=== PATIENT | female | born 1985 | race American Indian/Alaskan Native ===

== ENCOUNTER 2020-12-02 13:50 | Emergency (ER) | payer OTHER ==
[2020-12-02] MEDS ORDERED: ASPIRIN 325 MG TAB PO ONE (15:06)
[2020-12-02 15:23] LABS: Basophils # (Auto) 0.2 K/mm3 (0.0-0.1); Basophils % (Auto) 0.9 % (0.0-1.8); Hematocrit 38.5 % (30.3-42.9); Hemoglobin 13.5 gm/dl (10.1-14.3); Lymphocytes # (Auto) 2.6 K/mm3 (1.2-5.4); Lymphocytes % (Auto) 16.1 % (13.4-35.0); Mean Corpuscular HGB Conc 35 % (30-34); Mean Corpuscular Volume 84 fl (79-97); Monocytes # (Auto) 0.4 K/mm3 (0.0-0.8); Monocytes % (Auto) 2.7 % (0.0-7.3); Platelet Count 300 K/mm3 (140-440); Red Blood Count 4.61 M/mm3 (3.65-5.03); Red Cell Distribution Width 13.2 % (13.2-15.2)
[2020-12-02 15:44] LABS: Alanine Aminotransferase 12 units/L (7-56); BUN/Creatinine Ratio 13; Blood Urea Nitrogen 10 mg/dL (7-17); Calcium 8.7 mg/dL (8.4-10.2); Hemolysis Index 2
--- NOTE | 2020-12-02 15:49 | XRay Report ---
CHEST 1 VIEW INDICATION / CLINICAL INFORMATION: dizzy. COMPARISON: 05/03/2019 FINDINGS: SUPPORT DEVICES: None. HEART / MEDIASTINUM: No significant abnormality. LUNGS / PLEURA: No significant pulmonary or pleural abnormality. No pneumothorax. ADDITIONAL FINDINGS: No significant additional findings. IMPRESSION: 1. No acute findings. Signer Name: Sky Walden MD Signed: 12/02/2020 3:45 PM Workstation Name: [id number]
[2020-12-02] MEDS ORDERED: ONDANSETRON 4 MG/2 ML INJ IV ONE (22:45)
[2020-12-02] MEDS ORDERED: SODIUM CHLORIDE 0.9% 1000 ML 1,000 ML IV ONE (22:45)
[2020-12-02] MEDS ORDERED: FAMOTIDINE 20 MG/2 ML INJ IV ONE (22:46)
--- NOTE | 2020-12-02 23:41 | Cat Scan Report ---
CT head without contrast INDICATION : Dizziness. TECHNIQUE: Axial imaging performed from the skull apex through the skull base without the use of con trast. All CT examinations performed at this facility utilize dose modulation, iterative reconstruct ion or weight-based dosing, when appropriate, to reduce radiation dose to as low as reasonably achiev able. COMPARISON: None FINDINGS: No acute intracranial hemorrhage or parenchymal abnormality. Ventricles are normal in si ze and appear symmetric. Soft tissues including the orbits appear normal. No acute osseous abnorm ality. Sinuses and mastoid air cells are clear. IMPRESSION: No acute abnormality. Signer Name: Lon Novoa MD Signed: 12/02/2020 11:37 PM Workstation Name: [id number]
--- NOTE | 2020-12-03 02:03 | Emergency Department Report ---
ED General Adult HPI - General Chief complaint: Dizziness Stated complaint: DIZZY/VOMITING Source: patient Mode of arrival: Wheelchair Limitations: No Limitations - History of Present Illness Initial comments: Patient is a 34-year-old -[place] female with a history of morbid obesity, hypertension, frw-goovuvv-hgvawwcef diabetes who presents to the ED with complaint of acute onset persistent intractable nausea and vomiting, lightheadedness and dizziness for the last 3 days. Patient states that she has not been able to keep anything down in the last 3 days since the onset of the symptoms. Patient states that she has felt dizzy with any movement and headache. Patient denies fever, chills, diarrhea, abdominal pain, chest pain or shortness of breath, change in vision or headache. Patient states that no one else at home has had similar symptoms. MD Complaint: Nausea and vomiting, lightheadedness and dizziness -: Sudden, days(s) (3) Location: head, abdomen Radiation: non-radiation Severity scale (0 -10): 6 Quality: aching Consistency: constant Improves with: none Worsens with: movement Associated Symptoms: denies other symptoms, loss of appetite, malaise, nausea/vomiting. denies: confusion, chest pain, cough, diaphoresis, fever/chills, headaches, rash, seizure, shortness of breath, weakness Treatments Prior to Arrival: none - Related Data Home Medications Medication Instructions Recorded Confirmed Last Taken Aspirin [Baby Aspirin] 81 mg PO DAILY 02/11/13 04/12/14 04/11/14 81 mg Ferrous Sulfate [Ferrous Sulfate 300 mg PO DAILY 03/11/14 04/12/14 03/11/14 11:00 Oral Liq 300 Mg/5 Ml] Insulin NPH, Human [NovoLIN N] 10 units SC QPM 03/11/14 04/12/14 04/11/14 Insulin NPH, Human [NovoLIN N] 24 units SC QAM 03/11/14 04/12/14 04/11/14 Insulin Regular, Human [HumuLIN R] 12 units SC QAM 03/11/14 04/12/14 04/11/14 08:30 labetaloL [Normodyne] 400 mg PO BID 03/11/14 04/12/14 04/11/14 21:30 Previous Rx's Medication Instructions Recorded Last Taken Type Docusate Sodium [Colace CAP] 100 mg PO Q12H PRN #60 capsule 03/14/14 04/03/14 Rx Ferrous Sulfate [Feosol 325 MG tab] 325 mg PO TID #90 tablet 03/14/14 04/11/14 Rx labetaloL [Labetalol 200mg TAB] 200 mg PO BID #60 tablet 03/14/14 04/11/14 21:30 Rx Cholecalciferol (Vitamin D3) 5,000 unit PO DAILY #30 tablet 03/17/14 Unknown Rx [Vitamin D3] NIFEdipine*For Tocolysis only* 20 mg PO TID #180 capsule 03/17/14 04/11/14 21:30 Rx [PROCARDIA*For Tocolysis only*] Ferrous Sulfate [Feosol 325 MG tab] 325 mg PO TID #90 tablet 04/12/14 Unknown Rx Ibuprofen [Motrin 800 MG tab] 800 mg PO Q8H PRN #90 tablet 04/12/14 Unknown Rx NIFEdipine XL [Procardia Xl] 60 mg PO QDAY #30 tablet 04/12/14 Unknown Rx glipiZIDE [glipiZIDE XL] 5 mg PO DAILY #30 tab.er.24 04/12/14 Unknown Rx metFORMIN [Glucophage] 500 mg PO BID #60 tablet 04/12/14 Unknown Rx oxyCODONE /ACETAMINOPHEN [Percocet 1 tab PO Q6HR PRN #30 tablet 04/12/14 Unknown Rx 5/325 mg] Metoprolol [Lopressor] 12.5 mg PO BID #30 tablet 06/23/14 Unknown Rx Acetaminophen/Codeine [Tylenol #3] 1 tab PO Q6H PRN #20 tab 04/21/15 Unknown Rx Ibuprofen [Motrin 800 MG tab] 800 mg PO Q8HR PRN #30 tablet 04/21/15 Unknown Rx Penicillin Vk [Veetids TAB] 500 mg PO Q6HR #40 tablet 04/21/15 Unknown Rx Lispro Insulin [HumaLOG] See Protocol SQ QAC #10 ml 05/03/19 Unknown Rx lisinopriL [Zestril TAB] 20 mg PO QDAY #30 tablet 05/03/19 Unknown Rx Famotidine [Pepcid] 20 mg PO BID #60 tablet 12/03/20 Unknown Rx Meclizine [Antivert] 25 mg PO TID PRN #30 tab 12/03/20 Unknown Rx Ondansetron [Zofran Odt] 4 mg PO Q8HR PRN #20 tab.rapdis 12/03/20 Unknown Rx Allergies Allergy/AdvReac Type Severity Reaction Status Date / Time No Known Allergies Allergy Verified 12/02/20 15:02 ED Review of Systems ROS: Stated complaint: DIZZY/VOMITING Other details as noted in HPI Constitutional: malaise, weakness, other (Lightheadedness) Eyes: denies: eye pain, eye discharge, vision change ENT: denies: ear pain, throat pain Respiratory: denies: cough, shortness of breath, wheezing Cardiovascular: denies: chest pain, palpitations Endocrine: no symptoms reported Gastrointestinal: nausea, vomiting. denies: abdominal pain, diarrhea, constipation, hematemesis Genitourinary: denies: urgency, dysuria, discharge Musculoskeletal: myalgia. denies: back pain, joint swelling Skin: denies: rash, lesions Neurological: headache. denies: weakness, paresthesias Psychiatric: anxiety. denies: depression, auditory hallucinations, visual hallucinations, suicidal thoughts Hematological/Lymphatic: denies: easy bleeding, easy bruising ED Past Medical Hx - Past Medical History Hx Hypertension: Yes Hx Congestive Heart Failure: No Hx Diabetes: Yes Hx Deep Vein Thrombosis: No Hx Renal Disease: No Hx Sickle Cell Disease: No Hx Seizures: No Hx Asthma: No Hx COPD: No Hx HIV: No - Surgical History Additional Surgical History: - Social History Smoking Status: Never Smoker Substance Use Type: None - Medications Home Medications: Home Medications Medication Instructions Recorded Confirmed Last Taken Type Aspirin [Baby Aspirin] 81 mg PO DAILY 02/11/13 04/12/14 04/11/14 History 81 mg Ferrous Sulfate [Ferrous Sulfate 300 mg PO DAILY 03/11/14 04/12/14 03/11/14 11:00 History Oral Liq 300 Mg/5 Ml] Insulin NPH, Human [NovoLIN N] 10 units SC QPM 03/11/14 04/12/14 04/11/14 History Insulin NPH, Human [NovoLIN N] 24 units SC QAM 03/11/14 04/12/14 04/11/14 History Insulin Regular, Human [HumuLIN R] 12 units SC QAM 03/11/14 04/12/14 04/11/14 08:30 History labetaloL [Normodyne] 400 mg PO BID 03/11/14 04/12/14 04/11/14 21:30 History Docusate Sodium [Colace CAP] 100 mg PO Q12H PRN #60 capsule 03/14/14 04/12/14 04/03/14 Rx Ferrous Sulfate [Feosol 325 MG tab] 325 mg PO TID #90 tablet 03/14/14 04/12/14 04/11/14 Rx labetaloL [Labetalol 200mg TAB] 200 mg PO BID #60 tablet 03/14/14 04/12/14 04/11/14 21:30 Rx Cholecalciferol (Vitamin D3) 5,000 unit PO DAILY #30 tablet 03/17/14 04/12/14 Unknown Rx [Vitamin D3] NIFEdipine*For Tocolysis only* 20 mg PO TID #180 capsule 03/17/14 04/12/1403/15 21:30 Rx [PROCARDIA*For Tocolysis only*] Ferrous Sulfate [Feosol 325 MG tab] 325 mg PO TID #90 tablet 04/12/14 Unknown Rx Ibuprofen [Motrin 800 MG tab] 800 mg PO Q8H PRN #90 tablet 04/12/14 Unknown Rx NIFEdipine XL [Procardia Xl] 60 mg PO QDAY #30 tablet 04/12/14 Unknown Rx glipiZIDE [glipiZIDE XL] 5 mg PO DAILY #30 tab.er.24 04/12/14 Unknown Rx metFORMIN [Glucophage] 500 mg PO BID #60 tablet 04/12/14 Unknown Rx oxyCODONE /ACETAMINOPHEN [Percocet 1 tab PO Q6HR PRN #30 tablet 04/12/14 Unknown Rx 5/325 mg] Metoprolol [Lopressor] 12.5 mg PO BID #30 tablet 06/23/14 Unknown Rx Acetaminophen/Codeine [Tylenol #3] 1 tab PO Q6H PRN #20 tab 04/21/15 Unknown Rx Ibuprofen [Motrin 800 MG tab] 800 mg PO Q8HR PRN #30 tablet 04/21/15 Unknown Rx Penicillin Vk [Veetids TAB] 500 mg PO Q6HR #40 tablet 04/21/15 Unknown Rx Lispro Insulin [HumaLOG] See Protocol SQ QAC #10 ml 05/03/19 Unknown Rx lisinopriL [Zestril TAB] 20 mg PO QDAY #30 tablet 05/03/19 Unknown Rx Famotidine [Pepcid] 20 mg PO BID #60 tablet 12/03/20 Unknown Rx Meclizine [Antivert] 25 mg PO TID PRN #30 tab 12/03/20 Unknown Rx Ondansetron [Zofran Odt] 4 mg PO Q8HR PRN #20 tab.rapdis 12/03/20 Unknown Rx ED Physical Exam - General Limitations: No Limitations General appearance: alert, in no apparent distress, anxious - Head Head exam: Present: atraumatic, normocephalic, normal inspection - Eye Eye exam: Present: normal appearance, PERRL, EOMI Pupils: Present: normal accommodation - ENT ENT exam: Present: normal exam, normal orophraynx, mucous membranes moist, TM's normal bilaterally, normal external ear exam - Neck Neck exam: Present: normal inspection, full ROM - Respiratory Respiratory exam: Present: normal lung sounds bilaterally. Absent: respiratory distress, wheezes, rales, rhonchi, chest wall tenderness, accessory muscle use, decreased breath sounds, prolonged expiratory - Cardiovascular Cardiovascular Exam: Present: normal rhythm, tachycardia, normal heart sounds. Absent: systolic murmur, diastolic murmur, rubs, gallop - GI/Abdominal GI/Abdominal exam: Present: soft, normal bowel sounds. Absent: tenderness, guarding, rebound, hyperactive bowel sounds, hypoactive bowel sounds, organomegaly - Extremities Exam Extremities exam: Present: normal inspection, full ROM, normal capillary refill - Back Exam Back exam: Present: normal inspection, full ROM. Absent: tenderness, CVA tenderness (R), CVA tenderness (L), muscle spasm, paraspinal tenderness, vertebral tenderness - Neurological Exam Neurological exam: Present: alert, oriented X3, CN II-XII intact, normal gait, reflexes normal - Psychiatric Psychiatric exam: Present: normal affect, normal mood, anxious - Skin Skin exam: Present: warm, dry, intact, normal color. Absent: rash ED Course Vital Signs 12/02/20 12/03/20 12/03/20 15:05 02:25 04:41 Temperature 98.2 F Pulse Rate 105 H 111 H 111 H Pulse Rate [ Lying] Pulse Rate [ Sitting] Pulse Rate [ Standing] Respiratory 20 16 14 Rate Blood Pressure 237/137 Blood Pressure 170/102 171/100 [Left] Blood Pressure [Lying] Blood Pressure [Sitting] Blood Pressure [Standing] O2 Sat by Pulse 100 Oximetry 12/03/20 04:44 Temperature Pulse Rate Pulse Rate [ 111 H Lying] Pulse Rate [ 116 H Sitting] Pulse Rate [ 123 H Standing] Respiratory Rate Blood Pressure Blood Pressure [Left] Blood Pressure 171/100 [Lying] Blood Pressure 178/94 [Sitting] Blood Pressure 176/96 [Standing] O2 Sat by Pulse Oximetry ED Medical Decision Making - Lab Data Result diagrams: 12/02/20 15:11 12/02/20 15:11 - Radiology Data Radiology results: report reviewed, image reviewed [facility] [address] [place] [address] XRay Report Signed Patient: RONNY SCHMIDT MR#: [id number] : 1985 Acct:[id number] Age/Sex: 34 / F ADM Date: 12/02/20 Loc: ED Attending Dr: Ordering Physician: ED MD CAPO Date of Service: 12/02/20 Procedure(s): XR chest routine 2V Accession Number(s): [id number] cc: ED MD CAPO Fluoro Time In Minutes: CHEST 1 VIEW INDICATION / CLINICAL INFORMATION: dizzy. COMPARISON: 05/03/2019 FINDINGS: SUPPORT DEVICES: None. HEART / MEDIASTINUM: No significant abnormality. LUNGS / PLEURA: No significant pulmonary or pleural abnormality. No pneumothorax. ADDITIONAL FINDINGS: No significant additional findings. IMPRESSION: 1. No acute findings. Signer Name: Sky Walden MD Signed: 12/02/2020 3:45 PM Workstation Name: [id number] Transcribed By: SB Dictated By: SKY WALDEN MD Electronically Authenticated By: SKY WALDEN MD Signed Date/Time: 12/02/201544 DD/ 44 TD/TT: [facility] [address] [place] [address] Cat Scan Report Signed Patient: RONNY SCHMIDT MR#: [id number] : 1985 Acct:[id number] Age/Sex: 34 / F ADM Date: 12/02/20 Loc: ED Attending Dr: Ordering Physician: CHRIS DIOP Date of Service: 12/02/20 Procedure(s): CT head/brain wo con Accession Number(s): [id number] cc: CHRIS DIOP CT head without contrast INDICATION : Dizziness. TECHNIQUE: Axial imaging performed from the skull apex through the skull base without the use of contrast. All CT examinations performed at this facility utilize dose modulation, iterative reconstruction or weight-based dosing, when appropriate, to reduce radiation dose to as low as reasonably achievable. COMPARISON: None FINDINGS: No acute intracranial hemorrhage or parenchymal abnormality. Ventricles are normal in size and appear symmetric. Soft tissues including the orbits appear normal. No acute osseous abnormality. Sinuses and mastoid air cells are clear. IMPRESSION: No acute abnormality. Signer Name: Lon Novoa MD Signed: 12/02/2020 11:37 PM Workstation Name: [id number] Transcribed By: BC Dictated By: Lon Novoa MD Electronically Authenticated By: Lon Novoa MD Signed Date/Time: 12/02/202336 DD/ 35 TD/TT: - Medical Decision Making This is a 34-year-old -Swazi female with a history of morbid obesity, hypertension, wuy-clmbict-xcxkhlimc diabetes who presents to the ED with complaint of acute onset persistent intractable nausea and vomiting, lightheadedness and dizziness for the last 3 days. Patient states that she has not been able to keep anything down in the last 3 days since the onset of the symptoms. Patient states that she has felt dizzy with any movement and headache. In the ED, patient is alert and oriented x3 and is not in any distress but tachycardic in triage. Patient was treated in the ED with 3 L of normal saline IV, antiemetics and anxiolytics. Lab test results were reviewed and initially the patient had hyperglycemia of 310 mg/dL but after 2 L of IV fluids, the iszda-yh-lrie glucose was 180 mg/dL. The head CT scan without contrast showed no acute intracranial abnormalities or hemorrhage. The chest x- ray showed no acute cardiopulmonary abnormalities or pneumonitis. On reevaluation, patient's tachycardia improved significantly and resolved, and patient felt better, was ambulatory in the ED with no difficulty and the orthostatic blood pressure was unremarkable.. Patient was therefore discharged home on antiemetics and advised to continue taking her regular medications as well as blood pressure medications. Patient is advised to maintain a clear liquid diet for 12 to 24 hours and follow-up with her primary care physician in 5 to 7 days for reevaluation. Patient was also advised to return to the ED immediately if symptoms get worse. - Differential Diagnosis dizziness; lightheadedness; dehydration; Critical care attestation.: If time is entered above; I have spent that time in minutes in the direct care of this critically ill patient, excluding procedure time. ED Disposition Clinical Impression: Nausea and vomiting in adult patient, Dizziness and giddiness, Viral gastroenteritis Disposition: 01 HOME / SELF CARE / HOMELESS Is pt being admited?: No Does the pt Need Aspirin: No Condition: Stable Instructions: Viral Gastroenteritis, Adult, Ovvj-cq-Daoi, Nausea and Vomiting, Adult, Atcr-no-Yenq, Dizziness, Ybqt-qd-Cjyk Additional Instructions: All lab test results were reviewed and are all nonactionable. Chest x-ray showed no acute cardiopulmonary abnormalities or pneumonitis. The head CT scan without contrast showed no acute intracranial abnormalities or hemorrhage. Your symptoms are likely due to a viral syndrome, leading to persistent nausea and vomiting and lightheadedness or dizziness. Therefore take medications with food, drink plenty of fluids and follow-up with your primary care physician in 3 to 5 days for reevaluation. Return to the ED immediately if symptoms get worse. Prescriptions: Meclizine [Antivert] 25 mg PO TID PRN #30 tab PRN Reason: Vertigo Famotidine [Pepcid] 20 mg PO BID #60 tablet Ondansetron [Zofran Odt] 4 mg PO Q8HR PRN #20 tab.rapdis PRN Reason: Nausea Referrals: [facility] [Provider Group] - 3-5 Days Time of Disposition: 06:37 Print Language: AZERBAIJANI
[2020-12-03] MEDS ORDERED: SODIUM CHLORIDE 0.9% 1000 ML 1,000 ML IV ONE ×2 (02:09→05:05)
[2020-12-03 04:42] VITALS: BP 171/100
[2020-12-03] MEDS ORDERED: LORazepam 2 MG/ML VIAL IV ONE (05:05)
--- NOTE | 2020-12-05 13:23 | Electrocardiograph Report ---
[facility] Test Date: 2020-12-02 Test Time: 15:19:48 Pat Name: RONNY CSHMIDT Department: Room: Gender: F Operations Dispatcher: TV : 1985 Requested By: LARS BERMEO Order Number: [id number] Reading MD: Lenka Mo Measurements Intervals [place] Rate: 100 P: 61 GA: 155 QRS: 30 QRSD: 71 T: 54 QT: 389 QTc: 504 Interpretive Statements Sinus tachycardia Probable left atrial enlargement Prolonged QT interval No previous ECG available for comparison Electronically Signed On 12-05-2020 13:23:22 EDT by Lenka Mo
== END 2020-12-03 06:45 | disposition home or self-care (01) ==
LOC: ED 13:50
DX: A08.4 Viral intestinal infection, unspecified (principal); R11.2 Nausea with vomiting, unspecified; R42 Dizziness and giddiness; E11.9 Type 2 diabetes mellitus without complications; I10 Essential (primary) hypertension; E66.01 Morbid (severe) obesity due to excess calories; Z68.41 Body mass index [BMI] 40.0-44.9, adult; Z79.899 Other long term (current) drug therapy; Z98.890 Other specified postprocedural states
CPT/HCPCS: 36415; 70450; 71046; 80053; 82962; 84484; 85025; 93005; 96361; 96374; 96375; 99284; J2060; J2405; J7030

== ENCOUNTER 2020-12-24 11:29 | Emergency (ER) | payer SELFPAY ==
[2020-12-24] MEDS ORDERED: SODIUM CHLORIDE 0.9% 1000 ML 1,000 ML IV ONE ×2 (12:22→15:53)
[2020-12-24] MEDS ORDERED: METOCLOPRAMIDE 10 MG/2 ML INJ IV ONE (12:22)
--- NOTE | 2020-12-24 12:26 | Emergency Department Report ---
HPI - General Chief Complaint: Dizziness Time Seen by Provider: 12/24/20 12:21 - HPI HPI: This is a 34-year-old -Turkish female presents to the emergency department with a complaint of a 3-week history of intermittent, but progressively worsening, nausea with vomiting, and lightheadedness/dizziness. The patient went into see her PCP, whom she has been following up with over the past few weeks regarding the symptoms, and she was told to come to the emergency department after she was found to have some borderline hypotension and hypoglycemia. The patient has a history of insulin-dependent diabetes. Her Accu-Chek in the office today was about 400. Blood work that she brought with her also shows some mild hypokalemia. Her blood pressure in the office today was slightly low at a systolic of about 90. She denies any headache, vision ch daniel, slurred speech, numbness or paresthesias, fever, chest pain. She did not take anything, nor receive anything, for her symptoms prior to presentation today. ED Past Medical Hx - Past Medical History Previous Medical History?: Yes Hx Hypertension: Yes Hx Congestive Heart Failure: No Hx Diabetes: Yes Hx Deep Vein Thrombosis: No Hx Renal Disease: No Hx Sickle Cell Disease: No Hx Seizures: No Hx Asthma: No Hx COPD: No Hx HIV: No - Surgical History Past Surgical History?: Yes Additional Surgical History: - Social History Smoking Status: Never Smoker Substance Use Type: None - Medications Home Medications: Home Medications Medication Instructions Recorded Confirmed Last Taken Type Aspirin [Baby Aspirin] 81 mg PO DAILY 02/11/13 04/12/14 04/11/14 History 81 mg Ferrous Sulfate [Ferrous Sulfate 300 mg PO DAILY 03/11/14 04/12/14 03/11/14 11:00 History Oral Liq 300 Mg/5 Ml] Insulin NPH, Human [NovoLIN N] 10 units SC QPM 03/11/14 04/12/14 04/11/14 History Insulin NPH, Human [NovoLIN N] 24 units SC QAM 03/11/14 04/12/14 04/11/14 History Insulin Regular, Human [HumuLIN R] 12 units SC QAM 03/11/14 04/12/14 04/11/14 08:30 History labetaloL [Normodyne] 400 mg PO BID 03/11/14 04/12/14 04/11/14 21:30 History Docusate Sodium [Colace CAP] 100 mg PO Q12H PRN #60 capsule 03/14/14 04/12/14 04/03/14 Rx Ferrous Sulfate [Feosol 325 MG tab] 325 mg PO TID #90 tablet 03/14/14 04/12/14 04/11/14 Rx labetaloL [Labetalol 200mg TAB] 200 mg PO BID #60 tablet 03/14/14 04/12/14 04/11/14 21:30 Rx Cholecalciferol (Vitamin D3) 5,000 unit PO DAILY #30 tablet 03/17/14 04/12/14 Unknown Rx [Vitamin D3] NIFEdipine*For Tocolysis only* 20 mg PO TID #180 capsule 03/17/14 04/12/14 04/11/14 21:30 Rx [PROCARDIA*For Tocolysis only*] Ferrous Sulfate [Feosol 325 MG tab] 325 mg PO TID #90 tablet 04/12/14 Unknown Rx Ibuprofen [Motrin 800 MG tab] 800 mg PO Q8H PRN #90 tablet 04/12/14 Unknown Rx NIFEdipine XL [Procardia Xl] 60 mg PO QDAY #30 tablet 04/12/14 Unknown Rx glipiZIDE [glipiZIDE XL] 5 mg PO DAILY #30 tab.er.24 04/12/14 Unknown Rx metFORMIN [Glucophage] 500 mg PO BID #60 tablet 04/12/14 Unknown Rx oxyCODONE /ACETAMINOPHEN [Percocet 1 tab PO Q6HR PRN #30 tablet 04/12/14 Unknown Rx 5/325 mg] Metoprolol [Lopressor] 12.5 mg PO BID #30 tablet 06/23/14 Unknown Rx Acetaminophen/Codeine [Tylenol #3] 1 tab PO Q6H PRN #20 tab 04/21/15 Unknown Rx Ibuprofen [Motrin 800 MG tab] 800 mg PO Q8HR PRN #30 tablet 04/21/15 Unknown Rx Penicillin Vk [Veetids TAB] 500 mg PO Q6HR #40 tablet 04/21/15 Unknown Rx Lispro Insulin [HumaLOG] See Protocol SQ QAC #10 ml 05/03/19 Unknown Rx lisinopriL [Zestril TAB] 20 mg PO QDAY #30 tablet 05/03/19 Unknown Rx Famotidine [Pepcid] 20 mg PO BID #60 tablet 12/03/20 Unknown Rx Meclizine [Antivert] 25 mg PO TID PRN #30 tab 12/03/20 Unknown Rx Ondansetron [Zofran Odt] 4 mg PO Q8HR PRN #20 tab.rapdis 12/03/20 Unknown Rx Metoclopramide [Reglan] 10 mg PO TID PRN #20 tab 12/24/20 Unknown Rx ED Review of Systems ROS: Stated complaint: dr albert, dizzy vomiting nausea Other details as noted in HPI Comment: All other systems reviewed and negative Constitutional: denies: chills, fever Eyes: denies: eye pain, vision change ENT: denies: ear pain, throat pain Respiratory: denies: cough, shortness of breath Cardiovascular: denies: chest pain, palpitations Gastrointestinal: nausea, vomiting Genitourinary: denies: dysuria, discharge Musculoskeletal: denies: back pain, arthralgia Skin: denies: rash, lesions Neurological: other (Dizziness/lightheadedness). denies: headache Physical Exam - Physical Exam Vital Signs: Vital Signs 12/24/20 11:59 Temperature 98.1 F Pulse Rate 112 H Respiratory 18 Rate Blood Pressure 128/88 O2 Sat by Pulse 98 Oximetry Physical Exam: GENERAL: The patient is well-developed well-nourished. HENT: Normocephalic. Atraumatic. Patient has moist mucous membranes. EYES: Extraocular motions are intact. No nystagmus. NECK: Supple. Trachea is midline. CHEST/LUNGS: Clear to auscultation. There is no respiratory distress noted. HEART/CARDIOVASCULAR: Regular. There is no tachycardia. There is no murmur. ABDOMEN: Abdomen is soft, nontender. Patient has normal bowel sounds. SKIN: Skin is warm and dry. NEURO: The patient is awake, alert, and oriented. The patient is cooperative. The patient has no focal neurologic deficits. Normal speech. No facial asymmetry. Cranial nerves II through XII grossly intact. No pronator drift or dysmetria. MUSCULOSKELETAL: There is no tenderness or deformity. There is no limitation range of motion. ED Course Vital Signs 12/24/20 11:59 Temperature 98.1 F Pulse Rate 112 H Respiratory 18 Rate Blood Pressure 128/88 O2 Sat by Pulse 98 Oximetry ED Medical Decision Making - Lab Data Result diagrams: 12/24/20 12:58 12/24/20 12:58 Lab Results 12/24/20 12/24/20 12/24/20 Range/Units 12:58 12:58 12:58 WBC 13.1 H (4.5-11.0) K/mm3 RBC 4.59 (3.65-5.03) M/mm3 Hgb 12.9 (10.1-14.3) gm/dl Hct 38.0 (30.3-42.9) % MCV 83 (79-97) fl MCH 28 (28-32) pg MCHC 34 (30-34) % RDW 13.6 (13.2-15.2) % Plt Count 349 (140-440) K/mm3 Lymph % (Auto) 28.2 (13.4-35.0) % Edmunds % (Auto) 3.8 (0.0-7.3) % Eos % (Auto) 0.7 (0.0-4.3) % Baso % (Auto) 0.6 (0.0-1.8) % Lymph # (Auto) 3.7 (1.2-5.4) K/mm3 Edmunds # (Auto) 0.5 (0.0-0.8) K/mm3 Eos # (Auto) 0.1 (0.0-0.4) K/mm3 Baso # (Auto) 0.1 (0.0-0.1) K/mm3 Seg Neutrophils % 66.7 (40.0-70.0) % Seg Neutrophils # 8.8 H (1.8-7.7) K/mm3 VBG pH (7.320-7.420) Sodium 135 L (137-145) mmol/L Potassium 3.4 L (3.6-5.0) mmol/L Chloride 93.0 L (98-107) mmol/L Carbon Dioxide 33 H (22-30) mmol/L Anion Gap 12 mmol/L BUN 11 (7-17) mg/dL Creatinine 1.0 (0.6-1.2) mg/dL Estimated GFR > 60 ml/min BUN/Creatinine Ratio 11 % Glucose 434 H (65-100) mg/dL POC Glucose (70-105) mg/dL Calcium 9.2 (8.4-10.2) mg/dL Total Bilirubin 0.30 (0.1-1.2) mg/dL AST 7 (5-40) units/L ALT 6 L (7-56) units/L Alkaline Phosphatase 169 H (35-129) units/L Troponin T < 0.010 (0.00-0.029) ng/mL Total Protein 7.7 (6.3-8.2) g/dL Albumin 3.0 L (3.9-5) g/dL Albumin/Globulin Ratio 0.6 % TSH 1.310 (0.270-4.200) mlU/mL HCG, Qual (Negative) 12/24/20 12/24/20 12/24/20 Range/Units 12:58 12:58 14:24 WBC (4.5-11.0) K/mm3 RBC (3.65-5.03) M/mm3 Hgb (10.1-14.3) gm/dl Hct (30.3-42.9) % MCV (79-97) fl MCH (28-32) pg MCHC (30-34) % RDW (13.2-15.2) % Plt Count (140-440) K/mm3 Lymph % (Auto) (13.4-35.0) % Edmunds % (Auto) (0.0-7.3) % Eos % (Auto) (0.0-4.3) % Baso % (Auto) (0.0-1.8) % Lymph # (Auto) (1.2-5.4) K/mm3 Edmunds # (Auto) (0.0-0.8) K/mm3 Eos # (Auto) (0.0-0.4) K/mm3 Baso # (Auto) (0.0-0.1) K/mm3 Seg Neutrophils % (40.0-70.0) % Seg Neutrophils # (1.8-7.7) K/mm3 VBG pH 7.392 (7.320-7.420) Sodium (137-145) mmol/L Potassium (3.6-5.0) mmol/L Chloride (98-107) mmol/L Carbon Dioxide (22-30) mmol/L Anion Gap mmol/L BUN (7-17) mg/dL Creatinine (0.6-1.2) mg/dL Estimated GFR ml/min BUN/Creatinine Ratio % Glucose (65-100) mg/dL POC Glucose 341 H (70-105) mg/dL Calcium (8.4-10.2) mg/dL Total Bilirubin (0.1-1.2) mg/dL AST (5-40) units/L ALT (7-56) units/L Alkaline Phosphatase (35-129) units/L Troponin T (0.00-0.029) ng/mL Total Protein (6.3-8.2) g/dL Albumin (3.9-5) g/dL Albumin/Globulin Ratio % TSH (0.270-4.200) mlU/mL HCG, Qual Negative (Negative) 12/24/20 Range/Units 15:51 WBC (4.5-11.0) K/mm3 RBC (3.65-5.03) M/mm3 Hgb (10.1-14.3) gm/dl Hct (30.3-42.9) % MCV (79-97) fl MCH (28-32) pg MCHC (30-34) % RDW (13.2-15.2) % Plt Count (140-440) K/mm3 Lymph % (Auto) (13.4-35.0) % Edmunds % (Auto) (0.0-7.3) % Eos % (Auto) (0.0-4.3) % Baso % (Auto) (0.0-1.8) % Lymph # (Auto) (1.2-5.4) K/mm3 Edmunds # (Auto) (0.0-0.8) K/mm3 Eos # (Auto) (0.0-0.4) K/mm3 Baso # (Auto) (0.0-0.1) K/mm3 Seg Neutrophils % (40.0-70.0) % Seg Neutrophils # (1.8-7.7) K/mm3 VBG pH (7.320-7.420) Sodium (137-145) mmol/L Potassium (3.6-5.0) mmol/L Chloride (98-107) mmol/L Carbon Dioxide (22-30) mmol/L Anion Gap mmol/L BUN (7-17) mg/dL Creatinine (0.6-1.2) mg/dL Estimated GFR ml/min BUN/Creatinine Ratio % Glucose (65-100) mg/dL POC Glucose 306 H (70-105) mg/dL Calcium (8.4-10.2) mg/dL Total Bilirubin (0.1-1.2) mg/dL AST (5-40) units/L ALT (7-56) units/L Alkaline Phosphatase (35-129) units/L Troponin T (0.00-0.029) ng/mL Total Protein (6.3-8.2) g/dL Albumin (3.9-5) g/dL Albumin/Globulin Ratio % TSH (0.270-4.200) mlU/mL HCG, Qual (Negative) - EKG Data -: EKG Interpreted by Me EKG shows normal: sinus rhythm, axis, intervals (Prolonged QTC), QRS complexes, ST-T waves Rate: tachycardia (108 bpm) - EKG Data When compared to previous EKG there are: no significant change Interpretation: unchanged when compared t (12/02/20) - Medical Decision Making This patient presents to the emergency department, sent in by her PCP, with a complaint of lightheadedness/dizziness, some borderline hypotension, and hyperglycemia. On examination the patient does not have any focal, motor or sensory deficits and her cranial nerves are intact. Heart and lung sounds are normal au scultation and the patient does not appear in any respiratory or acute distress. EKG does not have any morphology consistent with ST elevation myocardial infarction or any arrhythmia. Patient's labs show some mild hypokalemia, mild hypochloremia, and hyperglycemia with a blood sugar of about 430. There is no elevation in the anion gap, no venous acidosis, and therefore the patient does not appear in diabetic ketoacidosis. She was given IV fluid resuscitation and a dose of IV insulin. Upon reevaluation the patient's blood sugar has come down to about 300. She was also given a dose of IV Reglan and says that her nausea has completely resolved. The patient was able to pass an oral challenge. Vital signs have been reassuring throughout her ED course including being afebrile. The patient has been reevaluated multiple times over multiple hours and says she is feeling greatly improved. She will be discharged home to follow-up with her primary care physician. She still has to take her Metformin and her Basaglar. We discussed dietary changes such as decreased sugar, carbohydrates, starches, and keeping a blood sugar log. She will return to the emergency department with any worsening of her symptoms or with any acute distress. Critical Care Time: No Critical care attestation.: If time is entered above; I have spent that time in minutes in the direct care of this critically ill patient, excluding procedure time. ED Disposition Clinical Impression: Hyperglycemia, Hypokalemia Nausea & vomiting Qualifiers: Vomiting type: unspecified Vomiting Intractability: non-intractable Qualified Code(s): R11.2 - Nausea with vomiting, unspecified Disposition: HOME / SELF CARE / HOMELESS Is pt being admited?: No Condition: Stable Instructions: Hypokalemia, Hyperglycemia, Nausea and Vomiting, Adult, Potassium Content of Foods, Blood Glucose Monitoring, Adult Additional Instructions: Please follow-up with your primary care physician in the next few days. Try to stay away from foods that are high in sugar, carbohydrates and starches. Keep a blood sugar log. Return to the emergency department with any worsening of your symptoms, new or concerning symptoms not addressed during this current emergency department visit, or with any acute distress. Prescriptions: Metoclopramide [Reglan] 10 mg PO TID PRN #20 tab PRN Reason: Nausea Referrals: PRIMARY CARE, [Primary Care Provider] - 2-3 Days Time of Disposition: 15:42
[2020-12-24 13:42] LABS: Alanine Aminotransferase 6 units/L (7-56); BUN/Creatinine Ratio 11; Blood Urea Nitrogen 11 mg/dL (7-17); Calcium 9.2 mg/dL (8.4-10.2); Hemolysis Index 5
[2020-12-24 13:44] LABS: Basophils # (Auto) 0.1 K/mm3 (0.0-0.1); Basophils % (Auto) 0.6 % (0.0-1.8); Eosinophils # (Auto) 0.1 K/mm3 (0.0-0.4); Eosinophils % (Auto) 0.7 % (0.0-4.3); Hemoglobin 12.9 gm/dl (10.1-14.3); Lymphocytes # (Auto) 3.7 K/mm3 (1.2-5.4); Lymphocytes % (Auto) 28.2 % (13.4-35.0); Mean Corpuscular HGB Conc 34 % (30-34); Mean Corpuscular Volume 83 fl (79-97); Monocytes # (Auto) 0.5 K/mm3 (0.0-0.8); Monocytes % (Auto) 3.8 % (0.0-7.3); Platelet Count 349 K/mm3 (140-440); Red Blood Count 4.59 M/mm3 (3.65-5.03); Red Cell Distribution Width 13.6 % (13.2-15.2)
[2020-12-24] MEDS ORDERED: POTASSIUM CHLORIDE ER 10 MEQ TAB PO NR (13:47)
[2020-12-24] MEDS ORDERED: INSULIN REGULAR, HUMAN 100 UNITS/1 ML IV ONE (13:47)
[2020-12-24 16:24] VITALS: BP 127/86
--- NOTE | 2020-12-25 09:10 | Electrocardiograph Report ---
[facility] Test Date: 2020-12-24 Test Time: 12:03:16 Pat Name: RONNY SCHMIDT Department: Room: Gender: F Supervisor Contact And Service Clerks: [place]INGS : 1985 Requested By: ROBERTO GRANGER Order Number: [id number] Reading MD: Lenka Mo Measurements Intervals [place] Rate: 108 P: 66 MO: 150 QRS: 48 QRSD: 75 T: 56 QT: 380 QTc: 510 Interpretive Statements Sinus tachycardia Anteroseptal infarct, age indeterminate Prolonged QT interval Compared to ECG 12/02/2020 15:19:48 No significant change Electronically Signed On 12-25-2020 9:09:45 EDT by Lenka Mo
== END 2020-12-24 16:26 | disposition home or self-care (01) ==
LOC: ED 11:29
DX: E11.65 Type 2 diabetes mellitus with hyperglycemia (principal); E87.6 Hypokalemia; I10 Essential (primary) hypertension; Z98.890 Other specified postprocedural states; R11.2 Nausea with vomiting, unspecified; Z79.899 Other long term (current) drug therapy
CPT/HCPCS: 36415; 80053; 82805; 82962; 84443; 84484; 84703; 85025; 93005; 96361; 96374; 96375; 99283; J2765; J7030; J1815

== ENCOUNTER 2021-10-06 01:55 | Emergency (ER) | payer OTHER ==
[2021-10-06] MEDS ORDERED: cephALEXin 500 MG CAP PO ONE (09:08)
[2021-10-06] MEDS ORDERED: TETANUS,DIPH,PERTUSS(ACELL) VACCINE 0.5 ML SYRINGE IM ONE (09:08)
[2021-10-06] MEDS ORDERED: KETOROLAC 10 MG TAB PO ONE (09:08)
[2021-10-06] MEDS ORDERED: NEOMY 3.5 MG/BACIT 400 UNITS/POLY B 5000 UNITS/GM OINT PACKET TP ONE (09:10)
--- NOTE | 2021-10-06 09:54 | Emergency Department Report ---
- General Chief complaint: Extremity Problem,Nontraumatic Stated complaint: SKIN ON FOOT COMING OFF Time Seen by Provider: 10/06/21 08:43 Source: patient Mode of arrival: Ambulatory Limitations: No Limitations - History of Present Illness Initial comments: 35-year-old black female with a past medical history of diabetes presents to the emergency department for evaluation of bilateral foot blisters and wound. She states that [place] in [place] and just sat there with her feet in the pool for a while, and when she got out and went home, she started to have pain and burning to her bilateral feet. She states that later she noticed that she had some blisters to the area with some draining clear white fluid. She states that she had minimal pain but blisters kept getting worse and some burst open and skin sloughed off remaining open sore so she decided to come to the emergency department for further evaluation. She denies fever. complaint: other (Blisters and open sore) -: Sudden, days(s) (1) Tetanus Up to Date: no Location: L foot, R foot Severity: mild, moderate Severity scale (0 -10): 3 Quality: burning, aching Consistency: constant Associated symptoms: denies other symptoms Treatments Prior to Arrival: none - Related Data Home Medications Medication Instructions Recorded Confirmed Last Taken Aspirin [Baby Aspirin] 81 mg PO DAILY 02/11/13 04/12/14 04/11/14 81 mg Ferrous Sulfate [Ferrous Sulfate 300 mg PO DAILY 03/11/14 04/12/14 03/11/14 11:00 Oral Liq 300 Mg/5 Ml] Insulin NPH, Human [NovoLIN N] 10 units SC QPM 03/11/14 04/12/14 04/11/14 Insulin NPH, Human [NovoLIN N] 24 units SC QAM 03/11/14 04/12/14 04/11/14 Insulin Regular, Human [HumuLIN R] 12 units SC QAM 03/11/14 04/12/14 04/11/14 08:30 labetaloL [Normodyne] 400 mg PO BID 03/11/14 04/12/14 04/11/14 21:30 Previous Rx's Medication Instructions Recorded Last Taken Type Docusate Sodium [Colace CAP] 100 mg PO Q12H PRN #60 capsule 03/14/14 04/03/14 Rx Ferrous Sulfate [Feosol 325 MG tab] 325 mg PO TID #90 tablet 03/14/14 04/11/14 Rx labetaloL [Labetalol 200mg TAB] 200 mg PO BID #60 tablet 03/14/14 04/11/14 21:30 Rx Cholecalciferol (Vitamin D3) 5,000 unit PO DAILY #30 tablet 03/17/14 Unknown Rx [Vitamin D3] NIFEdipine*For Tocolysis only* 20 mg PO TID #180 capsule 03/17/14 04/11/14 21:30 Rx [PROCARDIA*For Tocolysis only*] Ferrous Sulfate [Feosol 325 MG tab] 325 mg PO TID #90 tablet 04/12/14 Unknown Rx Ibuprofen [Motrin 800 MG tab] 800 mg PO Q8H PRN #90 tablet 04/12/14 Unknown Rx NIFEdipine XL [Procardia Xl] 60 mg PO QDAY #30 tablet 04/12/14 Unknown Rx glipiZIDE [glipiZIDE XL] 5 mg PO DAILY #30 tab.er.24 04/12/14 Unknown Rx metFORMIN [Glucophage] 500 mg PO BID #60 tablet 04/12/14 Unknown Rx oxyCODONE /ACETAMINOPHEN [Percocet 1 tab PO Q6HR PRN #30 tablet 04/12/14 Unknown Rx 5/325 mg] Metoprolol [Lopressor] 12.5 mg PO BID #30 tablet 06/23/14 Unknown Rx Acetaminophen/Codeine [Tylenol #3] 1 tab PO Q6H PRN #20 tab 04/21/15 Unknown Rx Ibuprofen [Motrin 800 MG tab] 800 mg PO Q8HR PRN #30 tablet 04/21/15 Unknown Rx Penicillin Vk [Veetids TAB] 500 mg PO Q6HR #40 tablet 04/21/15 Unknown Rx Lispro Insulin [HumaLOG] See Protocol SQ QAC #10 ml 05/03/19 Unknown Rx lisinopriL [Zestril TAB] 20 mg PO QDAY #30 tablet 05/03/19 Unknown Rx Famotidine [Pepcid] 20 mg PO BID #60 tablet 12/03/20 Unknown Rx Meclizine [Antivert] 25 mg PO TID PRN #30 tab 12/03/20 Unknown Rx Ondansetron [Zofran Odt] 4 mg PO Q8HR PRN #20 tab.rapdis 12/03/20 Unknown Rx Metoclopramide [Reglan] 10 mg PO TID PRN #20 tab 12/24/20 Unknown Rx Mupirocin [Bactroban 2%] 1 applic TP BID #1 tube 10/06/21 Unknown Rx cephALEXin [Keflex] 500 mg PO BID 7 Days #14 cap 10/06/21 Unknown Rx Allergies Allergy/AdvReac Type Severity Reaction Status Date / Time No Known Allergies Allergy Verified 10/06/21 02:40 Abscess Boil HPI - HPI Chief Complaint: Extremity Problem,Nontraumatic Stated Complaint: SKIN ON FOOT COMING OFF Time Seen by Provider: 10/06/21 08:43 Home Medications: Home Medications Medication Instructions Recorded Confirmed Last Taken Aspirin [Baby Aspirin] 81 mg PO DAILY 02/11/13 04/12/14 04/11/14 81 mg Ferrous Sulfate [Ferrous Sulfate 300 mg PO DAILY 03/11/14 04/12/14 03/11/14 11 :00 Oral Liq 300 Mg/5 Ml] Insulin NPH, Human [NovoLIN N] 10 units SC QPM 03/11/14 04/12/14 04/11/14 Insulin NPH, Human [NovoLIN N] 24 units SC QAM 03/11/14 04/12/14 04/11/14 Insulin Regular, Human [HumuLIN R] 12 units SC QAM 03/11/14 04/12/14 04/11/14 08:30 labetaloL [Normodyne] 400 mg PO BID 03/11/14 04/12/14 04/11/14 21:30 Previous Rx's Medication Instructions Recorded Last Taken Type Docusate Sodium [Colace CAP] 100 mg PO Q12H PRN #60 capsule 03/14/14 04/03/14 Rx Ferrous Sulfate [Feosol 325 MG tab] 325 mg PO TID #90 tablet 03/14/14 04/11/14 Rx labetaloL [Labetalol 200mg TAB] 200 mg PO BID #60 tablet 03/14/14 04/11/14 21:30 Rx Cholecalciferol (Vitamin D3) 5,000 unit PO DAILY #30 tablet 03/17/14 Unknown Rx [Vitamin D3] NIFEdipine*For Tocolysis only* 20 mg PO TID #180 capsule 03/17/14 04/11/14 21:30 Rx [PROCARDIA*For Tocolysis only*] Ferrous Sulfate [Feosol 325 MG tab] 325 mg PO TID #90 tablet 04/12/14 Unknown Rx Ibuprofen [Motrin 800 MG tab] 800 mg PO Q8H PRN #90 tablet 04/12/14 Unknown Rx NIFEdipine XL [Procardia Xl] 60 mg PO QDAY #30 tablet 04/12/14 Unknown Rx glipiZIDE [glipiZIDE XL] 5 mg PO DAILY #30 tab.er.24 04/12/14 Unknown Rx metFORMIN [Glucophage] 500 mg PO BID #60 tablet 04/12/14 Unknown Rx oxyCODONE /ACETAMINOPHEN [Percocet 1 tab PO Q6HR PRN #30 tablet 04/12/14 Unknown Rx 5/325 mg] Metoprolol [Lopressor] 12.5 mg PO BID #30 tablet 06/23/14 Unknown Rx Acetaminophen/Codeine [Tylenol #3] 1 tab PO Q6H PRN #20 tab 04/21/15 Unknown Rx Ibuprofen [Motrin 800 MG tab] 800 mg PO Q8HR PRN #30 tablet 04/21/15 Unknown Rx Penicillin Vk [Veetids TAB] 500 mg PO Q6HR #40 tablet 04/21/15 Unknown Rx Lispro Insulin [HumaLOG] See Protocol SQ QAC #10 ml 05/03/19 Unknown Rx lisinopriL [Zestril TAB] 20 mg PO QDAY #30 tablet 05/03/19 Unknown Rx Famotidine [Pepcid] 20 mg PO BID #60 tablet 12/03/20 Unknown Rx Meclizine [Antivert] 25 mg PO TID PRN #30 tab 12/03/20 Unknown Rx Ondansetron [Zofran Odt] 4 mg PO Q8HR PRN #20 tab.rapdis 12/03/20 Unknown Rx Metoclopramide [Reglan] 10 mg PO TID PRN #20 tab 12/24/20 Unknown Rx Mupirocin [Bactroban 2%] 1 applic TP BID #1 tube 10/06/21 Unknown Rx cephALEXin [Keflex] 500 mg PO BID 7 Days #14 cap 10/06/21 Unknown Rx Allergies/Adverse Reactions: Allergies Allergy/AdvReac Type Severity Reaction Status Date / Time No Known Allergies Allergy Verified 10/06/21 02:40 ED Review of Systems ROS: Stated complaint: SKIN ON FOOT COMING OFF Other details as noted in HPI Comment: All other systems reviewed and negative Constitutional: denies: chills, fever ENT: denies: congestion Respiratory: denies: shortness of breath, SOB with exertion, SOB at rest Cardiovascular: denies: chest pain, palpitations Gastrointestinal: denies: abdominal pain, nausea, vomiting Genitourinary: denies: urgency, dysuria Musculoskeletal: denies: back pain Skin: lesions Neurological: denies: headache, weakness ED Past Medical Hx - Past Medical History Previous Medical History?: Yes Hx Hypertension: Yes Hx Congestive Heart Failure: No Hx Diabetes: Yes Hx Deep Vein Thrombosis: No Hx Renal Disease: No Hx Sickle Cell Disease: No Hx Seizures: No Hx Asthma: No Hx COPD: No Hx HIV: No - Surgical History Past Surgical History?: Yes Additional Surgical History: - Social History Smoking Status: Never Smoker Substance Use Type: None - Medications Home Medications: Home Medications Medication Instructions Recorded Confirmed Last Taken Type Aspirin [Baby Aspirin] 81 mg PO DAILY 02/11/13 04/12/14 04/11/14 History 81 mg Ferrous Sulfate [Ferrous Sulfate 300 mg PO DAILY 03/11/14 04/12/14 03/11/14 11:00 History Oral Liq 300 Mg/5 Ml] Insulin NPH, Human [NovoLIN N] 10 units SC QPM 03/11/14 04/12/14 04/11/14 Hist ory Insulin NPH, Human [NovoLIN N] 24 units SC QAM 03/11/14 04/12/14 04/11/14 History Insulin Regular, Human [HumuLIN R] 12 units SC QAM 03/11/14 04/12/14 04/11/14 08:30 History labetaloL [Normodyne] 400 mg PO BID 03/11/14 04/12/14 04/11/14 21:30 History Docusate Sodium [Colace CAP] 100 mg PO Q12H PRN #60 capsule 03/14/14 04/12/14 04/03/14 Rx Ferrous Sulfate [Feosol 325 MG tab] 325 mg PO TID #90 tablet 03/14/14 04/12/14 04/11/14 Rx labetaloL [Labetalol 200mg TAB] 200 mg PO BID #60 tablet 03/14/14 04/12/14 04/11/14 21:30 Rx Cholecalciferol (Vitamin D3) 5,000 unit PO DAILY #30 tablet 03/17/14 04/12/14 Unknown Rx [Vitamin D3] NIFEdipine*For Tocolysis only* 20 mg PO TID #180 capsule 03/17/14 04/12/14 04/11/14 21:30 Rx [PROCARDIA*For Tocolysis only*] Ferrous Sulfate [Feosol 325 MG tab] 325 mg PO TID #90 tablet 04/12/14 Unknown Rx Ibuprofen [Motrin 800 MG tab] 800 mg PO Q8H PRN #90 tablet 04/12/14 Unknown Rx NIFEdipine XL [Procardia Xl] 60 mg PO QDAY #30 tablet 04/12/14 Unknown Rx glipiZIDE [glipiZIDE XL] 5 mg PO DAILY #30 tab.er.24 04/12/14 Unknown Rx metFORMIN [Glucophage] 500 mg PO BID #60 tablet 04/12/14 Unknown Rx oxyCODONE /ACETAMINOPHEN [Percocet 1 tab PO Q6HR PRN #30 tablet 04/12/14 Unknown Rx 5/325 mg] Metoprolol [Lopressor] 12.5 mg PO BID #30 tablet 06/23/14 Unknown Rx Acetaminophen/Codeine [Tylenol #3] 1 tab PO Q6H PRN #20 tab 04/21/15 Unknown Rx Ibuprofen [Motrin 800 MG tab] 800 mg PO Q8HR PRN #30 tablet 04/21/15 Unknown Rx Penicillin Vk [Veetids TAB] 500 mg PO Q6HR #40 tablet 04/21/15 Unknown Rx Lispro Insulin [HumaLOG] See Protocol SQ QAC #10 ml 05/03/19 Unknown Rx lisinopriL [Zestril TAB] 20 mg PO QDAY #30 tablet 05/03/19 Unknown Rx Famotidine [Pepcid] 20 mg PO BID #60 tablet 12/03/20 Unknown Rx Meclizine [Antivert] 25 mg PO TID PRN #30 tab 12/03/20 Unknown Rx Ondansetron [Zofran Odt] 4 mg PO Q8HR PRN #20 tab.rapdis 12/03/20 Unknown Rx Metoclopramide [Reglan] 10 mg PO TID PRN #20 tab 12/24/20 Unknown Rx Mupirocin [Bactroban 2%] 1 applic TP BID #1 tube 10/06/21 Unknown Rx cephALEXin [Keflex] 500 mg PO BID 7 Days #14 cap 10/06/21 Unknown Rx ED Physical Exam - General Limitations: No Limitations General appearance: alert, in no apparent distress - Head Head exam: Present: atraumatic, normocephalic - Eye Eye exam: Present: normal appearance. Absent: conjunctival injection - Neck Neck exam: Present: normal inspection - Respiratory Respiratory exam: Present: normal lung sounds bilaterally. Absent: respiratory distress, wheezes, rales, rhonchi, stridor, chest wall tenderness - Cardiovascular Cardiovascular Exam: Present: tachycardia, normal heart sounds - GI/Abdominal GI/Abdominal exam: Present: soft, normal bowel sounds. Absent: distended, tenderness, guarding, rebound, rigid - Extremities Exam Extremities exam: Absent: normal inspection - Expanded Lower Extremity Exam Left Lower Leg exam: Present: normal inspection Ankle exam: Present: normal inspection Foot/Toe exam: Present: tenderness, erythema. Absent: normal inspection (2-3 blisters to the top of the foot noted to be draining clear white fluid. 2 open wound areas where blisters have burst and skin have sloughed off. No purulent drainage noted), abrasion, laceration, ecchymosis Neuro vascular tendon exam: Present: no vascular compromise. Absent: pulse deficit, abnormal cap refill, extremity cold to touch, pallor Gait: Positive: observed and normal Right Lower Leg exam: Present: normal inspection Ankle exam: Present: normal inspection Foot/Toe exam: Present: tenderness, swelling, erythema. Absent: normal inspection (Noted to have several blisters to the top of the feet and on the sides all noted to be draining clear fluid with erythema and edema of entire foot. No open wound noted, no purulent drainage noted.), ecchymosis, deformity, crepidus Neuro vascular tendon exam: Present: no vascular compromise. Absent: pulse deficit, abnormal cap refill, extremity cold to touch, pallor - Back Exam Back exam: Present: normal inspection - Neurological Exam Neurological exam: Present: alert, oriented X3 - Psychiatric Psychiatric exam: Present: normal affect, normal mood - Skin Skin exam: Present: warm, dry, intact, normal color ED Course Vital Signs 10/06/21 02:37 Temperature 98.4 F Pulse Rate 121 H Respiratory 18 Rate Blood Pressure 154/108 [Left] O2 Sat by Pulse 100 Oximetry ED Medical Decision Making - Medical Decision Making 35-year-old black female with a past medical history of diabetes presents to the emergency department for evaluation of bilateral foot blisters and wound. She states that she [place] the [place] and just sat there with her feet in the pool for a while, and when she got out and went home, she started to have pain and burning to her bilateral feet. She states that later she noticed that she had some blisters to the area with some draining clear white fluid. She states that she had minimal pain but blisters kept getting worse and some burst open and skin sloughed off remaining open sore so she decided to come to the emergency department for further evaluation. She denies fever. Wounds on foot consistent with second-degree price. Patient has history of diabetes, so she will be treated with 7-day course of Keflex along with Bactroban to apply to open wounds twice a day. Tdap was updated. She is advised to follow-up with her primary care provider or with wound care for further evaluation and management. She is advised to return to the emergency department immediately if she develops fever, purulent drainage, or any worsening or concerning symptoms. She verbalizes understanding of and agreement with plan of care. Critical care attestation.: If time is entered above; I have spent that time in minutes in the direct care of this critically ill patient, excluding procedure time. ED Disposition Clinical Impression: Second degree burn of foot Qualifiers: Encounter type: initial encounter Laterality: right Qualified Code(s): T25.221A - Burn of second degree of right foot, initial encounter Second degree burn of left foot Qualifiers: Encounter type: initial encounter Qualified Code(s): T25.222A - Burn of second degree of left foot, initial encounter Disposition: HOME / SELF CARE / HOMELESS Is pt being admited?: No Does the pt Need Aspirin: No Condition: Stable Instructions: Burn Care, Adult, [id number], VIS, Tetanus, Diphtheria, and Pertussis (Tdap) - CDC (07/13/2019), Wound Care, Adult Additional Instructions: Take medications as prescribed. Clean and dress wounds twice a day. Follow-up with wound care or primary care provider. Return to the emergency department immediately if you develop fever, purulent drainage, or any worsening symptoms. Prescriptions: Mupirocin [Bactroban 2%] 1 applic TP BID #1 tube cephALEXin [Keflex] 500 mg PO BID 7 Days #14 cap Referrals: PETER WELSH MD [Staff Physician] - 3-5 Days [facility] [Outside] - 3-5 Days Forms: Work/School Release Form(ED) Time of Disposition: 10:03
[2021-10-06 10:34] VITALS: BP 132/74
== END 2021-10-06 10:34 | disposition home or self-care (01) ==
LOC: ED 01:55
DX: T25.222A Burn of second degree of left foot, initial encounter (principal); T25.221A Burn of second degree of right foot, initial encounter; I10 Essential (primary) hypertension; E11.9 Type 2 diabetes mellitus without complications; Z98.890 Other specified postprocedural states; X08.8XXA Exposure to other specified smoke, fire and flames, initial encounter; Y93.89 Activity, other specified; Y92.89 Other specified places as the place of occurrence of the external cause; Y99.9 Unspecified external cause status
CPT/HCPCS: 90471; 90715; 99282

== ENCOUNTER 2021-10-24 12:26 | Emergency (ER) | payer OTHER ==
[2021-10-24 14:16] LABS: Basophils # (Auto) 0.1 K/mm3 (0.0-0.1); Basophils % (Auto) 0.4 % (0.0-1.8); Eosinophils # (Auto) 0.2 K/mm3 (0.0-0.4); Eosinophils % (Auto) 1.2 % (0.0-4.3); Hematocrit 32.8 % (30.3-42.9); Hemoglobin 11.5 gm/dl (10.1-14.3); Lymphocytes # (Auto) 2.5 K/mm3 (1.2-5.4); Lymphocytes % (Auto) 18.8 % (13.4-35.0); Mean Corpuscular HGB Conc 35 % (30-34); Mean Corpuscular Volume 83 fl (79-97); Monocytes # (Auto) 0.6 K/mm3 (0.0-0.8); Monocytes % (Auto) 4.9 % (0.0-7.3); Platelet Count 378 K/mm3 (140-440); Red Blood Count 3.96 M/mm3 (3.65-5.03)
[2021-10-24 14:36] LABS: Albumin 3.4 g/dL (3.9-5); BUN/Creatinine Ratio 9; Blood Urea Nitrogen 13 mg/dL (7-17); Calcium 9.3 mg/dL (8.4-10.2); Hemolysis Index 0
[2021-10-24 15:16] LABS: Alanine Aminotransferase < 5 units/L (7-56)
[2021-10-24 16:05] LABS: Bilirubin,Urine NEG (Negative); Blood,Urine MOD (Negative); Color,Urine Yellow (Yellow); Urobilinogen,Urine < 2.0 mg/dL (<2.0)
[2021-10-24 16:25] LABS: Bacteria,Urine 1+ /HPF (Negative)
--- NOTE | 2021-10-24 18:30 | XRay Report ---
CHEST 2 VIEWS INDICATION / CLINICAL INFORMATION: cp. COMPARISON: 12/02/2020 FINDINGS: SUPPORT DEVICES: None. HEART / MEDIASTINUM: No significant abnormality. LUNGS / PLEURA: No significant pulmonary or pleural abnormality. No pneumothorax. ADDITIONAL FINDINGS: No significant additional findings. IMPRESSION: 1. No acute findings. Signer Name: Michele Umanzor MD Signed: 10/24/2021 6:25 PM Workstation Name: [id number]
[2021-10-25] MEDS ORDERED: POTASSIUM CHLORIDE ER 20 MEQ TAB PO ONE (08:37)
[2021-10-25] MEDS ORDERED: ONDANSETRON 4 MG/2 ML INJ IV ONE (08:38)
[2021-10-25] MEDS ORDERED: MORPHINE 4 MG/1 ML INJ IV ONE (08:38)
[2021-10-25] MEDS ORDERED: INSULIN REGULAR, HUMAN 100 UNITS/1 ML IV ONE ×3 (08:38→14:47)
[2021-10-25] MEDS ORDERED: SODIUM CHLORIDE 0.9% 1000 ML 1,000 ML IV ONE ×3 (08:38→14:44)
[2021-10-25] MEDS ORDERED: SULFAMETHOXAZOLE/TRIMETHOPRIM 800/160MG DS TAB PO ONE (08:39)
[2021-10-25] MEDS ORDERED: FLUCONAZOLE 200 MG TAB PO ONE (08:40)
--- NOTE | 2021-10-25 09:39 | Emergency Department Report ---
<BONNY [place] - Last Filed: 10/25/21 14:05> ED Extremity Problem HPI - General Chief complaint: Hyperglycemia Stated complaint: INFECTION IN FOOT/DIABETES Time Seen by Provider: 10/25/21 07:49 Source: patient Mode of arrival: Ambulatory Limitations: No Limitations - History of Present Illness Initial comments: 35-year-old female with a past medical history of obesity, diabetes (insulin and pills), and hypertension presents to the hospital after being sent by her doctor for reevaluation of burn injury to bilateral feet. Patient has a burning stinging pain to bilateral feet rated 8/10 intensity worse with palpation. Keturah lowery was seen here October 06 for foot blisters and sores that resulted after soaking her feet. She was treated with Bactroban and Keflex. She follow-up with her doctor yesterday and was advised to come to the ER due to possible infection. Patient most of the blisters have resolved and she is only seeing clear drainage from residual blisters without mild odorous purulent discharge. She denies fever. Patient has her first wound care visit scheduled for today October 25 at 10 AM and will likely missed his visit due to her presentation to the ED. Patient has been in the ED for almost 24 hours and had labs drawn yesterday afternoon revealing hyperglycemia without signs of DKA and mild hypokalemia. Patient states she did not have her evening dose of long-acting insulin 30 units in her last diabetes medication was taken yesterday morning. Patient states that her primary care doctor also prescribed an additional insulin medication for her to begin taking. Patient received tetanus during her initial ED visit Severity scale (0 -10): 8 - Related Data Home Medications Medication Instructions Recorded Confirmed Last Taken Aspirin [Baby Aspirin] 81 mg PO DAILY 02/11/13 04/12/14 04/11/14 81 mg Ferrous Sulfate [Ferrous Sulfate 300 mg PO DAILY 03/11/14 04/12/14 03/11/14 11:00 Oral Liq 300 Mg/5 Ml] Insulin NPH, Human [NovoLIN N] 10 units SC QPM 03/11/14 04/12/14 04/11/14 Insulin NPH, Human [NovoLIN N] 24 units SC QAM 03/11/14 04/12/14 04/11/14 Insulin Regular, Human [HumuLIN R] 12 units SC QAM 03/11/14 04/12/14 04/11/14 08:30 labetaloL [Normodyne] 400 mg PO BID 03/11/14 04/12/14 04/11/14 21:30 Previous Rx's Medication Instructions Recorded Last Taken Type Docusate Sodium [Colace CAP] 100 mg PO Q12H PRN #60 capsule 03/14/14 04/03/14 Rx Ferrous Sulfate [Feosol 325 MG tab] 325 mg PO TID #90 tablet 03/14/14 04/11/14 Rx labetaloL [Labetalol 200mg TAB] 200 mg PO BID #60 tablet 03/14/14 04/11/14 21:30 Rx Cholecalciferol (Vitamin D3) 5,000 unit PO DAILY #30 tablet 03/17/14 Unknown Rx [Vitamin D3] NIFEdipine*For Tocolysis only* 20 mg PO TID #180 capsule 03/17/14 04/11/14 21:30 Rx [PROCARDIA*For Tocolysis only*] Ferrous Sulfate [Feosol 325 MG tab] 325 mg PO TID #90 tablet 04/12/14 Unknown Rx Ibuprofen [Motrin 800 MG tab] 800 mg PO Q8H PRN #90 tablet 04/12/14 Unknown Rx NIFEdipine XL [Procardia Xl] 60 mg PO QDAY #30 tablet 04/12/14 Unknown Rx glipiZIDE [glipiZIDE XL] 5 mg PO DAILY #30 tab.er.24 04/12/14 Unknown Rx metFORMIN [Glucophage] 500 mg PO BID #60 tablet 04/12/14 Unknown Rx oxyCODONE /ACETAMINOPHEN [Percocet 1 tab PO Q6HR PRN #30 tablet 04/12/14 Unknown Rx 5/325 mg] Metoprolol [Lopressor] 12.5 mg PO BID #30 tablet 06/23/14 Unknown Rx Acetaminophen/Codeine [Tylenol #3] 1 tab PO Q6H PRN #20 tab 04/21/15 Unknown Rx Ibuprofen [Motrin 800 MG tab] 800 mg PO Q8HR PRN #30 tablet 04/21/15 Unknown Rx Penicillin Vk [Veetids TAB] 500 mg PO Q6HR #40 tablet 04/21/15 Unknown Rx Lispro Insulin [HumaLOG] See Protocol SQ QAC #10 ml 05/03/19 Unknown Rx lisinopriL [Zestril TAB] 20 mg PO QDAY #30 tablet 05/03/19 Unknown Rx Famotidine [Pepcid] 20 mg PO BID #60 tablet 12/03/20 Unknown Rx Meclizine [Antivert] 25 mg PO TID PRN #30 tab 12/03/20 Unknown Rx Ondansetron [Zofran Odt] 4 mg PO Q8HR PRN #20 tab.rapdis 12/03/20 Unknown Rx Metoclopramide [Reglan] 10 mg PO TID PRN #20 tab 12/24/20 Unknown Rx Mupirocin [Bactroban 2%] 1 applic TP BID #1 tube 10/06/21 Unknown Rx cephALEXin [Keflex] 500 mg PO BID 7 Days #14 cap 10/06/21 Unknown Rx Silver Sulfadiazine [Silvadene] 1 applic TP DAILY 14 Days #1000 10/25/21 Unknown Rx gram Sulfamethoxazole/Trimethoprim 1 each PO BID #14 tab 10/25/21 Unknown Rx [Bactrim DS TAB] Allergies Allergy/AdvReac Type Severity Reaction Status Date / Time No Known Allergies Allergy Verified 10/06/21 02:40 ED Review of Systems Comment: All other systems reviewed and negative ED Past Medical Hx - Past Medical History Hx Hypertension: Yes Hx Congestive Heart Failure: No Hx Diabetes: Yes Hx Deep Vein Thrombosis: No Hx Renal Disease: No Hx Sickle Cell Disease: No Hx Seizures: No Hx Asthma: No Hx COPD: No Hx HIV: No - Surgical History Additional Surgical History: - Social History Smoking Status: Never Smoker Substance Use Type: None - Medications Home Medications: Home Medications Medication Instructions Recorded Confirmed Last Taken Type Aspirin [Baby Aspirin] 81 mg PO DAILY 02/11/13 04/12/14 04/11/14 History 81 mg Ferrous Sulfate [Ferrous Sulfate 300 mg PO DAILY 03/11/14 04/12/14 03/11/14 11:00 History Oral Liq 300 Mg/5 Ml] Insulin NPH, Human [NovoLIN N] 10 units SC QPM 03/11/14 04/12/14 04/11/14 Hi story Insulin NPH, Human [NovoLIN N] 24 units SC QAM 03/11/14 04/12/14 04/11/14 History Insulin Regular, Human [HumuLIN R] 12 units SC QAM 03/11/14 04/12/14 04/11/14 08:30 History labetaloL [Normodyne] 400 mg PO BID 03/11/14 04/12/14 04/11/14 21:30 History Docusate Sodium [Colace CAP] 100 mg PO Q12H PRN #60 capsule 03/14/14 04/12/14 04/03/14 Rx Ferrous Sulfate [Feosol 325 MG tab] 325 mg PO TID #90 tablet 03/14/14 04/12/14 04/11/14 Rx labetaloL [Labetalol 200mg TAB] 200 mg PO BID #60 tablet 03/14/14 04/12/14 04/11/14 21:30 Rx Cholecalciferol (Vitamin D3) 5,000 unit PO DAILY #30 tablet 03/17/14 04/12/14 Unknown Rx [Vitamin D3] NIFEdipine*For Tocolysis only* 20 mg PO TID #180 capsule 03/17/14 04/12/14 04/11/14 21:30 Rx [PROCARDIA*For Tocolysis only*] Ferrous Sulfate [Feosol 325 MG tab] 325 mg PO TID #90 tablet 04/12/14 Unknown Rx Ibuprofen [Motrin 800 MG tab] 800 mg PO Q8H PRN #90 tablet 04/12/14 Unknown Rx NIFEdipine XL [Procardia Xl] 60 mg PO QDAY #30 tablet 04/12/14 Unknown Rx glipiZIDE [glipiZIDE XL] 5 mg PO DAILY #30 tab.er.24 04/12/14 Unknown Rx metFORMIN [Glucophage] 500 mg PO BID #60 tablet 04/12/14 Unknown Rx oxyCODONE /ACETAMINOPHEN [Percocet 1 tab PO Q6HR PRN #30 tablet 04/12/14 Unknown Rx 5/325 mg] Metoprolol [Lopressor] 12.5 mg PO BID #30 tablet 06/23/14 Unknown Rx Acetaminophen/Codeine [Tylenol #3] 1 tab PO Q6H PRN #20 tab 04/21/15 Unknown Rx Ibuprofen [Motrin 800 MG tab] 800 mg PO Q8HR PRN #30 tablet 04/21/15 Unknown Rx Penicillin Vk [Veetids TAB] 500 mg PO Q6HR #40 tablet 04/21/15 Unknown Rx Lispro Insulin [HumaLOG] See Protocol SQ QAC #10 ml 05/03/19 Unknown Rx lisinopriL [Zestril TAB] 20 mg PO QDAY #30 tablet 05/03/19 Unknown Rx Famotidine [Pepcid] 20 mg PO BID #60 tablet 12/03/20 Unknown Rx Meclizine [Antivert] 25 mg PO TID PRN #30 tab 12/03/20 Unknown Rx Ondansetron [Zofran Odt] 4 mg PO Q8HR PRN #20 tab.rapdis 12/03/20 Unknown Rx Metoclopramide [Reglan] 10 mg PO TID PRN #20 tab 12/24/20 Unknown Rx Mupirocin [Bactroban 2%] 1 applic TP BID #1 tube 10/06/21 Unknown Rx cephALEXin [Keflex] 500 mg PO BID 7 Days #14 cap 10/06/21 Unknown Rx Silver Sulfadiazine [Silvadene] 1 applic TP DAILY 14 Days #1000 10/25/21 Unknown Rx gram Sulfamethoxazole/Trimethoprim 1 each PO BID #14 tab 10/25/21 Unknown Rx [Bactrim DS TAB] ED Physical Exam - General Limitations: No Limitations - Other Other exam information: General: No acute distress Head: Atraumatic Eyes: normal appearance ENT: Moist mucous membranes Neck: Normal appearance, no midline tenderness Chest: Clear to auscultation bilaterally CV: Regular rhythm mild tachycardia Abdomen: Soft, normal bowel sounds, nontender, nondistended, no rebound or guarding Back: Normal inspection Extremity: Normal inspection, full range of motion Neuro: Alert O x 3, no facial asymmetry, speech clear, no gross motor sensory deficit Psych: Appropriate behavior Skin: Patient has significant second-degree price to bilateral feet on the dorsal surface. Residual blisters to the right foot noted with clear drainage. Mild redness to medial left foot without significant warmth. Full range of motion of toes and feet. ED Course - Reevaluation(s) Reevaluation #1: 10/25/21 14:45 glucose 305, pt resting. no complaints. - Consultations Consultation #1: 10/25/21 11:15 Dr. Renato Cao was in the ER. He is a general surgeon who was in wound care clinic today and scheduled to see the patient. He was gracious to come to the bedside to evaluate patient's wounds. Recommends daily Silvadene and to wash wounds daily with water. He also states patient may continue hydrogen peroxide use. He was informed patient be placed on Bactrim for UTI as well. Recommends that patient reschedule follow-up in wound care clinic for next week. ED Medical Decision Making - Lab Data Result diagrams: 10/24/21 13:21 10/24/21 13:21 Lab Results 10/24/21 10/24/21 10/24/21 Range/Units 13:21 13:21 13:21 WBC 13.2 H (4.5-11.0) K/mm3 RBC 3.96 (3.65-5.03) M/mm3 Hgb 11.5 (10.1-14.3) gm/dl Hct 32.8 (30.3-42.9) % MCV 83 (79-97) fl MCH 29 (28-32) pg MCHC 35 H (30-34) % RDW 13.0 L (13.2-15.2) % Plt Count 378 (140-440) K/mm3 Lymph % (Auto) 18.8 (13.4-35.0) % [place] % (Auto) 4.9 (0.0-7.3) % Eos % (Auto) 1.2 (0.0-4.3) % Baso % (Auto) 0.4 (0.0-1.8) % Lymph # (Auto) 2.5 (1.2-5.4) K/mm3 [place] # (Auto) 0.6 (0.0-0.8) K/mm3 Eos # (Auto) 0.2 (0.0-0.4) K/mm3 Baso # (Auto) 0.1 (0.0-0.1) K/mm3 Seg Neutrophils % 74.7 H (40.0-70.0) % Seg Neutrophils # 9.8 H (1.8-7.7) K/mm3 VBG pH 7.357 (7.320-7.420) Sodium 135 L (137-145) mmol/L Potassium 3.5 L (3.6-5.0) mmol/L Chloride 96.2 L (98-107) mmol/L Carbon Dioxide 24 (22-30) mmol/L Anion Gap 18 mmol/L BUN 13 (7-17) mg/dL Creatinine 1.4 H (0.6-1.2) mg/dL Estimated GFR 51 ml/min BUN/Creatinine Ratio 9 % Glucose 521 H* (65-100) mg/dL POC Glucose (70-105) mg/dL Calcium 9.3 (8.4-10.2) mg/dL Total Bilirubin 0.30 (0.1-1.2) mg/dL AST 7 (5-40) units/L ALT < 5 L (7-56) units/L Alkaline Phosphatase 177 H (35-129) units/L Total Protein 8.3 H (6.3-8.2) g/dL Albumin 3.4 L (3.9-5) g/dL Albumin/Globulin Ratio 0.7 % Urine Color (Yellow) Urine Turbidity (Clear) Urine pH (5.0-7.0) Ur Specific [place] (1.003-1.030) Urine Protein (Negative) mg/dL Urine Glucose (UA) (Negative) mg/dL Urine Ketones (Negative) mg/dL Urine Blood (Negative) Urine Nitrite (Negative) Urine Bilirubin (Negative) Urine Urobilinogen (<2.0) mg/dL Ur Leukocyte Esterase (Negative) Urine WBC (Auto) (0.0-6.0) /HPF Urine RBC (Auto) (0.0-6.0) /HPF U Epithel Cells (Auto) (0-13.0) /HPF Urine Bacteria (Auto) (Negative) /HPF Urine Yeast (Budding) /HPF 10/24/21 10/25/21 10/25/21 Range/Units Unknown 11:12 13:29 WBC (4.5-11.0) K/mm3 RBC (3.65-5.03) M/mm3 Hgb (10.1-14.3) gm/dl Hct (30.3-42.9) % MCV (79-97) fl MCH (28-32) pg MCHC (30-34) % RDW (13.2-15.2) % Plt Count (140-440) K/mm3 Lymph % (Auto) (13.4-35.0) % [place] % (Auto) (0.0-7.3) % Eos % (Auto) (0.0-4.3) % Baso % (Auto) (0.0-1.8) % Lymph # (Auto) (1.2-5.4) K/mm3 [place] # (Auto) (0.0-0.8) K/mm3 Eos # (Auto) (0.0-0.4) K/mm3 Baso # (Auto) (0.0-0.1) K/mm3 Seg Neutrophils % (40.0-70.0) % Seg Neutrophils # (1.8-7.7) K/mm3 VBG pH (7.320-7.420) Sodium (137-145) mmol/L Potassium (3.6-5.0) mmol/L Chloride (98-107) mmol/L Carbon Dioxide (22-30) mmol/L Anion Gap mmol/L BUN (7-17) mg/dL Creatinine (0.6-1.2) mg/dL Estimated GFR ml/min BUN/Creatinine Ratio % Glucose (65-100) mg/dL POC Glucose 376 H 375 H (70-105) mg/dL Calcium (8.4-10.2) mg/dL Total Bilirubin (0.1-1.2) mg/dL AST (5-40) units/L ALT (7-56) units/L Alkaline Phosphatase (35-129) units/L Total Protein (6.3-8.2) g/dL Albumin (3.9-5) g/dL Albumin/Globulin Ratio % Urine Color Yellow (Yellow) Urine Turbidity Slightly-cloudy (Clear) Urine pH 5.0 (5.0-7.0) Ur Specific [place] 1.023 (1.003-1.030) Urine Protein 30 mg/dl (Negative) mg/dL Urine Glucose (UA) >=500 (Negative) mg/dL Urine Ketones Neg (Negative) mg/dL Urine Blood Mod (Negative) Urine Nitrite Neg (Negative) Urine Bilirubin Neg (Negative) Urine Urobilinogen < 2.0 (<2.0) mg/dL Ur Leukocyte Esterase Mod (Negative) Urine WBC (Auto) 11.0 H (0.0-6.0) /HPF Urine RBC (Auto) 5.0 (0.0-6.0) /HPF U Epithel Cells (Auto) 29.0 H (0-13.0) /HPF Urine Bacteria (Auto) 1+ (Negative) /HPF Urine Yeast (Budding) 3+ /HPF - Medical Decision Making 35-year-old female presents to the hospital with complaints of possible bilateral foot wound infection from recent second-degree burn. Patient was sent by her primary care doctor to the ER for evaluation. Patient was noted to be hyperglycemic without signs of DKA. Patient did not take her medication during extended ED stay. Patient was treated with IV insulin and IV fluids. Initial Silvadene dressing ordered to be placed by nurse. Patient is required multiple dose of insulin and IV fluids for adequate glucose reduction. Plan to discharge once glucose is in the low 200s range. She states that her primary care doctor is already added an additional insulin to help better manage her blood glucose. Heart rate at rest 105. IV fluids still infusing. Patient did receive p.o. potassium 40 mill equivalents for mild hypokalemia Patient be discharged on Bactrim for UTI versus contaminated sample with secondary MRSA cellulitis coverage. Outpatient follow-up wound care clinic and PMD clinic advised Patient will be signed out to my colleague Dr. Bailon to reassess and discharge after improvement of glucose level and wound dressing to be placed by RN prior to discharge Critical Care Time: No ED Disposition Clinical Impression: Hyperglycemia due to diabetes mellitus, UTI (urinary tract infection) Second degree burn of foot Qualifiers: Encounter type: subsequent encounter Disposition: 01 HOME / SELF CARE / HOMELESS Is pt being admited?: No Condition: Stable Instructions: Urinary Tract Infection, Adult, [id number], Hyperglycemia, [id number], Burn Care, Adult, Diabetes Mellitus Type 2 in Adults (ED) Additional Instructions: Take the medication as prescribed. Follow-up with your doctor or doctor/clinic provided. Return if symptoms worsen as indicated by your discharge instructions. Prescriptions: Sulfamethoxazole/Trimethoprim [Bactrim DS TAB] 1 each PO BID #14 tab Silver Sulfadiazine [Silvadene] 1 applic TP DAILY 14 Days #1000 gram Referrals: PETER WELSH MD [Primary Care Provider] - 3-5 Days [facility] [Outside] - 3-5 Days <FRITZ BAILON - Last Filed: 10/25/21 23:08> ED Review of Systems ROS: Stated complaint: INFECTION IN FOOT/DIABETES Other details as noted in HPI ED Course Vital Signs 10/24/21 10/25/21 10/25/21 12:51 09:14 16:21 Temperature 98.0 F 98.6 F Pulse Rate 121 H 113 H Respiratory 18 22 Rate Blood Pressure 114/78 Blood Pressure 143/93 150/97 [Left] O2 Sat by Pulse 98 100 Oximetry - Reevaluation(s) Reevaluation #1: 10/25/21 16:55 Glucose is improved. Heart rate 105 bpm. Patient on cell phone sitting in stretcher in no acute distress. Discharged with outpatient follow-up ED Medical Decision Making - Lab Data Result diagrams: 10/24/21 13:21 10/24/21 13:21 Critical care attestation.: If time is entered above; I have spent that time in minutes in the direct care of this critically ill patient, excluding procedure time. ED Disposition Is pt being admited?: No Does the pt Need Aspirin: No
[2021-10-25 16:21] VITALS: BP 150/97
== END 2021-10-25 17:04 | disposition home or self-care (01) ==
LOC: ED 12:26
DX: S90.829D Blister (nonthermal), unspecified foot, subsequent encounter (principal); E11.65 Type 2 diabetes mellitus with hyperglycemia; N39.0 Urinary tract infection, site not specified; I10 Essential (primary) hypertension; E11.9 Type 2 diabetes mellitus without complications; Z79.899 Other long term (current) drug therapy; X58.XXXD Exposure to other specified factors, subsequent encounter
CPT/HCPCS: 16000; 36415; 71046; 80053; 81001; 82805; 82962; 85025; 87086; 96361; 96374; 96375; 96376; 99284; J2270; J2405; J7030; Q9967; J1815

== ENCOUNTER 2021-11-08 13:20 | Outpatient (CLI) | payer OTHER ==
[2021-11-08] MEDS ORDERED: LIDOCAINE (4%) 40 MG/ML TOPICAL SOLN 50 ML BOTTLE TP ONE (14:19)
== END 2021-11-08 13:21 | disposition home or self-care (01) ==
LOC: WOUND 13:20
PROVIDERS: ATTEND Surgery
DX: T25.312A Burn of third degree of left ankle, initial encounter (principal); T25.322A Burn of third degree of left foot, initial encounter; T25.321A Burn of third degree of right foot, initial encounter; T31.0 Burns involving less than 10% of body surface; I10 Essential (primary) hypertension; E11.9 Type 2 diabetes mellitus without complications; Z79.84 Long term (current) use of oral hypoglycemic drugs; Z87.891 Personal history of nicotine dependence; X08.8XXA Exposure to other specified smoke, fire and flames, initial encounter; Y93.89 Activity, other specified; Y92.89 Other specified places as the place of occurrence of the external cause; Y99.8 Other external cause status
CPT/HCPCS: 99215; G0463

== ENCOUNTER 2022-01-03 13:49 | Inpatient (IN) | payer OTHER ==
[2022-01-03 14:36] LABS: Basophils # (Auto) 0.1 K/mm3 (0.0-0.1); Basophils % (Auto) 1.1 % (0.0-1.8); Eosinophils # (Auto) 0.2 K/mm3 (0.0-0.4); Eosinophils % (Auto) 1.4 % (0.0-4.3); Hematocrit 27.6 % (30.3-42.9); Hemoglobin 9.1 gm/dl (10.1-14.3); Lymphocytes # (Auto) 2.3 K/mm3 (1.2-5.4); Lymphocytes % (Auto) 18.6 % (13.4-35.0); Mean Corpuscular HGB Conc 33 % (30-34); Mean Corpuscular Volume 83 fl (79-97); Monocytes # (Auto) 0.8 K/mm3 (0.0-0.8); Monocytes % (Auto) 6.3 % (0.0-7.3); Platelet Count 412 K/mm3 (140-440); Red Blood Count 3.35 M/mm3 (3.65-5.03); Red Cell Distribution Width 15.2 % (13.2-15.2)
--- NOTE | 2022-01-03 14:38 | Cat Scan Report ---
CT head/brain wo con INDICATION: neuro deficits. TECHNIQUE: CT head. All CT scans at this location are performed using CT dose reduction for ALARA by means of automated exposure control. COMPARISON: December 02, 2020 FINDINGS: Intracranial: There are is mild hypoattenuation seen involving the left parietal lobe and centrum suly iovale consistent with an age-indeterminate infarction, for example on image 49 of series 601. Small area of encephalomalacia seen left putamen consistent with remote infarction. There is small. Starks-wh ite matter differentiation is maintained. No intracranial hemorrhage. No extra axial collection. No h ydrocephalus. No herniation. Sinuses: Paranasal sinuses and mastoid air cells are essentially clear. Orbits: Globes are intact. Calvarium: No acute fracture. IMPRESSION: 1. Small areas of hypoattenuation in the left parietal lobe and centrum semiovale consistent with ag e indeterminate but possibly acute to subacute infarction. Correlate clinically. 2. Remote left putaminal infarction. Signer Name: Ky Park MD Signed: 01/03/2022 2:34 PM Workstation Name: [id number]
--- NOTE | 2022-01-03 14:45 | Emergency Department Report ---
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 Patient denies headache, dizziness, chest pain, or any other symptoms. Patient denies previous similar. Patient states that she was able to move her upper and lower extremity after being discharged from her procedure, yesterday, however at approximately 6 PM, she noticed that she was unable to move her right arm or right leg. Patient is right-hand dominant. Patient denies any alleviating or aggravating factors, but does report that she feels as if the weakness in her right arm is improving, slightly. - Related Data Home Medications: Home Medications Medication Instructions Recorded Confirmed Last Taken Aspirin [Baby Aspirin] 81 mg PO DAILY 02/11/13 04/12/14 04/11/14 81 mg Ferrous Sulfate [Ferrous Sulfate 300 mg PO DAILY 03/11/14 04/12/14 03/11/14 11:00 Oral Liq 300 Mg/5 Ml] Insulin NPH, Human [NovoLIN N] 10 units SC QPM 03/11/14 04/12/14 04/11/14 Insulin NPH, Human [NovoLIN N] 24 units SC QAM 03/11/14 04/12/14 04/11/14 Insulin Regular, Human [HumuLIN R] 12 units SC QAM 03/11/14 04/12/14 04/11/14 08:30 labetaloL [Normodyne] 400 mg PO BID 03/11/14 04/12/14 04/11/14 21:30 Previous Rx's Medication Instructions Recorded Last Taken Type Docusate Sodium [Colace CAP] 100 mg PO Q12H PRN #60 capsule 03/14/14 04/03/14 Rx Ferrous Sulfate [Feosol 325 MG tab] 325 mg PO TID #90 tablet 03/14/14 04/11/14 Rx labetaloL [Labetalol 200mg TAB] 200 mg PO BID #60 tablet 03/14/14 04/11/14 21:30 Rx Cholecalciferol (Vitamin D3) 5,000 unit PO DAILY #30 tablet 03/17/14 Unknown Rx [Vitamin D3] NIFEdipine*For Tocolysis only* 20 mg PO TID #180 capsule 03/17/14 04/11/14 21:30 Rx [PROCARDIA*For Tocolysis only*] Ferrous Sulfate [Feosol 325 MG tab] 325 mg PO TID #90 tablet 04/12/14 Unknown Rx Ibuprofen [Motrin 800 MG tab] 800 mg PO Q8H PRN #90 tablet 04/12/14 Unknown Rx NIFEdipine XL [Procardia Xl] 60 mg PO QDAY #30 tablet 04/12/14 Unknown Rx glipiZIDE [glipiZIDE XL] 5 mg PO DAILY #30 tab.er.24 04/12/14 Unknown Rx metFORMIN [Glucophage] 500 mg PO BID #60 tablet 04/12/14 Unknown Rx oxyCODONE /ACETAMINOPHEN [Percocet 1 tab PO Q6HR PRN #30 tablet 04/12/14 Unknown Rx 5/325 mg] Metoprolol [Lopressor] 12.5 mg PO BID #30 tablet 06/23/14 Unknown Rx Acetaminophen/Codeine [Tylenol #3] 1 tab PO Q6H PRN #20 tab 04/21/15 Unknown Rx Ibuprofen [Motrin 800 MG tab] 800 mg PO Q8HR PRN #30 tablet 04/21/15 Unknown Rx Penicillin Vk [Veetids TAB] 500 mg PO Q6HR #40 tablet 04/21/15 Unknown Rx Lispro Insulin [HumaLOG] See Protocol SQ QAC #10 ml 05/03/19 Unknown Rx lisinopriL [Zestril TAB] 20 mg PO QDAY #30 tablet 05/03/19 Unknown Rx Famotidine [Pepcid] 20 mg PO BID #60 tablet 12/03/20 Unknown Rx Meclizine [Antivert] 25 mg PO TID PRN #30 tab 12/03/20 Unknown Rx Ondansetron [Zofran Odt] 4 mg PO Q8HR PRN #20 tab.rapdis 12/03/20 Unknown Rx Metoclopramide [Reglan] 10 mg PO TID PRN #20 tab 12/24/20 Unknown Rx Mupirocin [Bactroban 2%] 1 applic TP BID #1 tube 10/06/21 Unknown Rx cephALEXin [Keflex] 500 mg PO BID 7 Days #14 cap 10/06/21 Unknown Rx Silver Sulfadiazine [Silvadene] 1 applic TP DAILY 14 Days #1000 10/25/21 Unknown Rx gram Sulfamethoxazole/Trimethoprim 1 each PO BID #14 tab 10/25/21 Unknown Rx [Bactrim DS TAB] Allergies/Adverse Reactions: Allergies Allergy/AdvReac Type Severity Reaction Status Date / Time No Known Allergies Allergy Verified 10/06/21 02:40 ED Review of Systems ROS: Stated complaint: NUMBNESS TO RT SIDE Other details as noted in HPI Comment: All other systems reviewed and negative Constitutional: denies: chills, fever Eyes: denies: eye pain, eye discharge, vision change ENT: denies: ear pain, throat pain Respiratory: denies: cough, shortness of breath, wheezing Cardiovascular: denies: chest pain, palpitations Endocrine: no symptoms reported Gastrointestinal: denies: abdominal pain, nausea, diarrhea Genitourinary: denies: urgency, dysuria, discharge Musculoskeletal: other (Weakness of right upper and right lower extremity). denies: back pain, joint swelling, arthralgia Skin: denies: rash, lesions Neurological: weakness (Right upper and right lower extremity). denies: headache, paresthesias Psychiatric: denies: anxiety, depression Hematological/Lymphatic: denies: easy bleeding, easy bruising ED Past Medical Hx - Past Medical History Hx Hypertension: Yes Hx Congestive Heart Failure: No Hx Diabetes: Yes Hx Deep Vein Thrombosis: No Hx Renal Disease: No Hx Sickle Cell Disease: No Hx Seizures: No Hx Asthma: No Hx COPD: No Hx HIV: No - Surgical History Additional Surgical History: - Social History Smoking Status: Never Smoker Substance Use Type: None - Medications Home Medications: Home Medications Medication Instructions Recorded Confirmed Last Taken Type Aspirin [Baby Aspirin] 81 mg PO DAILY 02/11/13 04/12/14 04/11/14 History 81 mg Ferrous Sulfate [Ferrous Sulfate 300 mg PO DAILY 03/11/14 04/12/14 03/11/14 11:00 History Oral Liq 300 Mg/5 Ml] Insulin NPH, Human [NovoLIN N] 10 units SC QPM 03/11/14 04/12/14 04/11/14 History Insulin NPH, Human [NovoLIN N] 24 units SC QAM 03/11/14 04/12/14 04/11/14 History Insulin Regular, Human [HumuLIN R] 12 units SC QAM 03/11/14 04/12/14 04/11/14 08:30 History labetaloL [Normodyne] 400 mg PO BID 03/11/14 04/12/14 04/11/14 21:30 History Docusate Sodium [Colace CAP] 100 mg PO Q12H PRN #60 capsule 03/14/14 04/12/14 04/03/14 Rx Ferrous Sulfate [Feosol 325 MG tab] 325 mg PO TID #90 tablet 03/14/14 04/12/14 04/11/14 Rx labetaloL [Labetalol 200mg TAB] 200 mg PO BID #60 tablet 03/14/14 04/12/14 04/11/14 21:30 Rx Cholecalciferol (Vitamin D3) 5,000 unit PO DAILY #30 tablet 03/17/14 04/12/14 Unknown Rx [Vitamin D3] NIFEdipine*For Tocolysis only* 20 mg PO TID #180 capsule 03/17/14 04/12/14 04/11/14 21:30 Rx [PROCARDIA*For Tocolysis only*] Ferrous Sulfate [Feosol 325 MG tab] 325 mg PO TID #90 tablet 04/12/14 Unknown Rx Ibuprofen [Motrin 800 MG tab] 800 mg PO Q8H PRN #90 tablet 04/12/14 Unknown Rx NIFEdipine XL [Procardia Xl] 60 mg PO QDAY #30 tablet 04/12/14 Unknown Rx glipiZIDE [glipiZIDE XL] 5 mg PO DAILY #30 tab.er.24 04/12/14 Unknown Rx metFORMIN [Glucophage] 500 mg PO BID #60 tablet 04/12/14 Unknown Rx oxyCODONE /ACETAMINOPHEN [Percocet 1 tab PO Q6HR PRN #30 tablet 04/12/14 Unknown Rx 5/325 mg] Metoprolol [Lopressor] 12.5 mg PO BID #30 tablet 06/23/14 Unknown Rx Acetaminophen/Codeine [Tylenol #3] 1 tab PO Q6H PRN #20 tab 04/21/15 Unknown Rx Ibuprofen [Motrin 800 MG tab] 800 mg PO Q8HR PRN #30 tablet 01/09/16 Unknown Rx Penicillin Vk [Veetids TAB] 500 mg PO Q6HR #40 tablet 04/21/15 Unknown Rx Lispro Insulin [HumaLOG] See Protocol SQ QAC #10 ml 05/03/19 Unknown Rx lisinopriL [Zestril TAB] 20 mg PO QDAY #30 tablet 05/03/19 Unknown Rx Famotidine [Pepcid] 20 mg PO BID #60 tablet 12/03/20 Unknown Rx Meclizine [Antivert] 25 mg PO TID PRN #30 tab 12/03/20 Unknown Rx Ondansetron [Zofran Odt] 4 mg PO Q8HR PRN #20 tab.rapdis 12/03/20 Unknown Rx Metoclopramide [Reglan] 10 mg PO TID PRN #20 tab 12/24/20 Unknown Rx Mupirocin [Bactroban 2%] 1 applic TP BID #1 tube 10/06/21 Unknown Rx cephALEXin [Keflex] 500 mg PO BID 7 Days #14 cap 10/06/21 Unknown Rx Silver Sulfadiazine [Silvadene] 1 applic TP DAILY 14 Days #1000 10/25/21 Unknown Rx gram Sulfamethoxazole/Trimethoprim 1 each PO BID #14 tab 10/25/21 Unknown Rx [Bactrim DS TAB] ED Neuro Physical Exam - General Limitations: Physical Limitation General appearance: alert, in no apparent distress Suspected Stroke: Yes - Head Head exam: Present: atraumatic, normocephalic - Eye Eye exam: Present: normal appearance, PERRL, EOMI Pupils: Present: normal accommodation - ENT ENT exam: Present: normal exam, mucous membranes moist - Neck Neck exam: Present: normal inspection, full ROM, other (No bruit). Absent: tenderness - Respiratory Respiratory exam: Present: normal lung sounds bilaterally. Absent: respiratory distress, wheezes, rales, chest wall tenderness - Cardiovascular Cardiovascular Exam: Present: normal rhythm, tachycardia. Absent: systolic murmur, diastolic murmur, rubs, gallop - GI/Abdominal GI/Abdominal exam: Present: soft, normal bowel sounds. Absent: distended, tenderness - Extremities Exam Extremities exam: Present: normal inspection - Expanded Upper Extremity Exam Right General: Present: normal inspection Shoulder Exam: Present: normal inspection Neurosensory exam: Present: other (mild sensory defect; 2/5 motor ) - Expanded Lower Extremity Exam Right Neuro vascular tendon exam: Present: motor deficit (1/5 motor) Gait: Positive: not tested/not observed (left lower extremity bka) - Back Exam Back exam: Present: normal inspection - Neurological Exam Neurological exam: Present: alert, oriented X3, CN II-XII intact, motor sensory deficit (See musculoskeletal exam), other (Unable to assess gait secondary to weakness and amputation) - NIHSS Assessment Interval: Baseline 1a. Level of Consciousness: alert/keenly responsive 1b. LOC Questions: answers both correctly 1c. LOC Commands: performs tasks correctly 2. Best Gaze: normal 3. Visual: no visual loss 4. Facial Palsy: normal symmetrical movement 5b. Motor Arm Right: some gravity effort 5a. Motor Arm Left: no drift 6a. Motor Leg Left: no drift 6b. Motor Leg Right: no gravity effort 7. Limb Ataxia: amputation 8. Sensory: mild/moderate sensory loss 9. Best Language: no aphasia 10. Dysarthria: normal 11. Extinction/Inattention: no abnormality Total Score: 6 Stroke Severity: Moderate Stroke - Psychiatric Psychiatric exam: Present: normal affect, normal mood - Skin Skin exam: Present: warm, dry, intact, normal color. Absent: rash ED Course Vital Signs 01/03/22 01/03/22 14:00 20:01 Pulse Rate 106 H Respiratory 14 Rate Blood Pressure 135/77 [Left] O2 Sat by Pulse 99 100 Oximetry - Reevaluation(s) Reevaluation #1: 01/03/22 18:41 Patient is currently still awaiting the results of her CT angio. Patient is requesting pain medication for her right lower extremity pain. - Lab Data Result diagrams: 01/03/22 14:29 01/03/22 14:29 Lab Results 01/03/22 01/03/22 01/03/22 Range/Units 14:29 14:29 14:29 WBC 12.4 H (4.5-11.0) K/mm3 RBC 3.35 L (3.65-5.03) M/mm3 Hgb 9.1 L (10.1-14.3) gm/dl Hct 27.6 L (30.3-42.9) % MCV 83 (79-97) fl MCH 27 L (28-32) pg MCHC 33 (30-34) % RDW 15.2 (13.2-15.2) % Plt Count 412 (140-440) K/mm3 Lymph % (Auto) 18.6 (13.4-35.0) % Daniels % (Auto) 6.3 (0.0-7.3) % Eos % (Auto) 1.4 (0.0-4.3) % Baso % (Auto) 1.1 (0.0-1.8) % Lymph # (Auto) 2.3 (1.2-5.4) K/mm3 Daniels # (Auto) 0.8 (0.0-0.8) K/mm3 Eos # (Auto) 0.2 (0.0-0.4) K/mm3 Baso # (Auto) 0.1 (0.0-0.1) K/mm3 Seg Neutrophils % 72.6 H (40.0-70.0) % Seg Neutrophils # 9.0 H (1.8-7.7) K/mm3 PT 13.0 (12.2-14.9) Sec. INR 0.87 (0.87-1.13) APTT Not Reportable Thrombin Time (15.1-19.6) Sec. Sodium 140 (137-145) mmol/L Potassium 4.0 (3.6-5.0) mmol/L Chloride 103.3 (98-107) mmol/L Carbon Dioxide 25 (22-30) mmol/L Anion Gap 16 mmol/L BUN 11 (7-17) mg/dL Creatinine 0.8 (0.6-1.2) mg/dL Estimated GFR > 60 ml/min BUN/Creatinine Ratio 14 % Glucose 162 H (65-100) mg/dL Calcium 9.0 (8.4-10.2) mg/dL Troponin T < 0.010 (0.00-0.029) ng/mL HCG, Qual (Negative) 01/03/22 01/03/22 01/03/22 Range/Units 17:10 17:10 18:46 WBC (4.5-11.0) K/mm3 RBC (3.65-5.03) M/mm3 Hgb (10.1-14.3) gm/dl Hct (30.3-42.9) % MCV (79-97) fl MCH (28-32) pg MCHC (30-34) % RDW (13.2-15.2) % Plt Count (140-440) K/mm3 Lymph % (Auto) (13.4-35.0) % Daniels % (Auto) (0.0-7.3) % Eos % (Auto) (0.0-4.3) % Baso % (Auto) (0.0-1.8) % Lymph # (Auto) (1.2-5.4) K/mm3 Daniels # (Auto) (0.0-0.8) K/mm3 Eos # (Auto) (0.0-0.4) K/mm3 Baso # (Auto) (0.0-0.1) K/mm3 Seg Neutrophils % (40.0-70.0) % Seg Neutrophils # (1.8-7.7) K/mm3 PT (12.2-14.9) Sec. INR (0.87-1.13) APTT 33.3 Thrombin Time 19.4 (15.1-19.6) Sec. Sodium (137-145) mmol/L Potassium (3.6-5.0) mmol/L Chloride (98-107) mmol/L Carbon Dioxide (22-30) mmol/L Anion Gap mmol/L BUN (7-17) mg/dL Creatinine (0.6-1.2) mg/dL Estimated GFR ml/min BUN/Creatinine Ratio % Glucose (65-100) mg/dL Calcium (8.4-10.2) mg/dL Troponin T < 0.010 (0.00-0.029) ng/mL HCG, Qual (Negative) 01/03/22 Range/Units 18:46 WBC (4.5-11.0) K/mm3 RBC (3.65-5.03) M/mm3 Hgb (10.1-14.3) gm/dl Hct (30.3-42.9) % MCV (79-97) fl MCH (28-32) pg MCHC (30-34) % RDW (13.2-15.2) % Plt Count (140-440) K/mm3 Lymph % (Auto) (13.4-35.0) % Daniels % (Auto) (0.0-7.3) % Eos % (Auto) (0.0-4.3) % Baso % (Auto) (0.0-1.8) % Lymph # (Auto) (1.2-5.4) K/mm3 Daniels # (Auto) (0.0-0.8) K/mm3 Eos # (Auto) (0.0-0.4) K/mm3 Baso # (Auto) (0.0-0.1) K/mm3 Seg Neutrophils % (40.0-70.0) % Seg Neutrophils # (1.8-7.7) K/mm3 PT (12.2-14.9) Sec. INR (0.87-1.13) APTT Thrombin Time (15.1-19.6) Sec. Sodium (137-145) mmol/L Potassium (3.6-5.0) mmol/L Chloride (98-107) mmol/L Carbon Dioxide (22-30) mmol/L Anion Gap mmol/L BUN (7-17) mg/dL Creatinine (0.6-1.2) mg/dL Estimated GFR ml/min BUN/Creatinine Ratio % Glucose (65-100) mg/dL Calcium (8.4-10.2) mg/dL Troponin T (0.00-0.029) ng/mL HCG, Qual Negative (Negative) - Radiology Data Radiology results: report reviewed ct head IMPRESSION: 1. Small areas of hypoattenuation in the left parietal lobe and centrum semiovale consistent with age indeterminate but possibly acute to subacute infarction. Correlate clinically. 2. Remote left putaminal infarction. Signer Name: Ky Park MD cta head/neck: IMPRESSION: 1. Extensively calcified atherosclerotic plaque is present along the course of the cavernous segments of both internal carotid arteries. This is associated with stenoses on the order of 60% severity. 2. No indication of large vessel occlusion. Signer Name: Sekou Ireland MD - Medical Decision Making Female with history of diabetes, but no history of stroke presents to the emergency department with right upper and lower extremity weakness since yeste rday, with only mild improvement of the right upper extremity weakness. Initial vital signs were unremarkable. Physical exam was concerning for right upper extremity and right lower extremity weakness. Lab work was remarkable for anemia (hemoglobin of 9.1) compared to CBCs here. Lab work is otherwise unremarkable. CT, CT a head and neck do not show large vessel occlusion, but ischemia and atherosclerotic disease. Patient will be admitted to the hospital for presumptive stroke, and verbalizes understanding of this decision with the disposition. Critical care attestation.: If time is entered above; I have spent that time in minutes in the direct care of this critically ill patient, excluding procedure time. ED Disposition Clinical Impression: Right sided weakness Disposition: ADMITTED INPATIENT Is pt being admited?: Yes Does the pt Need Aspirin: Yes Condition: Serious Referrals: PRIMARY CARE, [Primary Care Provider] - 3-5 Days
[2022-01-03 14:48] LABS: INR 0.87 (0.87-1.13)
[2022-01-03 14:54] LABS: BUN/Creatinine Ratio 14; Blood Urea Nitrogen 11 mg/dL (7-17); Hemolysis Index 8
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
[2022-01-03] MEDS ORDERED: MORPHINE 2 MG/1 ML INJ IV ONE (18:37)
[2022-01-03] MEDS ORDERED: ONDANSETRON 4 MG/2 ML INJ IV ONE (18:37)
--- NOTE | 2022-01-03 18:56 | Cat Scan Report ---
CTA neck without and with intravenous contrast material CLINICAL HISTORY: acute stroke 100ml of [id number] TECHNIQUE: Following acquisition of a timing bolus 0.625 mm thick contiguous axial scans were obtained from aort ic arch to the skull base during rapid bolus intravenous contrast infusion. In addition to evaluation of axial source images multiplanar reconstructions were produced and reviewed for this report. 3 alex ne MIP reconstructions were produced and reviewed. Contrast dose report: Omnipaque 350: 100 ml, administered intravenously All CT examinations performed at this facility utilize modulated dose reduction, iterative reconstruc tion or weight-based dosing, as appropriate, to obtain a radiation dose which is as low as can reason ably be achieved. FINDINGS: Thoracic aorta:No abnormalities are identified along the course of the thoracic aorta..The origins of the great vessels have an unremarkable appearance. Brachiocephalic artery, left common carotid arter y origin and left subclavian artery all have an unremarkable appearance. Right carotid artery:No abnormalities are seen along the course of the RCCA, at the right carotid bif urcation or along the cervical portions of the PITA. Left carotid artery: No abnormalities are noted along the course of the left common carotid artery, a t the left carotid bifurcation or along the course of the cervical segments of the LICA. Posterior circulation:The vertebral arteries have an unremarkable appearance. Both vertebral arteries contribute to the basilar artery origin. The basilar artery has an unremarkable appearance. The degree of stenosis, if any, is determined utilizing NASCET like criteria. In this case there is no indication of hemodynamically significant stenosis at the carotid bifurcations or elsewhere. Evaluation of the nonvascular soft tissue structures reveal no abnormality. There is no indication of cervical lymphadenopathy. No abnormalities are seen along the course of the airway. Visualized porti ons of the parotid glands and the submandibular salivary glands have a normal appearance. Thyroid gla nd has a normal appearance. Normal-sized cervical lymph nodes are demonstrated. There is no indicatio n of cervical lymphadenopathy. Evaluation of the lung apices reveals no evidence of lung nodule or in filtrate. Evaluation of the cervical spine revealed no significant abnormalities. IMPRESSION: 1. No indication of hemodynamically significant stenosis at the carotid bifurcations or elsewhere. CTA head with intravenous contrast CLINICAL HISTORY: acute stroke 100ml of [id number] TECHNIQUE: 0.625 mm thick contiguous axial scans were obtained from the skull base to the skull vertex during r apid bolus administration of intravenous contrast material. Multiplanar reconstructions were produced in the coronal and sagittal planes. In addition 3 plane MIP instructions were produced and reviewed for this report. The axial source images and reconstructed images were reviewed for this report. CONTRAST DOSE REPORT: Omnipaque 350: 100 ml administered intravenously. All CT scans at this location are performed using CT dose reduction for ALARA by means of automated e xposure control. FINDINGS: Internal carotid arteries: Calcified atherosclerotic plaque is seen along the course the cavernous se gments of both internal carotid arteries. This is associated with a degree of stenosis up to 60% cheyanne rity. This is an unusual finding in a 36-year-old individual and reflects the presence of advanced in tracranial atherosclerotic disease. Ossified plaque extends up into the clinoid segment of the left i nternal carotid artery. Middle cerebral arteries:Normal and symmetrical M1 segments of the middle cerebral arteries are demon strated. No abnormalities are seen on evaluation of the insular or opercular branches. Anterior cerebral arteries:Bilaterally symmetrical A1 segments are demonstrated. No abnormalities are seen along the course of the A2 segments or their visualized pericallosal branches. A definite anter ior communicating artery is not identified. Vertebral arteries:Bilaterally symmetrical vertebral arteries are demonstrated. Both vertebral arteri es contribute to the basilar artery origin. Basilar artery:Basilar artery has an unremarkable appearance. Posterior cerebral arteries:Bilaterally symmetrical posterior cerebral arteries are identified. Bila teral posterior communicating arteries are present. [place] of [place]:Not intact. see above. Dural sinuses: Dural venous sinuses are well demonstrated on this exam. There is no evidence of dural sinus thrombosis. IMPRESSION: 1. Extensively calcified atherosclerotic plaque is present along the course of the cavernous segments of both internal carotid arteries. This is associated with stenoses on the order of 60% severity. 2. No indication of large vessel occlusion. Signer Name: Sekou Ireland MD Signed: 01/03/2022 6:52 PM Workstation Name: [id number]
[2022-01-03] MEDS ORDERED: ASPIRIN 325 MG TAB PO ONE (20:02)
[2022-01-03] MEDS ORDERED: DEXTROSE 50% IN WATER (25GM) 50 ML SYRINGE IV PRN (21:53)
[2022-01-03] MEDS ORDERED: ACETAMINOPHEN 325 MG TAB PO PRN (21:53)
[2022-01-03] MEDS ORDERED: ALBUTEROL 2.5 MG/3 ML NEBU IH PRN (21:53)
--- NOTE | 2022-01-03 22:05 | History and Physical Report ---
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 Patient denies headache, dizziness, chest pain, or any other symptoms. Patient denies previous similar. Patient states that she was able to move her upper and lower extremity after being discharged from her procedure, yesterday, however at approximately 6 PM, she noticed that she was unable to move her right arm or right leg. Patient is right-hand dominant. Patient denies any alleviating or aggravating factors, but does report that she feels as if the weakness in her right arm is improving, slightly. Lab work was remarkable for anemia (hemoglobin of 9.1) compared to CBCs here. Lab work is otherwise unremarkable. CT, CT a head and neck do not show large vessel occlusion, but ischemia and atherosclerotic disease. Patient will be admitted to the hospital for presumptive stroke, Past History Past Medical History: diabetes, hypertension Past Surgical History: Other () Social history: no significant social history Family history: diabetes, hypertension Medications and Allergies Allergies Allergy/AdvReac Type Severity Reaction Status Date / Time No Known Allergies Allergy Verified 10/06/21 02:40 Home Medications Medication Instructions Recorded Confirmed Last Taken Type Aspirin [Baby Aspirin] 81 mg PO DAILY 02/11/13 04/12/14 04/11/14 History 81 mg Ferrous Sulfate [Ferrous Sulfate 300 mg PO DAILY 03/11/14 04/12/14 03/11/14 11:00 History Oral Liq 300 Mg/5 Ml] Insulin NPH, Human [NovoLIN N] 10 units SC QPM 03/11/14 04/12/14 04/11/14 History Insulin NPH, Human [NovoLIN N] 24 units SC QAM 03/11/14 04/12/14 04/11/14 History Insulin Regular, Human [HumuLIN R] 12 units SC QAM 03/11/14 04/12/14 04/11/14 08:30 History labetaloL [Normodyne] 400 mg PO BID 03/11/14 04/12/14 04/11/14 21:30 History Docusate Sodium [Colace CAP] 100 mg PO Q12H PRN #60 capsule 03/14/14 04/12/14 04/03/14 Rx Ferrous Sulfate [Feosol 325 MG tab] 325 mg PO TID #90 tablet 03/14/14 04/12/14 04/11/14 Rx labetaloL [Labetalol 200mg TAB] 200 mg PO BID #60 tablet 03/14/14 04/12/14 04/11/14 21:30 Rx Cholecalciferol (Vitamin D3) 5,000 unit PO DAILY #30 tablet 03/17/14 04/12/14 Unknown Rx [Vitamin D3] NIFEdipine*For Tocolysis only* 20 mg PO TID #180 capsule 03/17/14 04/12/14 04/11/14 21:30 Rx [PROCARDIA*For Tocolysis only*] Ferrous Sulfate [Feosol 325 MG tab] 325 mg PO TID #90 tablet 04/12/14 Unknown Rx Ibuprofen [Motrin 800 MG tab] 800 mg PO Q8H PRN #90 tablet 04/12/14 Unknown Rx NIFEdipine XL [Procardia Xl] 60 mg PO QDAY #30 tablet 04/12/14 Unknown Rx glipiZIDE [glipiZIDE XL] 5 mg PO DAILY #30 tab.er.24 04/12/14 Unknown Rx metFORMIN [Glucophage] 500 mg PO BID #60 tablet 04/12/14 Unknown Rx oxyCODONE /ACETAMINOPHEN [Percocet 1 tab PO Q6HR PRN #30 tablet 04/12/14 Unknown Rx 5/325 mg] Metoprolol [Lopressor] 12.5 mg PO BID #30 tablet 06/23/14 Unknown Rx Acetaminophen/Codeine [Tylenol #3] 1 tab PO Q6H PRN #20 tab 04/21/15 Unknown Rx Ibuprofen [Motrin 800 MG tab] 800 mg PO Q8HR PRN #30 tablet 04/21/15 Unknown Rx Penicillin Vk [Veetids TAB] 500 mg PO Q6HR #40 tablet 04/21/15 Unknown Rx Lispro Insulin [HumaLOG] See Protocol SQ QAC #10 ml 05/03/19 Unknown Rx lisinopriL [Zestril TAB] 20 mg PO QDAY #30 tablet 05/03/19 Unknown Rx Famotidine [Pepcid] 20 mg PO BID #60 tablet 12/03/20 Unknown Rx Meclizine [Antivert] 25 mg PO TID PRN #30 tab 12/03/20 Unknown Rx Ondansetron [Zofran Odt] 4 mg PO Q8HR PRN #20 tab.rapdis 12/03/20 Unknown Rx Metoclopramide [Reglan] 10 mg PO TID PRN #20 tab 12/24/20 Unknown Rx Mupirocin [Bactroban 2%] 1 applic TP BID #1 tube 10/06/21 Unknown Rx cephALEXin [Keflex] 500 mg PO BID 7 Days #14 cap 10/06/21 Unknown Rx Silver Sulfadiazine [Silvadene] 1 applic TP DAILY 14 Days #1000 10/25/21 Unknown Rx gram Sulfamethoxazole/Trimethoprim 1 each PO BID #14 tab 10/25/21 Unknown Rx [Bactrim DS TAB] Review of Systems All systems: negative Constitutional: weakness, malaise, other (Right-sided weakness and numbness) Exam - Constitutional Vitals: Temp Pulse Resp BP Pulse Ox 106 H 14 135/77 100 01/03/22 20:01 01/03/22 20:01 01/03/22 20:01 01/03/22 20:01 General appearance: Present: no acute distress, well-nourished - EENT Eyes: Present: PERRL ENT: hearing intact, clear oral mucosa - Neck Neck: Present: supple, normal ROM - Respiratory Respiratory effort: normal Respiratory: bilateral: CTA - Cardiovascular Heart Sounds: Present: S1 & S2. Absent: rub, click - Extremities Extremities: pulses symmetrical, No edema Peripheral Pulses: within normal limits - Abdominal General gastrointestinal: Present: soft, non-tender, non-distended, normal bowel sounds Female genitourinary: Present: normal - Integumentary Integumentary: Present: clear, warm, dry - Musculoskeletal Musculoskeletal: gait normal, strength equal bilaterally - Psychiatric Psychiatric: appropriate mood/affect, intact judgment & insight - Neurologic Neurologic: CNII-XII intact, moves all extremities, other (Present: alert, o riented X3, CN II-XII intact, motor sensory deficit (See musculoskeletal exam), other (Unable to assess gait secondary to weakness and amputation)) HEART Score - HEART Score Troponin: Troponin T < 0.010 ng/mL (0.00-0.029) 01/03/22 17:10 Results - Labs CBC & Chem 7: 01/03/22 14:29 01/03/22 14:29 Labs: Laboratory Last Values WBC 12.4 K/mm3 (4.5-11.0) H 01/03/22 14:29 RBC 3.35 M/mm3 (3.65-5.03) L 01/03/22 14:29 Hgb 9.1 gm/dl (10.1-14.3) L 01/03/22 14:29 Hct 27.6 % (30.3-42.9) L 01/03/22 14:29 MCV 83 fl (79-97) 01/03/22 14: MCH 27 pg (28-32) L 01/03/22 14: MCHC 33 % (30-34) 01/03/22 14: RDW 15.2 % (13.2-15.2) 01/03/22 14:29 Plt Count 412 K/mm3 (140-440) 01/03/22 14:29 Lymph % (Auto) 18.6 % (13.4-35.0) 01/03/22 14:29 [place] % (Auto) 6.3 % (0.0-7.3) 01/03/22 14:29 Eos % (Auto) 1.4 % (0.0-4.3) 01/03/22 14:29 Baso % (Auto) 1.1 % (0.0-1.8) 01/03/22 14:29 Lymph # (Auto) 2.3 K/mm3 (1.2-5.4) 01/03/22 14:29 [place] # (Auto) 0.8 K/mm3 (0.0-0.8) 01/03/22 14:29 Eos # (Auto) 0.2 K/mm3 (0.0-0.4) 01/03/22 14: Baso # (Auto) 0.1 K/mm3 (0.0-0.1) 01/03/22 14:29 Seg Neutrophils % 72.6 % (40.0-70.0) H 01/03/22 14:29 Seg Neutrophils # 9.0 K/mm3 (1.8-7.7) H 01/03/22 14:29 PT 13.0 Sec. (12.2-14.9) 01/03/22 14:29 INR 0.87 (0.87-1.13) 01/03/22 14:29 APTT 33.3 Sec. (24.2-36.6) 01/03/22 18:46 Thrombin Time 19.4 Sec. (15.1-19.6) 01/03/22 17:10 Sodium 140 mmol/L (137-145) 01/03/22 14:29 Potassium 4.0 mmol/L (3.6-5.0) 01/03/22 14:29 Chloride 103.3 mmol/L (98-107) 01/03/22 14:29 Carbon Dioxide 25 mmol/L (22-30) 01/03/22 14:29 Anion Gap 16 mmol/L 01/03/22 14:29 BUN 11 mg/dL (7-17) 01/03/22 14:29 Creatinine 0.8 mg/dL (0.6-1.2) 01/03/22 14:29 Estimated GFR > 60 ml/min 01/03/22 14:29 BUN/Creatinine Ratio 14 % 01/03/22 14:29 Glucose 162 mg/dL (65-100) H 01/03/22 14:29 Calcium 9.0 mg/dL (8.4-10.2) 01/03/22 14:29 Troponin T < 0.010 ng/mL (0.00-0.029) 01/03/22 17:10 HCG, Qual Negative (Negative) 01/03/22 18:46 - Imaging and Cardiology CT Scan - head: report reviewed Assessment and Plan VTE prophylaxis?: Mechanical Plan of care discussed with patient/family: Yes - Patient Problems (1) Right sided weakness Current Visit: Yes Status: Acute Plan to address problem: Admit the patient to the medical telemetry. Aspirin 325 mg p.o. daily. Lipitor 40 mg p.o. daily. PT OT speech evaluation. MRI of the brain and MRI of the brain and neck with and without contrast. Echocardiogram. Neurology evaluation (2) Hypertension Current Visit: Yes Status: Acute Plan to address problem: Lisinopril 20 mg p.o. daily. Metoprolol 12.5 mg p.o. twice daily. Procardia XL 60 mg p.o. daily. We will monitor the patient closely (3) Diabetes Current Visit: Yes Status: Acute Plan to address problem: Accu-Chek every 6 hours with Humalog moderate dose coverage. Diabetic ed ucation. Recheck BMP in the morning (4) DVT prophylaxis Current Visit: Yes Status: Acute Plan to address problem: SCD for DVT prophylaxis. Pepcid 20 mg IV every 12 hours for GI prophylaxis. Patient is a full code
[2022-01-03] MEDS: FAMOTIDINE 20 MG/2 ML INJ IV SCH (23:21)
[2022-01-03] MEDS: METOPROLOL TARTRATE 25 MG TAB PO SCH (23:21)
[2022-01-03] MEDS: MORPHINE 4 MG/1 ML INJ IV PRN (23:21)
[2022-01-04] MEDS: INSULIN LISPRO 100 UNIT/ML SUB-Q SCH ×3 (03:33→15:57)
[2022-01-04] MEDS: IPRATROPIUM/ALBUTEROL SULFATE 3 ML AMPUL.NEB IH SCH ×2 (04:00→10:09)
[2022-01-04] MEDS: MORPHINE 4 MG/1 ML INJ IV PRN ×3 (07:38→19:58)
--- NOTE | 2022-01-04 09:09 | Progress Note ---
Assessment and Plan Assessment and plan: - Patient Problems --Right sided weakness/acute CVA Not a candidate for tPA/evaluated by telemetry neurologist in the ED Aspirin 325 mg p.o. daily. Lipitor 40 mg p.o. daily. PT OT speech evaluation. MRI of the brain and MRI of the brain and neck with and without contrast. Echocardiogram. Neurology evaluation PT OT ST evaluation -- Hypertension; Permissive hypertension per stroke protocol first 24 to 48 hours Lisinopril 20 mg p.o. daily. Metoprolol 12.5 mg p.o. twice daily. Procardia XL 60 mg p.o. daily. We will monitor the patient closely -- type II diabetes melitis Accu-Cheks sliding scale coverage ADA diet Insulin as needed, check A1c if not done last 6 months --DVT prophylaxis SCD for DVT prophylaxis. Pepcid 20 mg IV every 12 hours for GI prophylaxis. Patient is a full code Closely monitor the patient and adjust management as needed Plan of care reviewed with the patient and the nurse History Interval history: Have seen and examined the patient at the bedside Patient's chart and medications reviewed Vital signs noted Hospitalist Physical - Constitutional Vitals: Temp Pulse Resp BP Pulse Ox 98 H 14 158/90 100 01/04/22 08:09 01/04/22 08:09 01/04/22 08:09 01/04/22 08:09 General appearance: Present: no acute distress, well-nourished - EENT Eyes: Present: PERRL, EOM intact - Neck Neck: Present: supple, normal ROM - Respiratory Respiratory effort: normal Respiratory: bilateral: diminished, negative: rales, rhonchi, wheezing - Cardiovascular Rhythm: regular Heart Sounds: Present: S1 & S2 - Extremities Extremities: no ischemia, No edema - Abdominal General gastrointestinal: soft, non-tender, non-distended, normal bowel sounds - Integumentary Integumentary: Present: clear, warm - Psychiatric Psychiatric: appropriate mood/affect, cooperative - Neurologic Neurologic: moves all extremities HEART Score - HEART Score Troponin: Troponin T < 0.010 ng/mL (0.00-0.029) 01/03/22 17:10 Results - Labs CBC & Chem 7: 01/03/22 14:29 01/03/22 14:29 Labs: Laboratory Last Values WBC 12.4 K/mm3 (4.5-11.0) H 01/03/22 14: RBC 3.35 M/mm3 (3.65-5.03) L 01/03/22 14:29 Hgb 9.1 gm/dl (10.1-14.3) L 01/03/22 14:29 Hct 27.6 % (30.3-42.9) L 01/03/22 14:29 MCV 83 fl (79-97) 01/03/22 14: MCH 27 pg (28-32) L 01/03/22 14: MCHC 33 % (30-34) 01/03/22 14: RDW 15.2 % (13.2-15.2) 01/03/22 14: Plt Count 412 K/mm3 (140-440) 01/03/22 14: Lymph % (Auto) 18.6 % (13.4-35.0) 01/03/22 14: [place] % (Auto) 6.3 % (0.0-7.3) 01/03/22 14: Eos % (Auto) 1.4 % (0.0-4.3) 01/03/22 14:29 Baso % (Auto) 1.1 % (0.0-1.8) 01/03/22 14: Lymph # (Auto) 2.3 K/mm3 (1.2-5.4) 01/03/22 14: [place] # (Auto) 0.8 K/mm3 (0.0-0.8) 01/03/22 14: Eos # (Auto) 0.2 K/mm3 (0.0-0.4) 01/03/22 14: Baso # (Auto) 0.1 K/mm3 (0.0-0.1) 01/03/22 14:29 Seg Neutrophils % 72.6 % (40.0-70.0) H 01/03/22 14: Seg Neutrophils # 9.0 K/mm3 (1.8-7.7) H 01/03/22 14:29 PT 13.0 Sec. (12.2-14.9) 01/03/22 14: INR 0.87 (0.87-1.13) 01/03/22 14:29 APTT 33.3 Sec. (24.2-36.6) 01/03/22 18:46 Thrombin Time 19.4 Sec. (15.1-19.6) 01/03/22 17:10 Sodium 140 mmol/L (137-145) 01/03/22 14:29 Potassium 4.0 mmol/L (3.6-5.0) 01/03/22 14:29 Chloride 103.3 mmol/L (98-107) 01/03/22 14:29 Carbon Dioxide 25 mmol/L (22-30) 01/03/22 14:29 Anion Gap 16 mmol/L 01/03/22 14:29 BUN 11 mg/dL (7-17) 01/03/22 14:29 Creatinine 0.8 mg/dL (0.6-1.2) 01/03/22 14:29 Estimated GFR > 60 ml/min 01/03/22 14:29 BUN/Creatinine Ratio 14 % 01/03/22 14:29 Glucose 162 mg/dL (65-100) H 01/03/22 14:29 POC Glucose 179 mg/dL (70-105) H 01/04/22 03:32 Calcium 9.0 mg/dL (8.4-10.2) 01/03/22 14:29 Troponin T < 0.010 ng/mL (0.00-0.029) 01/03/22 17:10 HCG, Qual Negative (Negative) 01/03/22 18:46 Active Medications - Current Medications Current Medications: Generic Name Dose Route Start Last Admin Trade Name Freq PRN Reason Stop Dose Admin Acetaminophen 650 mg 01/03/22 21:53 Acetaminophen 325 Mg Tab PO Q4H PRN Pain MILD(1-3)/Fever >100.5/WOLFE Albuterol 2.5 mg 01/03/22 21:53 Albuterol 2.5 Mg/3 Ml Nebu IH Q3HRT PRN Shortness Of Breath Albuterol/Ipratropium 1 ampul 01/04/22 02:00 01/04/22 04:00 Ipratropium/Albuterol Sulfate 3 Ml Ampul.Neb IH Not Given Q6HRT ROSALINA Aspirin 325 mg 01/04/22 10:00 Aspirin 325 Mg Tab PO QDAY ROSALINA Atorvastatin Calcium 40 mg 01/03/22 22:00 01/03/22 23:21 Atorvastatin 40 Mg Tab PO 40 mg QHS ROSALINA Administration Dextrose 50 ml 01/03/22 21:53 Dextrose 50% In Water (25gm) 50 Ml Syringe IV Q30MIN PRN Hypoglycemia Protocol Famotidine 20 mg 01/03/22 22:00 01/03/22 23:21 Famotidine 20 Mg/2 Ml Inj IV 20 mg BID [facility] Administration Ferrous Sulfate 325 mg 01/04/22 08:00 Ferrous Sulfate 325 Mg Tab PO TID [facility] Sodium Chloride 1,000 mls @ 100 mls/hr 01/03/22 22:00 Nacl 0.9% 1000 Ml IV DIRECT [facility] Insulin Human Lispro 0 unit 01/04/22 00:00 01/04/22 03:33 Insulin Lispro 100 Unit/Ml SUB-Q 2 unit Q6HR [facility] Administration Protocol Lisinopril 20 mg 01/04/22 10:00 Lisinopril 20 Mg Tab PO QDAY [facility] Metoprolol Tartrate 12.5 mg 01/03/22 22:00 01/03/22 23:21 Metoprolol Tartrate 25 Mg Tab PO 12.5 mg BID [facility] Administration Morphine Sulfate 2 mg 01/03/22 21:53 Morphine 2 Mg/1 Ml Inj IV Q4H PRN Pain, Moderate (4-6) Morphine Sulfate 4 mg 01/03/22 21:53 01/04/22 07:38 Morphine 4 Mg/1 Ml Inj IV 4 mg Q4H PRN Administration Pain , Severe (7-10) Nifedipine 60 mg 01/04/22 10:00 Nifedipine Xl 60 Mg Tab PO QDAY [facility] Ondansetron HCl 4 mg 01/03/22 21:53 Ondansetron 4 Mg/2 Ml Inj IV Q8H PRN Nausea And Vomiting Silver Sulfadiazine 1 applic 01/04/22 10:00 Silver Sulfadiazine Cream 50 Gm TP DAILY [facility] Sodium Chloride 10 ml 01/03/22 22:00 01/03/22 23:21 Sodium Chloride 0.9% 10 Ml Flush Syringe IV 10 ml BID [facility] Administration Sodium Chloride 10 ml 01/03/22 21:53 Sodium Chloride 0.9% 10 Ml Flush Syringe IV PRN PRN LINE FLUSH
[2022-01-04] MEDS: METOPROLOL TARTRATE 25 MG TAB PO SCH ×2 (10:11→22:11)
[2022-01-04] MEDS: NIFEdipine XL 60 MG TAB PO SCH (10:11)
[2022-01-04] MEDS: ASPIRIN 325 MG TAB PO SCH (10:12)
[2022-01-04] MEDS: LISINOPRIL 20 MG TAB PO SCH (10:13)
[2022-01-04] MEDS: FERROUS SULFATE 325 MG TAB PO SCH ×3 (10:13→22:11)
[2022-01-04] MEDS: FAMOTIDINE 20 MG/2 ML INJ IV SCH ×2 (10:13→22:11)
[2022-01-04] MEDS: MORPHINE 2 MG/1 ML INJ IV PRN (11:02)
--- NOTE | 2022-01-04 11:47 | Electrocardiograph Report ---
[facility] Test Date: 2022-01-03 Test Time: 14:29:41 Pat Name: RONNY SCHMIDT Department: Room: A485 1 Gender: F Radio Installer: BRIDGET : 1985 Requested By: MARAL BORDEN Order Number: [id number] Reading MD: Earle Ricardo Measurements Intervals [place] Rate: 116 P: 63 WV: 161 QRS: 32 QRSD: 79 T: 49 QT: 336 QTc: 468 Interpretive Statements Sinus tachycardia Low voltage, precordial leads Compared to ECG 12/24/2020 12:03:16 Low QRS voltage now present Myocardial infarct finding no longer present Prolonged QT interval no longer present Electronically Signed On 01-04-2022 11:47:11 EDT by Earle Ricardo
[2022-01-04] MEDS ORDERED: INSULIN NPH/REGULAR 70/30 INJ SUB-Q ONE (21:00)
[2022-01-04] MEDS: SODIUM CHLORIDE 0.9% 1000 ML 1,000 ML IV SCH (22:10)
[2022-01-05] MEDS: INSULIN LISPRO 100 UNIT/ML SUB-Q SCH ×5 (01:04→20:50)
[2022-01-05] MEDS: MORPHINE 4 MG/1 ML INJ IV PRN ×3 (06:25→21:49)
[2022-01-05] MEDS: FERROUS SULFATE 325 MG TAB PO SCH ×3 (08:32→21:50)
[2022-01-05] MEDS: INSULIN NPH/REGULAR 70/30 INJ SUB-Q SCH ×2 (08:32→18:15)
[2022-01-05] MEDS: FAMOTIDINE 20 MG TAB PO SCH ×2 (10:36→21:50)
[2022-01-05] MEDS: METOPROLOL TARTRATE 25 MG TAB PO SCH ×2 (10:36→21:50)
[2022-01-05] MEDS: LISINOPRIL 20 MG TAB PO SCH (10:37)
[2022-01-05] MEDS: NIFEdipine XL 60 MG TAB PO SCH (10:37)
[2022-01-05] MEDS: ASPIRIN 325 MG TAB PO SCH (10:37)
[2022-01-05] MEDS: MORPHINE 2 MG/1 ML INJ IV PRN (10:39)
--- NOTE | 2022-01-05 12:20 | Progress Note ---
Assessment and Plan Assessment and plan: --Right sided weakness/acute CVA Not a candidate for tPA/evaluated by telemetry neurologist in the ED Aspirin 325 mg p.o. daily. Lipitor 40 mg p.o. daily. PT OT speech evaluation. MRI of the brain and MRI of the brain and neck with and without contrast. Echocardiogram. Neurology evaluation PT OT ST evaluation -Right hemiparesis; - Hypertension; Permissive hypertension per stroke protocol first 24 to 48 hours Lisinopril 20 mg p.o. daily. Metoprolol 12.5 mg p.o. twice daily. Procardia XL 60 mg p.o. daily. We will monitor the patient closely -- type II diabetes melitis Accu-Cheks sliding scale coverage ADA diet Insulin as needed, check A1c if not done last 6 months --DVT prophylaxis SCD for DVT prophylaxis. Pepcid 20 mg IV every 12 hours for GI prophylaxis. Patient is a full code Closely monitor the patient and adjust management as needed Plan of care reviewed with the patient and the nurse History Interval history: I have seen and examined the patient at the bedside Patient feels slightly better very anxious about her right-sided weakness Neuro work-up is in progress Vital signs reviewed Hospitalist Physical - Constitutional Vitals: Temp Pulse Resp BP Pulse Ox 97.9 F 96 H 18 121/69 96 01/05/22 08:20 01/05/22 09:00 01/05/22 08:20 01/05/22 08:20 01/05/22 08:20 General appearance: Present: no acute distress, well-nourished - EENT Eyes: Present: PERRL, EOM intact - Neck Neck: Present: supple, normal ROM - Respiratory Respiratory effort: normal Respiratory: bilateral: diminished, negative: rales, rhonchi, wheezing - Cardiovascular Rhythm: regular Heart Sounds: Present: S1 & S2 - Extremities Extremities: no ischemia, No edema - Abdominal General gastrointestinal: soft, non-tender, non-distended, normal bowel sounds - Integumentary Integumentary: Present: clear, warm - Psychiatric Psychiatric: appropriate mood/affect, cooperative - Neurologic Neurologic: other (Acute CVA with right hemiparesis) HEART Score - HEART Score Troponin: Troponin T < 0.010 ng/mL (0.00-0.029) 01/03/22 17:10 Results - Labs CBC & Chem 7: 01/03/22 14:29 01/03/22 14:29 Labs: Laboratory Last Values WBC 12.4 K/mm3 (4.5-11.0) H 01/03/22 14:29 RBC 3.35 M/mm3 (3.65-5.03) L 01/03/22 14:29 Hgb 9.1 gm/dl (10.1-14.3) L 01/03/22 14:29 Hct 27.6 % (30.3-42.9) L 01/03/22 14:29 MCV 83 fl (79-97) 01/03/22 14: MCH 27 pg (28-32) L 01/03/22 14: MCHC 33 % (30-34) 01/03/22 14: RDW 15.2 % (13.2-15.2) 01/03/22 14: Plt Count 412 K/mm3 (140-440) 01/03/22 14:29 Lymph % (Auto) 18.6 % (13.4-35.0) 01/03/22 14:29 [place] % (Auto) 6.3 % (0.0-7.3) 01/03/22 14: Eos % (Auto) 1.4 % (0.0-4.3) 01/03/22 14: Baso % (Auto) 1.1 % (0.0-1.8) 01/03/22 14:29 Lymph # (Auto) 2.3 K/mm3 (1.2-5.4) 01/03/22 14:29 [place] # (Auto) 0.8 K/mm3 (0.0-0.8) 01/03/22 14: Eos # (Auto) 0.2 K/mm3 (0.0-0.4) 01/03/22 14: Baso # (Auto) 0.1 K/mm3 (0.0-0.1) 01/03/22 14: Seg Neutrophils % 72.6 % (40.0-70.0) H 01/03/22 14:29 Seg Neutrophils # 9.0 K/mm3 (1.8-7.7) H 01/03/22 14:29 PT 13.0 Sec. (12.2-14.9) 01/03/22 14:29 INR 0.87 (0.87-1.13) 01/03/22 14:29 APTT 33.3 Sec. (24.2-36.6) 01/03/22 18:46 Thrombin Time 19.4 Sec. (15.1-19.6) 01/03/22 17:10 Sodium 140 mmol/L (137-145) 01/03/22 14:29 Potassium 4.0 mmol/L (3.6-5.0) 01/03/22 14:29 Chloride 103.3 mmol/L (98-107) 01/03/22 14:29 Carbon Dioxide 25 mmol/L (22-30) 01/03/22 14:29 Anion Gap 16 mmol/L 01/03/22 14:29 BUN 11 mg/dL (7-17) 01/03/22 14:29 Creatinine 0.8 mg/dL (0.6-1.2) 01/03/22 14:29 Estimated GFR > 60 ml/min 01/03/22 14:29 BUN/Creatinine Ratio 14 % 01/03/22 14:29 Glucose 162 mg/dL (65-100) H 01/03/22 14:29 POC Glucose 244 mg/dL (70-105) H 01/04/22 16:40 Calcium 9.0 mg/dL (8.4-10.2) 01/03/22 14:29 Troponin T < 0.010 ng/mL (0.00-0.029) 01/03/22 17:10 HCG, Qual Negative (Negative) 01/03/22 18:46 Active Medications - Current Medications Current Medications: Generic Name Dose Route Start Last Admin Trade Name Freq PRN Reason Stop Dose Admin Acetaminophen 650 mg 01/03/22 21:53 Acetaminophen 325 Mg Tab PO Q4H PRN Pain MILD(1-3)/Fever >100.5/WOLFE Albuterol 2.5 mg 01/03/22 21:53 Albuterol 2.5 Mg/3 Ml Nebu IH Q3HRT PRN Shortness Of Breath Aspirin 325 mg 01/04/22 10:00 01/05/22 10:37 Aspirin 325 Mg Tab PO 325 mg QDAY ROSALINA Administration Atorvastatin Calcium 40 mg 01/03/22 22:00 01/04/22 22:13 Atorvastatin 40 Mg Tab PO 40 mg QHS ROSALINA Administration Dextrose 50 ml 01/03/22 21:53 Dextrose 50% In Water (25gm) 50 Ml Syringe IV Q30MIN PRN Hypoglycemia Protocol Famotidine 20 mg 01/05/22 10:00 01/05/22 10:36 Famotidine 20 Mg Tab PO 20 mg BID ROSALINA Administration Ferrous Sulfate 325 mg 01/04/22 08:00 01/05/22 08:32 Ferrous Sulfate 325 Mg Tab PO 325 mg TID ROSALINA Administration Sodium Chloride 1,000 mls @ 100 mls/hr 01/03/22 22:00 01/04/22 22:10 Nacl 0.9% 1000 Ml IV 100 mls/hr DIRECT ROSALINA Administration Insulin Human Isoph/Insulin Regular 15 unit 01/05/22 08:00 01/05/22 08:32 Insulin Nph/Regular 70/30 Inj SUB-Q 15 unit BIDDIAB ROSALINA Administration Insulin Human Lispro 0 unit 01/04/22 00:00 01/05/22 12:06 Insulin Lispro 100 Unit/Ml SUB-Q Not Given Q6HR [facility] Protocol Lisinopril 20 mg 01/04/22 10:00 01/05/22 10:37 Lisinopril 20 Mg Tab PO 20 mg QDAY ROSALINA Administration Metoprolol Tartrate 12.5 mg 01/03/22 22:00 01/05/22 10:36 Metoprolol Tartrate 25 Mg Tab PO 12.5 mg BID ROSALINA Administration Morphine Sulfate 2 mg 01/03/22 21:53 01/05/22 10:39 Morphine 2 Mg/1 Ml Inj IV 2 mg Q4H PRN Administration Pain, Moderate (4-6) Morphine Sulfate 4 mg 01/03/22 21:53 01/05/22 06:25 Morphine 4 Mg/1 Ml Inj IV 4 mg Q4H PRN Administration Pain , Severe (7-10) Nifedipine 60 mg 01/04/22 10:00 01/05/22 10:37 Nifedipine Xl 60 Mg Tab PO 60 mg QDAY ROSALINA Administration Ondansetron HCl 4 mg 01/03/22 21:53 Ondansetron 4 Mg/2 Ml Inj IV Q8H PRN Nausea And Vomiting Silver Sulfadiazine 1 applic 01/04/22 10:00 01/05/22 10:39 Silver Sulfadiazine Cream 50 Gm TP Not Given DAILY [facility] Sodium Chloride 10 ml 01/03/22 22:00 01/05/22 10:37 Sodium Chloride 0.9% 10 Ml Flush Syringe IV 10 ml BID ROSALINA Administration Sodium Chloride 10 ml 01/03/22 21:53 Sodium Chloride 0.9% 10 Ml Flush Syringe IV PRN PRN LINE FLUSH Nutrition/Malnutrition Assess - Dietary Evaluation Nutrition/Malnutrition Findings: Nutrition Notes Start: 01/04/22 14:13 Freq: Status: Active Protocol: Document 01/04/22 14:13 CAROLEE (Rec: 01/04/22 14:24 CAROLEE [id number]) Nutrition Notes Need for Assessment generated from: MD Order,Education Initial or Follow up Brief Note Current Diagnosis Diabetes,Hypertension Other Pertinent Diagnosis Anemia, s/p L-BKA, 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 Current Diet NPO (since 01/03 21:54). Height 5 ft 5 in Weight 97.5 kg [place] Body Weight (kg) 56.81 BMI 35.7 Intake Prior to Admission Good Weight change and time frame Pt denies having loss body weight [employer]PER[employer]. Weight Status Obese Subjective/Other Information RD consult for nutrition education assessment. Pt is currently on NPO, pending PT, DESK CLERK evaluatioin. Pt is on Room Air, O2 saturation @ 99%, according to Physical Assessment History notes. Pt has missing teeth, according to Physical Assessment History notes. Pt passed bedside swallow assessment on 01/04, according to Swallow Screen notes. Pt shows a surgical wound on R -Foot as sign of concern for skin risk at the time, according to Physical Assessment History notes. Pt still in critical condition , not a candidate for Nutrition Education at the time, will assess feasibility on F/U. Percent of energy/protein needs met: Pt is currently on NPO. Nutrition Intervention Follow-Up By: 01/06/22 Additional Comments Nutrition education will be provided at F/U, if feasible. When pertinent, start monitoring food tolerance, %PO intake of meals, and BM.
[2022-01-06] MEDS: INSULIN LISPRO 100 UNIT/ML SUB-Q SCH ×4 (00:45→17:36)
[2022-01-06] MEDS: MORPHINE 2 MG/1 ML INJ IV PRN ×3 (08:22→22:05)
[2022-01-06] MEDS: FERROUS SULFATE 325 MG TAB PO SCH ×3 (08:22→22:05)
[2022-01-06] MEDS: SODIUM CHLORIDE 0.9% 1000 ML 1,000 ML IV SCH (08:23)
[2022-01-06] MEDS: INSULIN NPH/REGULAR 70/30 INJ SUB-Q SCH ×2 (10:19→17:35)
[2022-01-06] MEDS: LISINOPRIL 20 MG TAB PO SCH (10:56)
[2022-01-06] MEDS: FAMOTIDINE 20 MG TAB PO SCH ×2 (10:56→22:05)
[2022-01-06] MEDS: ASPIRIN 325 MG TAB PO SCH (10:56)
[2022-01-06] MEDS: METOPROLOL TARTRATE 25 MG TAB PO SCH ×2 (10:56→22:05)
[2022-01-06] MEDS: NIFEdipine XL 60 MG TAB PO SCH (10:56)
[2022-01-06] MEDS: ONDANSETRON 4 MG/2 ML INJ IV PRN (10:57)
[2022-01-06 11:57] LABS: Chol/HDL Ratio 4.15 %
--- NOTE | 2022-01-06 12:27 | Magnetic Resonance Report ---
MR brain wo con INDICATION / CLINICAL INFORMATION: 36 years Female; stroke. TECHNIQUE: Multiplanar, multisequence MR images of the brain were obtained. COMPARISON: CT-01/03/2022 FINDINGS: BRAIN / INTRACRANIAL CONTENTS: Small areas of acute/early subacute ischemia are seen in the periventr icular, deep, and peripheral white matter of the left cerebral hemisphere, predominantly involving th e posterior frontal lobe. Findings are positioned to affect the motor cortex, particularly near the h and motor region. Old corpus striatal type infarct seen in the anterior gangliocapsular region on the left. Old, small branch PICA infarcts seen on the right. Otherwise, no acute hemorrhage, mass effect, midline shift, hydrocephalus, or acute, large territori al infarct. No chronic infarct or atrophy. There are [id number] areas of increased signal intensity on FLAIR imaging in the white matter o f the cerebral hemispheres, left greater than right. These are nonspecific findings and may be relate d to microangiopathy (hypertension, diabetes, atherosclerosis), given the patient's age. Pontine dise ase suspected. CRANIOCERVICAL JUNCTION: No significant abnormality. VASCULAR FLOW-VOIDS: No significant abnormality. ORBITS: No significant abnormality of visualized orbits. SINUSES / MASTOIDS: Mild to moderate mucosal thickening in the ethmoids. There is also mild mucosal t hickening in the maxillary antra. ADDITIONAL FINDINGS: None. IMPRESSION: 1. Acute/early subacute ischemic changes seen in the white matter of the left cerebral hemisphere as described above. No signs of hemorrhagic transformation. Signer Name: Mateo Cottrell MD, III Signed: 01/06/2022 12:22 PM Workstation Name: [id number]
--- NOTE | 2022-01-06 12:38 | Magnetic Resonance Report ---
MR MRA/MRV head wo con INDICATION / CLINICAL INFORMATION: 36 years Female; stroke. TECHNIQUE: 3-D time of flight. NASCET type criteria used to evaluate stenoses. COMPARISON: CTA head-01/03/2022 FINDINGS: INTERNAL CAROTID ARTERIES: Focal area of significant narrowing may be present in the anterior genu of the LICA. This finding may be artifactual. Longer segment areas of moderate to high-grade narrowing are seen in the cavernous portion of the R I CA, extending into the communicating portion of the vessel. Focal area of moderate narrowing suggeste d in the carotid canal portion of the right ICA, distally. Similar findings seen on recent CTA of the head. VERTEBROBASILAR SYSTEM: No significant narrowing appreciated. DISTAL BRANCHES: Distal branches of the anterior, middle, and posterior cerebral arteries are fairly symmetric in appearance and number. The A1 segment on the left is dominant when compared with the right. There is suggestion of narrowing of the proximal A2 segment on the right, felt to be related to artif act from adjacent planum sphenoidale. This area does not appear narrowed on recent CTA. Focal area of mild narrowing is seen in the proximal M1 segment on the left. There are focal areas of significant narrowing in the MCA trifurcation region on the left as well. Si milar findings suggested on prior. ANEURYSM: None identified. IMPRESSION: 1. Significant findings seen in both internal carotid arteries, right greater than left, as described above. 2. There are also significant findings in the left MCA territory, as described above. 3. Similar findings seen on recent CTA of the head. Signer Name: Mateo Cottrell MD, III Signed: 01/06/2022 12:33 PM Workstation Name: [id number]
--- NOTE | 2022-01-06 15:23 | Progress Note ---
Subjective Date of service: 01/06/22 Principal diagnosis: CVA Interval history: No improvement since the admission reports weakness in the right upper and lower extremity . Left upper and lower extremity is normal. Impression /Plan : 1. Reviewed MRI Brain and MRA - / ischemic CVA ( inpatient rehabilliation is recommended ). 2. Risk Factors of CVA 3. Needs Antiplatelet and Stroke Risk Factor Management . Call Back with Questions Dr Allen Darling Objective - Vital Sign Vital Signs - 12hr 01/06/22 01/06/22 01/06/22 04:33 07:58 09:00 Temperature 98.2 F 98.1 F Pulse Rate 97 H 103 H 101 H Respiratory 20 18 Rate Blood Pressure 132/70 127/72 O2 Sat by Pulse 95 94 Oximetry 01/06/22 11:34 Temperature Pulse Rate Respiratory 18 Rate Blood Pressure O2 Sat by Pulse 96 Oximetry - Laboratory Findings CBC and BMP: 01/03/22 14:29 01/03/22 14:29 Abnormal Lab Findings: Abnormal Labs 01/03/22 01/03/22 01/04/22 14:29 14:29 03:32 WBC 12.4 H RBC 3.35 L Hgb 9.1 L Hct 27.6 L MCH 27 L Seg Neutrophils % 72.6 H Seg Neutrophils # 9.0 H Glucose 162 H POC Glucose 179 H 01/04/22 01/04/22 01/04/22 09:55 12:01 16:40 WBC RBC Hgb Hct MCH Seg Neutrophils % Seg Neutrophils # Glucose POC Glucose 220 H 235 H 244 H 01/05/22 01/05/22 01/05/22 00:59 06:19 08:19 WBC RBC Hgb Hct MCH Seg Neutrophils % Seg Neutrophils # Glucose POC Glucose 218 H 129 H 138 H 01/05/22 01/05/22 01/05/22 11:14 15:22 21:40 WBC RBC Hgb Hct MCH Seg Neutrophils % Seg Neutrophils # Glucose POC Glucose 136 H 126 H 122 H
--- NOTE | 2022-01-06 16:17 | Progress Note ---
Assessment and Plan Assessment and plan: --Right sided weakness/acute CVA Not a candidate for tPA/evaluated by telemetry neurologist in the ED Aspirin 325 mg p.o. daily. Lipitor 40 mg p.o. daily. PT OT speech evaluation. MRI of the brain and MRI of the brain and neck with and without contrast. Echocardiogram. Neurology evaluation PT OT ST evaluation -Right hemiparesis; Physical therapy occupational therapy and supportive care - Hypertension; Permissive hypertension per stroke protocol first 24 to 48 hours Lisinopril 20 mg p.o. daily. Metoprolol 12.5 mg p.o. twice daily. Procardia XL 60 mg p.o. daily. We will monitor the patient closely -- type II diabetes melitis Accu-Cheks sliding scale coverage ADA diet Insulin as needed, check A1c if not done last 6 months --DVT prophylaxis SCD for DVT prophylaxis. Pepcid 20 mg IV every 12 hours for GI prophylaxis. Patient is a full code Closely monitor the patient and adjust management as needed Plan of care reviewed with the patient and the nurse Disposition; follow physical therapy, Occupational Therapy, rehabilitation DC planning per case management when patient is medically stable Possible acute versus subacute rehab placement when medically stable Follow-up PT OT eval History Interval history: Seen and examined the patient at the bedside Patient's chart and medications reviewed Patient with acute CVA right-sided hemiparesis Neuro work-up is in progress Patient complains of generalized weakness Vital signs noted Hospitalist Physical - Constitutional Vitals: Temp Pulse Resp BP Pulse Ox 98.1 F 101 H 18 127/72 96 01/06/22 07:58 01/06/22 09:00 01/06/22 11:34 01/06/22 07:58 01/06/22 11:34 General appearance: Present: no acute distress, well-nourished - EENT Eyes: Present: PERRL, EOM intact - Neck Neck: Present: supple, normal ROM - Respiratory Respiratory effort: normal Respiratory: bilateral: diminished, negative: rales, rhonchi, wheezing - Cardiovascular Rhythm: regular Heart Sounds: Present: S1 & S2 - Extremities Extremities: no ischemia, abnormal (Left BKA) Extremity abnormal: other (Right hemiparesis) - Abdominal General gastrointestinal: soft, non-tender, non-distended, normal bowel sounds - Integumentary Integumentary: Present: clear, warm - Psychiatric Psychiatric: appropriate mood/affect, cooperative - Neurologic Neurologic: other (Acute CVA with left hemiparesis) HEART Score - HEART Score Troponin: Troponin T < 0.010 ng/mL (0.00-0.029) 01/03/22 17:10 Results - Labs CBC & Chem 7: 01/03/22 14:29 01/03/22 14:29 Labs: Laboratory Last Values WBC 12.4 K/mm3 (4.5-11.0) H 01/03/22 14:29 RBC 3.35 M/mm3 (3.65-5.03) L 01/03/22 14:29 Hgb 9.1 gm/dl (10.1-14.3) L 01/03/22 14:29 Hct 27.6 % (30.3-42.9) L 01/03/22 14:29 MCV 83 fl (79-97) 01/03/22 14:29 MCH 27 pg (28-32) L 01/03/22 14:29 MCHC 33 % (30-34) 01/03/22 14:29 RDW 15.2 % (13.2-15.2) 01/03/22 14:29 Plt Count 412 K/mm3 (140-440) 01/03/22 14:29 Lymph % (Auto) 18.6 % (13.4-35.0) 01/03/22 14:29 [place] % (Auto) 6.3 % (0.0-7.3) 01/03/22 14:29 Eos % (Auto) 1.4 % (0.0-4.3) 01/03/22 14:29 Baso % (Auto) 1.1 % (0.0-1.8) 01/03/22 14:29 Lymph # (Auto) 2.3 K/mm3 (1.2-5.4) 01/03/22 14:29 [place] # (Auto) 0.8 K/mm3 (0.0-0.8) 01/03/22 14:29 Eos # (Auto) 0.2 K/mm3 (0.0-0.4) 01/03/22 14:29 Baso # (Auto) 0.1 K/mm3 (0.0-0.1) 01/03/22 14:29 Seg Neutrophils % 72.6 % (40.0-70.0) H 01/03/22 14:29 Seg Neutrophils # 9.0 K/mm3 (1.8-7.7) H 01/03/22 14:29 PT 13.0 Sec. (12.2-14.9) 01/03/22 14:29 INR 0.87 (0.87-1.13) 01/03/22 14:29 APTT 33.3 Sec. (24.2-36.6) 01/03/22 18:46 Thrombin Time 19.4 Sec. (15.1-19.6) 01/03/22 17:10 Sodium 140 mmol/L (137-145) 01/03/22 14:29 Potassium 4.0 mmol/L (3.6-5.0) 01/03/22 14:29 Chloride 103.3 mmol/L (98-107) 01/03/22 14:29 Carbon Dioxide 25 mmol/L (22-30) 01/03/22 14:29 Anion Gap 16 mmol/L 01/03/22 14:29 BUN 11 mg/dL (7-17) 01/03/22 14:29 Creatinine 0.8 mg/dL (0.6-1.2) 01/03/22 14:29 Estimated GFR > 60 ml/min 01/03/22 14:29 BUN/Creatinine Ratio 14 % 01/03/22 14:29 Glucose 162 mg/dL (65-100) H 01/03/22 14:29 POC Glucose 160 mg/dL (70-105) H 01/06/22 15:50 Calcium 9.0 mg/dL (8.4-10.2) 01/03/22 14:29 Troponin T < 0.010 ng/mL (0.00-0.029) 01/03/22 17:10 Triglycerides 132 mg/dL (2-149) 01/06/22 11:14 Cholesterol 187 mg/dL (50-199) 01/06/22 11:14 LDL Cholesterol Direct 120 mg/dL (50-130) 01/06/22 11:14 HDL Cholesterol 45 mg/dL (40-59) 01/06/22 11:14 Cholesterol/HDL Ratio 4.15 % 01/06/22 11:14 HCG, Qual Negative (Negative) 01/03/22 18:46 Nasal Screen MRSA (PCR) Negative (Negative) 01/05/22 12:48 Burns/IV: Voiding Method External Female Catheter Active Medications - Current Medications Current Medications: Generic Name Dose Route Start Last Admin Trade Name Freq PRN Reason Stop Dose Admin Acetaminophen 650 mg 01/03/22 21:53 Acetaminophen 325 Mg Tab PO Q4H PRN Pain MILD(1-3)/Fever >100.5/WOLFE Albuterol 2.5 mg 01/03/22 21:53 Albuterol 2.5 Mg/3 Ml Nebu IH Q3HRT PRN Shortness Of Breath Aspirin 325 mg 01/04/22 10:00 01/06/22 10:56 Aspirin 325 Mg Tab PO 325 mg QDAY ROSALINA Administration Atorvastatin Calcium 40 mg 01/03/22 22:00 01/05/22 21:49 Atorvastatin 40 Mg Tab PO 40 mg QHS ROSALINA Administration Dextrose 50 ml 01/03/22 21:53 Dextrose 50% In Water (25gm) 50 Ml Syringe IV Q30MIN PRN Hypoglycemia Protocol Famotidine 20 mg 01/05/22 10:00 01/06/22 10:56 Famotidine 20 Mg Tab PO 20 mg BID ROSALINA Administration Ferrous Sulfate 325 mg 01/04/22 08:00 01/06/22 13:16 Ferrous Sulfate 325 Mg Tab PO 325 mg TID ROSALINA Administration Sodium Chloride 1,000 mls @ 100 mls/hr 01/03/22 22:00 01/06/22 08:23 Nacl 0.9% 1000 Ml IV 100 mls/hr DIRECT ROSALINA Administration Insulin Human Isoph/Insulin Regular 15 unit 01/05/22 08:00 01/06/22 10:19 Insulin Nph/Regular 70/30 Inj SUB-Q Not Given BIDDIAB ROSALINA Insulin Human Lispro 0 unit 01/04/22 00:00 01/06/22 13:00 Insulin Lispro 100 Unit/Ml SUB-Q 2 unit Q6HR ROSALINA Administration Protocol Lisinopril 20 mg 01/04/22 10:00 01/06/22 10:56 Lisinopril 20 Mg Tab PO 20 mg QDAY ROSALINA Administration Metoprolol Tartrate 12.5 mg 01/03/22 22:00 01/06/22 10:56 Metoprolol Tartrate 25 Mg Tab PO 12.5 mg BID ROSALINA Administration Morphine Sulfate 2 mg 01/03/22 21:53 01/06/22 15:48 Morphine 2 Mg/1 Ml Inj IV 2 mg Q4H PRN Administration Pain, Moderate (4-6) Morphine Sulfate 4 mg 01/03/22 21:53 01/05/22 21:49 Morphine 4 Mg/1 Ml Inj IV 4 mg Q4H PRN Administration Pain , Severe (7-10) Nifedipine 60 mg 01/04/22 10:00 01/06/22 10:56 Nifedipine Xl 60 Mg Tab PO 60 mg QDAY ROSALINA Administration Ondansetron HCl 4 mg 01/03/22 21:53 01/06/22 10:57 Ondansetron 4 Mg/2 Ml Inj IV 4 mg Q8H PRN Administration Nausea And Vomiting Silver Sulfadiazine 1 applic 01/04/22 10:00 01/06/22 11:33 Silver Sulfadiazine Cream 50 Gm TP Not Given DAILY ROSALINA Sodium Chloride 10 ml 01/03/22 22:00 01/06/22 10:57 Sodium Chloride 0.9% 10 Ml Flush Syringe IV 10 ml BID ROSALINA Administration Sodium Chloride 10 ml 01/03/22 21:53 Sodium Chloride 0.9% 10 Ml Flush Syringe IV PRN PRN LINE FLUSH Nutrition/Malnutrition Assess - Dietary Evaluation Nutrition/Malnutrition Findings: Nutrition Notes Start: 01/04/22 14:13 Freq: Status: Active Protocol: Document 01/06/22 14:55 KALYAN (Rec: 01/06/22 15:05 KALYAN [id number]) Nutrition Notes Initial or Follow up Brief Note Current Diagnosis Diabetes,Hypertension Other Pertinent Diagnosis (R) sided weakness Current Diet Consistent CHO Labs/Tests POC Glu range since last assessment: 122-244 Pertinent Medications Reviewed Height 5 ft 5 in Weight 97.5 kg [place] Body Weight (kg) 56.81 BMI 35.7 Weight change and time frame AdjBW for (L) BKA: 103.61kg Adj BMI: 37.9 Subjective/Other Information Pt denies need for diet education; she says she is aware of foods/beverages to consume as a diabetic. She is anxious about the (R) sided weakness she is currently experiencing. Results of MRI pending. She was drinking diet Mountain Dew and eating SmartFood popcorn at time of visit (lunch time); doesn't care for foods served at this facility. Burn Absent Trauma Absent Is patient on ventilator? No Is Patient Ambulatory and/or Out of Bed No REE-([facility]-confined to bed) 1994.432 Kcal/Kg value to use for calculation 16 Approximate Energy Requirements Using 1560 kcal/Kg Calculation Used for Recommendations Kcal/kg Additional Notes Pro needs 0.8-1g/kg adjBW: 62- 77g/day Fluid needs 1ml/kcal Nutrition Intervention Follow-Up By: 01/10/22 Additional Comments F/U: intakes, MRI results/(R) sided weakness
[2022-01-07] MEDS: INSULIN LISPRO 100 UNIT/ML SUB-Q SCH ×4 (00:22→18:12)
[2022-01-07] MEDS: ONDANSETRON 4 MG/2 ML INJ IV PRN ×3 (00:50→18:11)
[2022-01-07] MEDS: SODIUM CHLORIDE 0.9% 1000 ML 1,000 ML IV SCH ×2 (01:01→10:08)
[2022-01-07] MEDS: MORPHINE 4 MG/1 ML INJ IV PRN ×2 (02:36→18:11)
--- NOTE | 2022-01-07 08:36 | Event Note ---
Date: 01/07/22 Patient evaluated for IRU admission. Looks to be a good candidate. Can admit AFTER insurance authorization and medical stabilization.
[2022-01-07] MEDS: FERROUS SULFATE 325 MG TAB PO SCH ×3 (09:13→22:01)
[2022-01-07] MEDS: INSULIN NPH/REGULAR 70/30 INJ SUB-Q SCH ×2 (09:46→18:11)
[2022-01-07] MEDS: MORPHINE 2 MG/1 ML INJ IV PRN ×3 (09:54→22:12)
[2022-01-07] MEDS: LISINOPRIL 20 MG TAB PO SCH (09:54)
[2022-01-07] MEDS: FAMOTIDINE 20 MG TAB PO SCH ×2 (09:54→22:01)
[2022-01-07] MEDS: NIFEdipine XL 60 MG TAB PO SCH (09:54)
[2022-01-07] MEDS: ASPIRIN 325 MG TAB PO SCH (09:54)
[2022-01-07] MEDS: METOPROLOL TARTRATE 25 MG TAB PO SCH ×2 (09:55→22:01)
--- NOTE | 2022-01-07 12:06 | Progress Note ---
Assessment and Plan Assessment and plan: --Right sided weakness/acute CVA Not a candidate for tPA/evaluated by telemetry neurologist in the ED Aspirin 325 mg p.o. daily. Lipitor 40 mg p.o. daily. PT OT speech evaluation. MRI of the brain reveals acute ischemic CVA in the left cerebral hemisphere Echocardiogram revealed left ventricular size normal with systolic function also normal and EF 65 to 70%. The right ventricular systolic function normal PT/OT evaluation with recommendations for acute inpatient rehab -Right hemiparesis; Physical therapy occupational therapy and supportive care - Hypertension; Permissive hypertension per stroke protocol first 24 to 48 hours Lisinopril 20 mg p.o. daily. Metoprolol 12.5 mg p.o. twice daily. Procardia XL 60 mg p.o. daily. We will monitor the patient closely -- type II diabetes melitis Accu-Cheks sliding scale coverage ADA diet Insulin as needed, check A1c if not done last 6 months --DVT prophylaxis SCD for DVT prophylaxis. Pepcid 20 mg IV every 12 hours for GI prophylaxis. Patient is a full code Disposition; follow physical therapy, Occupational Therapy, rehabilitation DC planning per case management when patient is medically stable Recommendations are for acute inpatient rehab--awaiting authorization History Interval history: No new issues overnight Hospitalist Physical - Constitutional Vitals: Temp Pulse Resp BP Pulse Ox 98.6 F 107 H 16 145/82 90 01/07/22 08:52 01/07/22 09:55 01/07/22 09:54 01/07/22 09:55 01/07/22 04:21 General appearance: Present: no acute distress, well-nourished - EENT Eyes: Present: PERRL, EOM intact ENT: hearing intact, clear oral mucosa, dentition normal - Neck Neck: Present: supple, normal ROM - Respiratory Respiratory effort: normal Respiratory: bilateral: CTA - Cardiovascular Rhythm: regular Heart Sounds: Present: S1 & S2. Absent: gallop, rub - Extremities Extremities: no ischemia, No edema, Full ROM - Abdominal General gastrointestinal: soft, non-tender, non-distended, normal bowel sounds - Integumentary Integumentary: Present: clear, warm, dry - Neurologic Neurologic: CNII-XII intact, moves all extremities HEART Score - HEART Score Troponin: Troponin T < 0.010 ng/mL (0.00-0.029) 01/03/22 17:10 Results - Labs CBC & Chem 7: 01/03/22 14:29 01/03/22 14:29 Labs: Laboratory Last Values WBC 12.4 K/mm3 (4.5-11.0) H 01/03/22 14:29 RBC 3.35 M/mm3 (3.65-5.03) L 01/03/22 14:29 Hgb 9.1 gm/dl (10.1-14.3) L 01/03/22 14:29 Hct 27.6 % (30.3-42.9) L 01/03/22 14:29 MCV 83 fl (79-97) 01/03/22 14: MCH 27 pg (28-32) L 01/03/22 14: MCHC 33 % (30-34) 01/03/22 14: RDW 15.2 % (13.2-15.2) 01/03/22 14:29 Plt Count 412 K/mm3 (140-440) 01/03/22 14:29 Lymph % (Auto) 18.6 % (13.4-35.0) 01/03/22 14:29 [place] % (Auto) 6.3 % (0.0-7.3) 01/03/22 14:29 Eos % (Auto) 1.4 % (0.0-4.3) 01/03/22 14:29 Baso % (Auto) 1.1 % (0.0-1.8) 01/03/22 14: Lymph # (Auto) 2.3 K/mm3 (1.2-5.4) 01/03/22 14:29 [place]lin # (Auto) 0.8 K/mm3 (0.0-0.8) 01/03/22 14:29 Eos # (Auto) 0.2 K/mm3 (0.0-0.4) 01/03/22 14:29 Baso # (Auto) 0.1 K/mm3 (0.0-0.1) 01/03/22 14:29 Seg Neutrophils % 72.6 % (40.0-70.0) H 01/03/22 14:29 Seg Neutrophils # 9.0 K/mm3 (1.8-7.7) H 01/03/22 14:29 PT 13.0 Sec. (12.2-14.9) 01/03/22 14:29 INR 0.87 (0.87-1.13) 01/03/22 14:29 APTT 33.3 Sec. (24.2-36.6) 01/03/22 18:46 Thrombin Time 19.4 Sec. (15.1-19.6) 01/03/22 17:10 Sodium 140 mmol/L (137-145) 01/03/22 14:29 Potassium 4.0 mmol/L (3.6-5.0) 01/03/22 14:29 Chloride 103.3 mmol/L (98-107) 01/03/22 14:29 Carbon Dioxide 25 mmol/L (22-30) 01/03/22 14:29 Anion Gap 16 mmol/L 01/03/22 14:29 BUN 11 mg/dL (7-17) 01/03/22 14:29 Creatinine 0.8 mg/dL (0.6-1.2) 01/03/22 14:29 Estimated GFR > 60 ml/min 01/03/22 14:29 BUN/Creatinine Ratio 14 % 01/03/22 14:29 Glucose 162 mg/dL (65-100) H 01/03/22 14:29 POC Glucose 129 mg/dL (70-105) H 01/07/22 05:25 Calcium 9.0 mg/dL (8.4-10.2) 01/03/22 14:29 Troponin T < 0.010 ng/mL (0.00-0.029) 01/03/22 17:10 Triglycerides 132 mg/dL (2-149) 01/06/22 11:14 Cholesterol 187 mg/dL (50-199) 01/06/22 11:14 LDL Cholesterol Direct 120 mg/dL (50-130) 01/06/22 11:14 HDL Cholesterol 45 mg/dL (40-59) 01/06/22 11:14 Cholesterol/HDL Ratio 4.15 % 01/06/22 11:14 HCG, Qual Negative (Negative) 01/03/22 18:46 Nasal Screen MRSA (PCR) Negative (Negative) 01/05/22 12:48 Burns/IV: Voiding Method External Female Catheter Active Medications - Current Medications Current Medications: Generic Name Dose Route Start Last Admin Trade Name Freq PRN Reason Stop Dose Admin Acetaminophen 650 mg 01/03/22 21:53 Acetaminophen 325 Mg Tab PO Q4H PRN Pain MILD(1-3)/Fever >100.5/WOLFE Albuterol 2.5 mg 01/03/22 21:53 Albuterol 2.5 Mg/3 Ml Nebu IH Q3HRT PRN Shortness Of Breath Aspirin 325 mg 01/04/22 10:00 01/07/22 09:54 Aspirin 325 Mg Tab PO 325 mg QDAY ROSALINA Administration Atorvastatin Calcium 40 mg 01/03/22 22:00 01/06/22 22:05 Atorvastatin 40 Mg Tab PO 40 mg QHS ROSALINA Administration Dextrose 50 ml 01/03/22 21:53 Dextrose 50% In Water (25gm) 50 Ml Syringe IV Q30MIN PRN Hypoglycemia Protocol Famotidine 20 mg 01/05/22 10:00 01/07/22 09:54 Famotidine 20 Mg Tab PO 20 mg BID ROSALINA Administration Ferrous Sulfate 325 mg 01/04/22 08:00 01/07/22 09:13 Ferrous Sulfate 325 Mg Tab PO Not Given TID [facility] Sodium Chloride 1,000 mls @ 100 mls/hr 01/03/22 22:00 01/07/22 10:08 Nacl 0.9% 1000 Ml IV 100 mls/hr DIRECT ROSALINA Administration Insulin Human Isoph/Insulin Regular 15 unit 01/05/22 08:00 01/07/22 09:46 Insulin Nph/Regular 70/30 Inj SUB-Q 15 unit BIDDIAB ROSALINA Administration Insulin Human Lispro 0 unit 01/04/22 00:00 01/07/22 09:13 Insulin Lispro 100 Unit/Ml SUB-Q Not Given Q6HR [facility] Protocol Lisinopril 20 mg 01/04/22 10:00 01/07/22 09:54 Lisinopril 20 Mg Tab PO 20 mg QDAY ROSALINA Administration Metoprolol Tartrate 12.5 mg 01/03/22 22:00 01/07/22 09:55 Metoprolol Tartrate 25 Mg Tab PO 12.5 mg BID ROSALINA Administration Morphine Sulfate 2 mg 01/03/22 21:53 01/07/22 09:54 Morphine 2 Mg/1 Ml Inj IV 2 mg Q4H PRN Administration Pain, Moderate (4-6) Morphine Sulfate 4 mg 01/03/22 21:53 01/07/22 02:36 Morphine 4 Mg/1 Ml Inj IV 4 mg Q4H PRN Administration Pain , Severe (7-10) Nifedipine 60 mg 01/04/22 10:00 01/07/22 09:54 Nifedipine Xl 60 Mg Tab PO 60 mg QDAY ROSALINA Administration Ondansetron HCl 4 mg 01/03/22 21:53 01/07/22 09:47 Ondansetron 4 Mg/2 Ml Inj IV 4 mg Q8H PRN Administration Nausea And Vomiting Silver Sulfadiazine 1 applic 01/04/22 10:00 01/07/22 09:56 Silver Sulfadiazine Cream 50 Gm TP Not Given DAILY ROSALINA Sodium Chloride 10 ml 01/03/22 22:00 01/07/22 09:46 Sodium Chloride 0.9% 10 Ml Flush Syringe IV 10 ml BID ROSALINA Administration Sodium Chloride 10 ml 01/03/22 21:53 Sodium Chloride 0.9% 10 Ml Flush Syringe IV PRN PRN LINE FLUSH Nutrition/Malnutrition Assess - Dietary Evaluation Nutrition/Malnutrition Findings: Nutrition Notes Start: 01/04/22 14:13 Freq: Status: Active Protocol: Document 01/06/22 14:55 KALYAN (Rec: 01/06/22 15:05 [facility] [id number]) Nutrition Notes Initial or Follow up Brief Note Current Diagnosis Diabetes,Hypertension Other Pertinent Diagnosis (R) sided weakness Current Diet Consistent CHO Labs/Tests POC Glu range since last assessment: 122-244 Pertinent Medications Reviewed Height 5 ft 5 in Weight 97.5 kg [place] Body Weight (kg) 56.81 BMI 35.7 Weight change and time frame AdjBW for (L) BKA: 103.61kg Adj BMI: 37.9 Subjective/Other Information Pt denies need for diet education; she says she is aware of foods/beverages to consume as a diabetic. She is anxious about the (R) sided weakness she is currently experiencing. Results of MRI pending. She was drinking diet Mountain Dew and eating SmartFood popcorn at time of visit (lunch time); doesn't care for foods served at this facility. Burn Absent Trauma Absent Is patient on ventilator? No Is Patient Ambulatory and/or Out of Bed No REE-([facility]-confined to bed) 1994.432 Kcal/Kg value to use for calculation 16 Approximate Energy Requirements Using 1560 kcal/Kg Calculation Used for Recommendations Kcal/kg Additional Notes Pro needs 0.8-1g/kg adjBW: 62- 77g/day Fluid needs 1ml/kcal Nutrition Intervention Follow-Up By: 01/10/22 Additional Comments F/U: intakes, MRI results/(R) sided weakness
[2022-01-07] MEDS ORDERED: ONDANSETRON 4 MG/2 ML INJ IV ONE (23:51)
[2022-01-08] MEDS: INSULIN LISPRO 100 UNIT/ML SUB-Q SCH ×4 (00:39→17:45)
[2022-01-08] MEDS: MORPHINE 4 MG/1 ML INJ IV PRN ×4 (08:06→21:49)
[2022-01-08] MEDS: ONDANSETRON 4 MG/2 ML INJ IV PRN (08:06)
[2022-01-08] MEDS: INSULIN NPH/REGULAR 70/30 INJ SUB-Q SCH ×2 (08:20→17:45)
[2022-01-08] MEDS: FAMOTIDINE 20 MG TAB PO SCH ×2 (10:21→21:42)
[2022-01-08] MEDS: FERROUS SULFATE 325 MG TAB PO SCH ×3 (10:21→21:42)
[2022-01-08] MEDS: LISINOPRIL 20 MG TAB PO SCH (10:22)
[2022-01-08] MEDS: ASPIRIN 325 MG TAB PO SCH (10:22)
[2022-01-08] MEDS: NIFEdipine XL 60 MG TAB PO SCH (10:22)
[2022-01-08] MEDS: METOPROLOL TARTRATE 25 MG TAB PO SCH ×2 (10:23→21:43)
--- NOTE | 2022-01-08 12:40 | Progress Note ---
Assessment and Plan Assessment and plan: --Right sided weakness/acute CVA Not a candidate for tPA/evaluated by telemetry neurologist in the ED Aspirin 325 mg p.o. daily. Lipitor 40 mg p.o. daily. PT OT speech evaluation. MRI of the brain reveals acute ischemic CVA in the left cerebral hemisphere Echocardiogram revealed left ventricular size normal with systolic function also normal and EF 65 to 70%. The right ventricular systolic function normal PT/OT evaluation with recommendations for acute inpatient rehab -Right hemiparesis; Physical therapy occupational therapy and supportive care - Hypertension; Permissive hypertension per stroke protocol first 24 to 48 hours Lisinopril 20 mg p.o. daily. Metoprolol 12.5 mg p.o. twice daily. Procardia XL 60 mg p.o. daily. We will monitor the patient closely -- type II diabetes melitis Accu-Cheks sliding scale coverage ADA diet Insulin as needed, check A1c if not done last 6 months --DVT prophylaxis SCD for DVT prophylaxis. Pepcid 20 mg IV every 12 hours for GI prophylaxis. Patient is a full code Disposition; follow physical therapy, Occupational Therapy, rehabilitation DC planning per case management when patient is medically stable Recommendations are for acute inpatient rehab--awaiting authorization History Interval history: No new issues overnight Hospitalist Physical - Constitutional Vitals: Temp Pulse Resp BP Pulse Ox 98.0 F 108 H 18 161/90 93 01/08/22 11:50 01/08/22 11:50 01/08/22 03:54 01/08/22 11:50 01/08/22 11:50 General appearance: Present: no acute distress, well-nourished - EENT Eyes: Present: PERRL, EOM intact ENT: hearing intact, clear oral mucosa, dentition normal - Neck Neck: Present: supple, normal ROM - Respiratory Respiratory effort: normal Respiratory: bilateral: CTA - Cardiovascular Rhythm: regular Heart Sounds: Present: S1 & S2. Absent: gallop, rub - Extremities Extremities: no ischemia, No edema, Full ROM - Abdominal General gastrointestinal: soft, non-tender, non-distended, normal bowel sounds - Integumentary Integumentary: Present: clear, warm, dry - Neurologic Neurologic: CNII-XII intact, moves all extremities HEART Score - HEART Score Troponin: Troponin T < 0.010 ng/mL (0.00-0.029) 01/03/22 17:10 Results - Labs CBC & Chem 7: 01/03/22 14:29 01/03/22 14:29 Labs: Laboratory Last Values WBC 12.4 K/mm3 (4.5-11.0) H 01/03/22 14:29 RBC 3.35 M/mm3 (3.65-5.03) L 01/03/22 14:29 Hgb 9.1 gm/dl (10.1-14.3) L 01/03/22 14:29 Hct 27.6 % (30.3-42.9) L 01/03/22 14:29 MCV 83 fl (79-97) 01/03/22 14: MCH 27 pg (28-32) L 01/03/22 14: MCHC 33 % (30-34) 01/03/22 14: RDW 15.2 % (13.2-15.2) 01/03/22 14:29 Plt Count 412 K/mm3 (140-440) 01/03/22 14:29 Lymph % (Auto) 18.6 % (13.4-35.0) 01/03/22 14:29 [place] % (Auto) 6.3 % (0.0-7.3) 01/03/22 14:29 Eos % (Auto) 1.4 % (0.0-4.3) 01/03/22 14:29 Baso % (Auto) 1.1 % (0.0-1.8) 01/03/22 14: Lymph # (Auto) 2.3 K/mm3 (1.2-5.4) 01/03/22 14:29 [place] # (Auto) 0.8 K/mm3 (0.0-0.8) 01/03/22 14:29 Eos # (Auto) 0.2 K/mm3 (0.0-0.4) 01/03/22 14:29 Baso # (Auto) 0.1 K/mm3 (0.0-0.1) 01/03/22 14:29 Seg Neutrophils % 72.6 % (40.0-70.0) H 01/03/22 14:29 Seg Neutrophils # 9.0 K/mm3 (1.8-7.7) H 01/03/22 14:29 PT 13.0 Sec. (12.2-14.9) 01/03/22 14:29 INR 0.87 (0.87-1.13) 01/03/22 14:29 APTT 33.3 Sec. (24.2-36.6) 01/03/22 18:46 Thrombin Time 19.4 Sec. (15.1-19.6) 01/03/22 17:10 Sodium 140 mmol/L (137-145) 01/03/22 14:29 Potassium 4.0 mmol/L (3.6-5.0) 01/03/22 14:29 Chloride 103.3 mmol/L (98-107) 01/03/22 14:29 Carbon Dioxide 25 mmol/L (22-30) 01/03/22 14:29 Anion Gap 16 mmol/L 01/03/22 14:29 BUN 11 mg/dL (7-17) 01/03/22 14:29 Creatinine 0.8 mg/dL (0.6-1.2) 01/03/22 14:29 Estimated GFR > 60 ml/min 01/03/22 14:29 BUN/Creatinine Ratio 14 % 01/03/22 14:29 Glucose 162 mg/dL (65-100) H 01/03/22 14:29 POC Glucose 111 mg/dL (70-105) H 01/08/22 11:19 Calcium 9.0 mg/dL (8.4-10.2) 01/03/22 14:29 Troponin T < 0.010 ng/mL (0.00-0.029) 01/03/22 17:10 Triglycerides 132 mg/dL (2-149) 01/06/22 11:14 Cholesterol 187 mg/dL (50-199) 01/06/22 11:14 LDL Cholesterol Direct 120 mg/dL (50-130) 01/06/22 11:14 HDL Cholesterol 45 mg/dL (40-59) 01/06/22 11:14 Cholesterol/HDL Ratio 4.15 % 01/06/22 11:14 HCG, Qual Negative (Negative) 01/03/22 18:46 Nasal Screen MRSA (PCR) Negative (Negative) 01/05/22 12:48 Burns/IV: Voiding Method External Female Catheter Active Medications - Current Medications Current Medications: Generic Name Dose Route Start Last Admin Trade Name Freq PRN Reason Stop Dose Admin Acetaminophen 650 mg 01/03/22 21:53 Acetaminophen 325 Mg Tab PO Q4H PRN Pain MILD(1-3)/Fever >100.5/WOLFE Albuterol 2.5 mg 01/03/22 21:53 Albuterol 2.5 Mg/3 Ml Nebu IH Q3HRT PRN Shortness Of Breath Aspirin 325 mg 01/04/22 10:00 01/08/22 10:22 Aspirin 325 Mg Tab PO 325 mg QDAY ROSALINA Administration Atorvastatin Calcium 40 mg 01/03/22 22:00 01/07/22 22:01 Atorvastatin 40 Mg Tab PO 40 mg QHS ROSALINA Administration Dextrose 50 ml 01/03/22 21:53 Dextrose 50% In Water (25gm) 50 Ml Syringe IV Q30MIN PRN Hypoglycemia Protocol Famotidine 20 mg 01/05/22 10:00 01/08/22 10:21 Famotidine 20 Mg Tab PO 20 mg BID ROSALINA Administration Ferrous Sulfate 325 mg 01/04/22 08:00 01/08/22 10:21 Ferrous Sulfate 325 Mg Tab PO 325 mg TID ROSALINA Administration Sodium Chloride 1,000 mls @ 100 mls/hr 01/03/22 22:00 01/07/22 10:08 Nacl 0.9% 1000 Ml IV 100 mls/hr DIRECT ROSALINA Administration Insulin Human Isoph/Insulin Regular 15 unit 01/05/22 08:00 01/08/22 08:20 Insulin Nph/Regular 70/30 Inj SUB-Q 15 unit BIDDIAB ROSALINA Administration Insulin Human Lispro 0 unit 01/04/22 00:00 01/08/22 11:34 Insulin Lispro 100 Unit/Ml SUB-Q Not Given Q6HR [facility] Protocol Lisinopril 20 mg 01/04/22 10:00 01/08/22 10:22 Lisinopril 20 Mg Tab PO 20 mg QDAY ROSALINA Administration Metoprolol Tartrate 12.5 mg 01/03/22 22:00 01/08/22 10:23 Metoprolol Tartrate 25 Mg Tab PO 12.5 mg BID ROSALINA Administration Morphine Sulfate 2 mg 01/03/22 21:53 01/07/22 22:12 Morphine 2 Mg/1 Ml Inj IV 2 mg Q4H PRN Administration Pain, Moderate (4-6) Morphine Sulfate 4 mg 01/03/22 21:53 01/08/22 12:10 Morphine 4 Mg/1 Ml Inj IV 4 mg Q4H PRN Administration Pain , Severe (7-10) Nifedipine 60 mg 01/04/22 10:00 01/08/22 10:22 Nifedipine Xl 60 Mg Tab PO 60 mg QDAY ROSALINA Administration Ondansetron HCl 4 mg 01/03/22 21:53 01/08/22 08:06 Ondansetron 4 Mg/2 Ml Inj IV 4 mg Q8H PRN Administration Nausea And Vomiting Silver Sulfadiazine 1 applic 01/04/22 10:00 01/07/22 09:56 Silver Sulfadiazine Cream 50 Gm TP Not Given DAILY ROSALINA Sodium Chloride 10 ml 01/03/22 22:00 01/08/22 12:10 Sodium Chloride 0.9% 10 Ml Flush Syringe IV 10 ml BID ROSALINA Administration Sodium Chloride 10 ml 01/03/22 21:53 Sodium Chloride 0.9% 10 Ml Flush Syringe IV PRN PRN LINE FLUSH Nutrition/Malnutrition Assess - Dietary Evaluation Nutrition/Malnutrition Findings: Nutrition Notes Start: 01/04/22 14:13 Freq: Status: Active Protocol: Document 01/06/22 14:55 KALYAN (Rec: 01/06/22 15:05 UTTERE [id number]) Nutrition Notes Initial or Follow up Brief Note Current Diagnosis Diabetes,Hypertension Other Pertinent Diagnosis (R) sided weakness Current Diet Consistent CHO Labs/Tests POC Glu range since last assessment: 122-244 Pertinent Medications Reviewed Height 5 ft 5 in Weight 97.5 kg [place] Body Weight (kg) 56.81 BMI 35.7 Weight change and time frame AdjBW for (L) BKA: 103.61kg Adj BMI: 37.9 Subjective/Other Information Pt denies need for diet education; she says she is aware of foods/beverages to consume as a diabetic. She is anxious about the (R) sided weakness she is currently experiencing. Results of MRI pending. She was drinking diet Mountain Dew and eating Smart[employer] popcorn at time of visit (lunch time); doesn't care for foods served at this facility. Burn Absent Trauma Absent Is patient on ventilator? No Is Patient Ambulatory and/or Out of Bed No REE-([facility]-confined to bed) 1994.432 Kcal/Kg value to use for calculation 16 Approximate Energy Requirements Using 1560 kcal/Kg Calculation Used for Recommendations Kcal/kg Additional Notes Pro needs 0.8-1g/kg adjBW: 62- 77g/day Fluid needs 1ml/kcal Nutrition Intervention Follow-Up By: 01/10/22 Additional Comments F/U: intakes, MRI results/(R) sided weakness
[2022-01-09] MEDS: MORPHINE 4 MG/1 ML INJ IV PRN ×3 (01:33→21:12)
[2022-01-09 04:30] LABS: Basophils % (Auto) 0.3 % (0.0-1.8); Eosinophils # (Auto) 0.2 K/mm3 (0.0-0.4); Hematocrit 23.5 % (30.3-42.9); Hemoglobin 7.7 gm/dl (10.1-14.3); Lymphocytes # (Auto) 2.6 K/mm3 (1.2-5.4); Lymphocytes % (Auto) 21.6 % (13.4-35.0); Mean Corpuscular HGB Conc 33 % (30-34); Mean Corpuscular Volume 83 fl (79-97); Monocytes # (Auto) 0.7 K/mm3 (0.0-0.8); Monocytes % (Auto) 5.4 % (0.0-7.3); Platelet Count 403 K/mm3 (140-440); Red Blood Count 2.82 M/mm3 (3.65-5.03); Red Cell Distribution Width 15.4 % (13.2-15.2)
[2022-01-09 05:01] LABS: BUN/Creatinine Ratio 10; Blood Urea Nitrogen 8 mg/dL (7-17); Calcium 8.2 mg/dL (8.4-10.2); Hemolysis Index 2
[2022-01-09] MEDS: INSULIN LISPRO 100 UNIT/ML SUB-Q SCH ×4 (06:01→17:12)
[2022-01-09] MEDS: FERROUS SULFATE 325 MG TAB PO SCH ×3 (07:55→20:40)
[2022-01-09] MEDS: INSULIN NPH/REGULAR 70/30 INJ SUB-Q SCH ×2 (08:44→17:28)
[2022-01-09] MEDS: MORPHINE 2 MG/1 ML INJ IV PRN ×2 (08:53→13:19)
[2022-01-09] MEDS: NIFEdipine XL 60 MG TAB PO SCH (08:59)
[2022-01-09] MEDS: METOPROLOL TARTRATE 25 MG TAB PO SCH ×2 (08:59→21:03)
[2022-01-09] MEDS: ASPIRIN 325 MG TAB PO SCH (08:59)
[2022-01-09] MEDS: FAMOTIDINE 20 MG TAB PO SCH ×2 (09:00→21:03)
[2022-01-09] MEDS: LISINOPRIL 20 MG TAB PO SCH (09:00)
--- NOTE | 2022-01-09 09:38 | Progress Note ---
Assessment and Plan Assessment and plan: --Right sided weakness/acute CVA Not a candidate for tPA/evaluated by telemetry neurologist in the ED Aspirin 325 mg p.o. daily. Lipitor 40 mg p.o. daily. PT OT speech evaluation. MRI of the brain reveals acute ischemic CVA in the left cerebral hemisphere Echocardiogram revealed left ventricular size normal with systolic function also normal and EF 65 to 70%. The right ventricular systolic function normal PT/OT evaluation with recommendations for acute inpatient rehab -Right hemiparesis; Physical therapy occupational therapy and supportive care - Hypertension; Permissive hypertension per stroke protocol first 24 to 48 hours Lisinopril 20 mg p.o. daily. Metoprolol 12.5 mg p.o. twice daily. Procardia XL 60 mg p.o. daily. We will monitor the patient closely -- type II diabetes melitis Accu-Cheks sliding scale coverage ADA diet Insulin as needed, check A1c if not done last 6 months --DVT prophylaxis SCD for DVT prophylaxis. Pepcid 20 mg IV every 12 hours for GI prophylaxis. Patient is a full code Disposition; follow physical therapy, Occupational Therapy, rehabilitation DC planning per case management when patient is medically stable Recommendations are for acute inpatient rehab--awaiting authorization History Interval history: No new issues overnight Hospitalist Physical - Constitutional Vitals: Temp Pulse Resp BP Pulse Ox 98.3 F 106 H 16 160/84 94 01/09/22 08:44 01/09/22 08:44 01/09/22 03:44 01/09/22 08:44 01/09/22 08:44 General appearance: Present: no acute distress, well-nourished - EENT Eyes: Present: PERRL, EOM intact ENT: hearing intact, clear oral mucosa, dentition normal - Neck Neck: Present: supple, normal ROM - Respiratory Respiratory effort: normal Respiratory: bilateral: CTA - Cardiovascular Rhythm: regular Heart Sounds: Present: S1 & S2. Absent: gallop, rub - Extremities Extremities: no ischemia, No edema, Full ROM - Abdominal General gastrointestinal: soft, non-tender, non-distended, normal bowel sounds - Integumentary Integumentary: Present: clear, warm, dry - Neurologic Neurologic: CNII-XII intact, moves all extremities HEART Score - HEART Score Troponin: Troponin T < 0.010 ng/mL (0.00-0.029) 01/03/22 17:10 Results - Labs CBC & Chem 7: 01/09/22 03:35 01/09/22 03:35 Labs: Laboratory Last Values WBC 12.1 K/mm3 (4.5-11.0) H 01/09/22 03:35 RBC 2.82 M/mm3 (3.65-5.03) L 01/09/22 03:35 Hgb 7.7 gm/dl (10.1-14.3) L 01/09/22 03:35 Hct 23.5 % (30.3-42.9) L 01/09/22 03:35 MCV 83 fl (79-97) 01/09/22 03:35 MCH 27 pg (28-32) L 01/09/22 03:35 MCHC 33 % (30-34) 01/09/22 03:35 RDW 15.4 % (13.2-15.2) H 01/09/22 03:35 Plt Count 403 K/mm3 (140-440) 01/09/22 03:35 Lymph % (Auto) 21.6 % (13.4-35.0) 01/09/22 03:35 [place] % (Auto) 5.4 % (0.0-7.3) 01/09/22 03:35 Eos % (Auto) 2.0 % (0.0-4.3) 01/09/22 03:35 Baso % (Auto) 0.3 % (0.0-1.8) 01/09/22 03:35 Lymph # (Auto) 2.6 K/mm3 (1.2-5.4) 01/09/22 03:35 [place] # (Auto) 0.7 K/mm3 (0.0-0.8) 01/09/22 03:35 Eos # (Auto) 0.2 K/mm3 (0.0-0.4) 01/09/22 03:35 Baso # (Auto) 0.0 K/mm3 (0.0-0.1) 01/09/22 03:35 Seg Neutrophils % 70.7 % (40.0-70.0) H 01/09/22 03:35 Seg Neutrophils # 8.5 K/mm3 (1.8-7.7) H 01/09/22 03:35 PT 13.0 Sec. (12.2-14.9) 01/03/22 14:29 INR 0.87 (0.87-1.13) 01/03/22 14:29 APTT 33.3 Sec. (24.2-36.6) 01/03/22 18:46 Thrombin Time 19.4 Sec. (15.1-19.6) 01/03/22 17:10 Sodium 141 mmol/L (137-145) 01/09/22 03:35 Potassium 4.2 mmol/L (3.6-5.0) 01/09/22 03:35 Chloride 107.7 mmol/L (98-107) H 01/09/22 03:35 Carbon Dioxide 22 mmol/L (22-30) 01/09/22 03:35 Anion Gap 16 mmol/L 01/09/22 03:35 BUN 8 mg/dL (7-17) 01/09/22 03:35 Creatinine 0.8 mg/dL (0.6-1.2) 01/09/22 03:35 Estimated GFR > 60 ml/min 01/09/22 03:35 BUN/Creatinine Ratio 10 % 01/09/22 03:35 Glucose 89 mg/dL (65-100) 01/09/22 03:35 POC Glucose 98 mg/dL (70-105) 01/09/22 05:29 Calcium 8.2 mg/dL (8.4-10.2) L 01/09/22 03:35 Troponin T < 0.010 ng/mL (0.00-0.029) 01/03/22 17:10 Triglycerides 132 mg/dL (2-149) 01/06/22 11:14 Cholesterol 187 mg/dL (50-199) 01/06/22 11:14 LDL Cholesterol Direct 120 mg/dL (50-130) 01/06/22 11:14 HDL Cholesterol 45 mg/dL (40-59) 01/06/22 11:14 Cholesterol/HDL Ratio 4.15 % 01/06/22 11:14 HCG, Qual Negative (Negative) 01/03/22 18:46 Nasal Screen MRSA (PCR) Negative (Negative) 01/05/22 12:48 Burns/IV: Voiding Method External Female Catheter Active Medications - Current Medications Current Medications: Generic Name Dose Route Start Last Admin Trade Name Freq PRN Reason Stop Dose Admin Acetaminophen 650 mg 01/03/22 21:53 Acetaminophen 325 Mg Tab PO Q4H PRN Pain MILD(1-3)/Fever >100.5/WOLFE Albuterol 2.5 mg 01/03/22 21:53 Albuterol 2.5 Mg/3 Ml Nebu IH Q3HRT PRN Shortness Of Breath Aspirin 325 mg 01/04/22 10:00 01/09/22 08:59 Aspirin 325 Mg Tab PO 325 mg QDAY ROSALINA Administration Atorvastatin Calcium 40 mg 01/03/22 22:00 01/08/22 21:42 Atorvastatin 40 Mg Tab PO 40 mg QHS ROSALINA Administration Dextrose 50 ml 01/03/22 21:53 Dextrose 50% In Water (25gm) 50 Ml Syringe IV Q30MIN PRN Hypoglycemia Protocol Famotidine 20 mg 01/05/22 10:00 01/09/22 09:00 Famotidine 20 Mg Tab PO 20 mg BID ROSALINA Administration Ferrous Sulfate 325 mg 01/04/22 08:00 01/09/22 07:55 Ferrous Sulfate 325 Mg Tab PO Not Given TID [facility] Sodium Chloride 1,000 mls @ 100 mls/hr 01/03/22 22:00 01/07/22 10:08 Nacl 0.9% 1000 Ml IV 100 mls/hr DIRECT ROSALINA Administration Insulin Human Isoph/Insulin Regular 15 unit 01/05/22 08:00 01/09/22 08:44 Insulin Nph/Regular 70/30 Inj SUB-Q 15 unit BIDDIAB ROSALINA Administration Insulin Human Lispro 0 unit 01/04/22 00:00 01/09/22 06:01 Insulin Lispro 100 Unit/Ml SUB-Q Not Given Q6HR [facility] Protocol Lisinopril 20 mg 01/04/22 10:00 01/09/22 09:00 Lisinopril 20 Mg Tab PO 20 mg QDAY ROSALINA Administration Metoprolol Tartrate 12.5 mg 01/03/22 22:00 01/09/22 08:59 Metoprolol Tartrate 25 Mg Tab PO 12.5 mg BID ROSALINA Administration Morphine Sulfate 2 mg 01/03/22 21:53 01/09/22 08:53 Morphine 2 Mg/1 Ml Inj IV 2 mg Q4H PRN Administration Pain, Moderate (4-6) Morphine Sulfate 4 mg 01/03/22 21:53 01/09/22 01:33 Morphine 4 Mg/1 Ml Inj IV 4 mg Q4H PRN Administration Pain , Severe (7-10) Nifedipine 60 mg 01/04/22 10:00 01/09/22 08:59 Nifedipine Xl 60 Mg Tab PO 60 mg QDAY ROSALINA Administration Ondansetron HCl 4 mg 01/03/22 21:53 01/08/22 08:06 Ondansetron 4 Mg/2 Ml Inj IV 4 mg Q8H PRN Administration Nausea And Vomiting Silver Sulfadiazine 1 applic 01/04/22 10:00 01/09/22 08:59 Silver Sulfadiazine Cream 50 Gm TP 1 applic DAILY ROSALINA Administration Sodium Chloride 10 ml 01/03/22 22:00 01/09/22 09:00 Sodium Chloride 0.9% 10 Ml Flush Syringe IV 10 ml BID ROSALINA Administration Sodium Chloride 10 ml 01/03/22 21:53 Sodium Chloride 0.9% 10 Ml Flush Syringe IV PRN PRN LINE FLUSH Nutrition/Malnutrition Assess - Dietary Evaluation Nutrition/Malnutrition Findings: Nutrition Notes Start: 01/04/22 14:13 Freq: Status: Active Protocol: Document 01/06/22 14:55 KALYAN (Rec: 01/06/22 15:05 [facility] [id number]) Nutrition Notes Initial or Follow up Brief Note Current Diagnosis Diabetes,Hypertension Other Pertinent Diagnosis (R) sided weakness Current Diet Consistent CHO Labs/Tests POC Glu range since last assessment: 122-244 Pertinent Medications Reviewed Height 5 ft 5 in Weight 97.5 kg [place] Body Weight (kg) 56.81 BMI 35.7 Weight change and time frame AdjBW for (L) BKA: 103.61kg Adj BMI: 37.9 Subjective/Other Information Pt denies need for diet education; she says she is aware of foods/beverages to consume as a diabetic. She is anxious about the (R) sided weakness she is currently experiencing. Results of MRI pending. She was drinking diet Mountain Dew and eating SmartFood popcorn at time of visit (lunch time); doesn't care for foods served at this facility. Burn Absent Trauma Absent Is patient on ventilator? No Is Patient Ambulatory and/or Out of Bed No REE-([facility]-confined to bed) 1994.432 Kcal/Kg value to use for calculation 16 Approximate Energy Requirements Using 1560 kcal/Kg Calculation Used for Recommendations Kcal/kg Additional Notes Pro needs 0.8-1g/kg adjBW: 62- 77g/day Fluid needs 1ml/kcal Nutrition Intervention Follow-Up By: 01/10/22 Additional Comments F/U: intakes, MRI results/(R) sided weakness
--- NOTE | 2022-01-09 10:54 | Discharge Summary ---
Providers - Providers Date of Admission: 01/03/22 21:53 Date of discharge: 01/09/22 Attending physician: MYRIAM CALHOUN 01/03/22 21:53 Consult to Dietitian/Nutrition [CONS] Routine Physician Instructions: Reason For Exam: Reason for Consult: Diet education Consult to Physician [CONS] Routine Comment: Consulting Provider: BIPIN FENG Physician Instructions: Reason For Exam: cva Occupational Therapy Evaluate and Treat [CONS] Routine Comment: Reason For Exam: Neuro deficits Physical Therapy Evaluation and Treat [CONS] Routine Comment: Reason For Exam: Neuro deficits Primary care physician: COMPUTER ARCHITECT Hospitalization Reason for admission: CVA Condition: Serious Hospital course: 36-year-old female with history of diabetes, hypertension, and 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 Patient states that she was able to move her upper and lower extremity after being discharged from her procedure, yesterday, however at approximately 6 PM, she noticed that she was unable to move her right arm or right leg. Patient is right-hand dominant. Lab work was remarkable for anemia (hemoglobin of 9.1). CT, CT a head and neck do not show large vessel occlusion, but ischemia and atherosclerotic disease. Patient will be admitted to the hospital f with diagnosis of acute CVA with right-sided weakness. Patient was not a candidate for tPA per telemetry neurologist in the emergency department. Patient was treated with aspirin and Lipitor for secondary prevention. MRI of the brain reveals acute ischemic CVA in the left cerebral hemisphere. Echocardiogram revealed left ventricular size normal with systolic function also normal and EF 65 to 70%. the right ventricular systolic function normal. Patient initially had permissive hypertension per stroke protocol and then was started on lisinopril 20 mg daily, metoprolol 12.5 mg twice daily and Procardia 60 mg daily. Blood pressure controlled. Patient also had a PT/OT evaluation which recommended IRU placement. Dedicated discharge time 35 minutes Disposition: [facility] Final Discharge Diagnosis (Prints w/discharge instructions): Acute CVA with right-sided weakness, hypertension, diabetes mellitus type Core Measure Documentation - Palliative Care Palliative Care/ Comfort Measures: Not Applicable - Core Measures Any of the following diagnoses?: stroke - Stroke Discharge Requirements Statin for LDL = or >70 mg/dl on DC: Yes Anticoag for atrial fib/atrial flutter: Not Applicable Antithrombotic for ischemic stroke: Yes Exam - Constitutional Vitals: Temp Pulse Resp BP Pulse Ox 98.3 F 106 H 16 160/84 94 01/09/22 08:44 01/09/22 08:44 01/09/22 03:44 01/09/22 08:44 01/09/22 08:44 General appearance: Present: no acute distress, well-nourished - EENT Eyes: Present: PERRL ENT: hearing intact, clear oral mucosa - Neck Neck: Present: supple, normal ROM - Respiratory Respiratory effort: normal Respiratory: bilateral: CTA - Cardiovascular Heart Sounds: Present: S1 & S2. Absent: rub, click - Extremities Extremities: pulses symmetrical, No edema Peripheral Pulses: within normal limits - Abdominal General gastrointestinal: Present: soft, non-tender, non-distended, normal bowel sounds Female genitourinary: Present: normal - Integumentary Integumentary: Present: clear, warm, dry - Musculoskeletal Musculoskeletal: gait normal, strength equal bilaterally - Psychiatric Psychiatric: appropriate mood/affect, intact judgment & insight - Neurologic Neurologic: CNII-XII intact, moves all extremities Plan Activity: advance as tolerated Weight Bearing Status: Weight Bear as Tolerated Diet: diabetic Follow up with: PRIMARY CARE, [Primary Care Provider] - 3-5 Days
[2022-01-10] MEDS: INSULIN LISPRO 100 UNIT/ML SUB-Q SCH ×3 (03:21→18:51)
[2022-01-10] MEDS: MORPHINE 4 MG/1 ML INJ IV PRN ×3 (03:24→15:56)
[2022-01-10] MEDS: INSULIN NPH/REGULAR 70/30 INJ SUB-Q SCH ×2 (08:06→18:52)
--- NOTE | 2022-01-10 11:09 | Progress Note ---
Assessment and Plan Assessment and plan: --Right sided weakness/acute CVA Not a candidate for tPA/evaluated by telemetry neurologist in the ED Aspirin 325 mg p.o. daily. Lipitor 40 mg p.o. daily. PT OT speech evaluation. MRI of the brain reveals acute ischemic CVA in the left cerebral hemisphere Echocardiogram revealed left ventricular size normal with systolic function also normal and EF 65 to 70%. The right ventricular systolic function normal PT/OT evaluation with recommendations for acute inpatient rehab -Right hemiparesis; Physical therapy occupational therapy and supportive care - Hypertension; Permissive hypertension per stroke protocol first 24 to 48 hours Lisinopril 20 mg p.o. daily. Metoprolol 12.5 mg p.o. twice daily. Procardia XL 60 mg p.o. daily. We will monitor the patient closely -- type II diabetes melitis Accu-Cheks sliding scale coverage ADA diet Insulin as needed, check A1c if not done last 6 months --DVT prophylaxis SCD for DVT prophylaxis. Pepcid 20 mg IV every 12 hours for GI prophylaxis. Patient is a full code Disposition; follow physical therapy, Occupational Therapy, rehabilitation DC planning per case management when patient is medically stable Recommendations are for acute inpatient rehab--awaiting authorization History Interval history: No new issues overnight Hospitalist Physical - Constitutional Vitals: Temp Pulse Resp BP Pulse Ox 97.4 F L 98 H 18 137/77 91 01/10/22 08:28 01/10/22 08:28 01/10/22 08:28 01/10/22 08:28 01/10/22 08:28 General appearance: Present: no acute distress, well-nourished - EENT Eyes: Present: PERRL, EOM intact ENT: hearing intact, clear oral mucosa, dentition normal - Neck Neck: Present: supple, normal ROM - Respiratory Respiratory effort: normal Respiratory: bilateral: CTA - Cardiovascular Rhythm: regular Heart Sounds: Present: S1 & S2. Absent: gallop, rub - Extremities Extremities: no ischemia, No edema, Full ROM - Abdominal General gastrointestinal: soft, non-tender, non-distended, normal bowel sounds - Integumentary Integumentary: Present: clear, warm, dry - Neurologic Neurologic: CNII-XII intact, moves all extremities HEART Score - HEART Score Troponin: Troponin T < 0.010 ng/mL (0.00-0.029) 01/03/22 17:10 Results - Labs CBC & Chem 7: 01/09/22 03:35 01/09/22 03:35 Labs: Laboratory Last Values WBC 12.1 K/mm3 (4.5-11.0) H 01/09/22 03:35 RBC 2.82 M/mm3 (3.65-5.03) L 01/09/22 03:35 Hgb 7.7 gm/dl (10.1-14.3) L 01/09/22 03:35 Hct 23.5 % (30.3-42.9) L 01/09/22 03:35 MCV 83 fl (79-97) 01/09/22 03:35 MCH 27 pg (28-32) L 01/09/22 03:35 MCHC 33 % (30-34) 01/09/22 03:35 RDW 15.4 % (13.2-15.2) H 01/09/22 03:35 Plt Count 403 K/mm3 (140-440) 01/09/22 03:35 Lymph % (Auto) 21.6 % (13.4-35.0) 01/09/22 03:35 [place] % (Auto) 5.4 % (0.0-7.3) 01/09/22 03:35 Eos % (Auto) 2.0 % (0.0-4.3) 01/09/22 03:35 Baso % (Auto) 0.3 % (0.0-1.8) 01/09/22 03:35 Lymph # (Auto) 2.6 K/mm3 (1.2-5.4) 01/09/22 03:35 [place] # (Auto) 0.7 K/mm3 (0.0-0.8) 01/09/22 03:35 Eos # (Auto) 0.2 K/mm3 (0.0-0.4) 01/09/22 03:35 Baso # (Auto) 0.0 K/mm3 (0.0-0.1) 01/09/22 03:35 Seg Neutrophils % 70.7 % (40.0-70.0) H 01/09/22 03:35 Seg Neutrophils # 8.5 K/mm3 (1.8-7.7) H 01/09/22 03:35 PT 13.0 Sec. (12.2-14.9) 01/03/22 14:29 INR 0.87 (0.87-1.13) 01/03/22 14:29 APTT 33.3 Sec. (24.2-36.6) 01/03/22 18:46 Thrombin Time 19.4 Sec. (15.1-19.6) 01/03/22 17:10 Sodium 141 mmol/L (137-145) 01/09/22 03:35 Potassium 4.2 mmol/L (3.6-5.0) 01/09/22 03:35 Chloride 107.7 mmol/L (98-107) H 01/09/22 03:35 Carbon Dioxide 22 mmol/L (22-30) 01/09/22 03:35 Anion Gap 16 mmol/L 01/09/22 03:35 BUN 8 mg/dL (7-17) 01/09/22 03:35 Creatinine 0.8 mg/dL (0.6-1.2) 01/09/22 03:35 Estimated GFR > 60 ml/min 01/09/22 03:35 BUN/Creatinine Ratio 10 % 01/09/22 03:35 Glucose 89 mg/dL (65-100) 01/09/22 03:35 POC Glucose 162 mg/dL (70-105) H 01/10/22 05:37 Calcium 8.2 mg/dL (8.4-10.2) L 01/09/22 03:35 Troponin T < 0.010 ng/mL (0.00-0.029) 01/03/22 17:10 Triglycerides 132 mg/dL (2-149) 01/06/22 11:14 Cholesterol 187 mg/dL (50-199) 01/06/22 11:14 LDL Cholesterol Direct 120 mg/dL (50-130) 01/06/22 11:14 HDL Cholesterol 45 mg/dL (40-59) 01/06/22 11:14 Cholesterol/HDL Ratio 4.15 % 01/06/22 11:14 HCG, Qual Negative (Negative) 01/03/22 18:46 Nasal Screen MRSA (PCR) Negative (Negative) 01/05/22 12:48 Burns/IV: Voiding Method External Female Catheter Active Medications - Current Medications Current Medications: Generic Name Dose Route Start Last Admin Trade Name Freq PRN Reason Stop Dose Admin Acetaminophen 650 mg 01/03/22 21:53 Acetaminophen 325 Mg Tab PO Q4H PRN Pain MILD(1-3)/Fever >100.5/WOLFE Albuterol 2.5 mg 01/03/22 21:53 Albuterol 2.5 Mg/3 Ml Nebu IH Q3HRT PRN Shortness Of Breath Aspirin 325 mg 01/04/22 10:00 01/09/22 08:59 Aspirin 325 Mg Tab PO 325 mg QDAY ROSALINA Administration Atorvastatin Calcium 40 mg 01/03/22 22:00 01/09/22 21:03 Atorvastatin 40 Mg Tab PO 40 mg QHS ROSALINA Administration Dextrose 50 ml 01/03/22 21:53 Dextrose 50% In Water (25gm) 50 Ml Syringe IV Q30MIN PRN Hypoglycemia Protocol Famotidine 20 mg 01/05/22 10:00 01/09/22 21:03 Famotidine 20 Mg Tab PO 20 mg BID ROSALINA Administration Ferrous Sulfate 325 mg 01/04/22 08:00 01/09/22 20:40 Ferrous Sulfate 325 Mg Tab PO Not Given TID [facility] Sodium Chloride 1,000 mls @ 100 mls/hr 01/03/22 22:00 01/07/22 10:08 Nacl 0.9% 1000 Ml IV 100 mls/hr DIRECT ROSALINA Administration Insulin Human Isoph/Insulin Regular 15 unit 01/05/22 08:00 01/09/22 17:28 Insulin Nph/Regular 70/30 Inj SUB-Q 15 unit BIDDIAB ROSALINA Administration Insulin Human Lispro 0 unit 01/04/22 00:00 01/10/22 03:21 Insulin Lispro 100 Unit/Ml SUB-Q Not Given Q6HR [facility] Protocol Lisinopril 20 mg 01/04/22 10:00 01/09/22 09:00 Lisinopril 20 Mg Tab PO 20 mg QDAY ROSALINA Administration Metoprolol Tartrate 12.5 mg 01/03/22 22:00 01/09/22 21:03 Metoprolol Tartrate 25 Mg Tab PO 12.5 mg BID ROSALINA Administration Morphine Sulfate 2 mg 01/03/22 21:53 01/09/22 13:19 Morphine 2 Mg/1 Ml Inj IV 2 mg Q4H PRN Administration Pain, Moderate (4-6) Morphine Sulfate 4 mg 01/03/22 21:53 01/10/22 03:24 Morphine 4 Mg/1 Ml Inj IV 4 mg Q4H PRN Administration Pain , Severe (7-10) Nifedipine 60 mg 01/04/22 10:00 01/09/22 08:59 Nifedipine Xl 60 Mg Tab PO 60 mg QDAY ROSALINA Administration Ondansetron HCl 4 mg 01/03/22 21:53 01/08/22 08:06 Ondansetron 4 Mg/2 Ml Inj IV 4 mg Q8H PRN Administration Nausea And Vomiting Silver Sulfadiazine 1 applic 01/04/22 10:00 01/09/22 08:59 Silver Sulfadiazine Cream 50 Gm TP 1 applic DAILY ROSALINA Administration Sodium Chloride 10 ml 01/03/22 22:00 01/09/22 21:09 Sodium Chloride 0.9% 10 Ml Flush Syringe IV 10 ml BID ROSALINA Administration Sodium Chloride 10 ml 01/03/22 21:53 Sodium Chloride 0.9% 10 Ml Flush Syringe IV PRN PRN LINE FLUSH Nutrition/Malnutrition Assess - Dietary Evaluation Nutrition/Malnutrition Findings: Nutrition Notes Start: 01/04/22 14:13 Freq: Status: Active Protocol: Document 01/06/22 14:55 KALYAN (Rec: 01/06/22 15:05 [facility] [id number]) Nutrition Notes Initial or Follow up Brief Note Current Diagnosis Diabetes,Hypertension Other Pertinent Diagnosis (R) sided weakness Current Diet Consistent CHO Labs/Tests POC Glu range since last assessment: 122-244 Pertinent Medications Reviewed Height 5 ft 5 in Weight 97.5 kg [place] Body Weight (kg) 56.81 BMI 35.7 Weight change and time frame AdjBW for (L) BKA: 103.61kg Adj BMI: 37.9 Subjective/Other Information Pt denies need for diet education; she says she is aware of foods/beverages to consume as a diabetic. She is anxious about the (R) sided weakness she is currently experiencing. Results of MRI pending. She was drinking diet Mountain Dew and eating SmartFood popcorn at time of visit (lunch time); doesn't care for foods served at this facility. Burn Absent Trauma Absent Is patient on ventilator? No Is Patient Ambulatory and/or Out of Bed No REE-([facility]-confined to bed) 1994.432 Kcal/Kg value to use for calculation 16 Approximate Energy Requirements Using 1560 kcal/Kg Calculation Used for Recommendations Kcal/kg Additional Notes Pro needs 0.8-1g/kg adjBW: 62- 77g/day Fluid needs 1ml/kcal Nutrition Intervention Follow-Up By: 01/10/22 Additional Comments F/U: intakes, MRI results/(R) sided weakness
[2022-01-10] MEDS: FERROUS SULFATE 325 MG TAB PO SCH ×3 (11:21→21:46)
[2022-01-10] MEDS: FAMOTIDINE 20 MG TAB PO SCH ×2 (11:23→21:46)
[2022-01-10] MEDS: LISINOPRIL 20 MG TAB PO SCH (11:23)
[2022-01-10] MEDS: ASPIRIN 325 MG TAB PO SCH (11:23)
[2022-01-10] MEDS: NIFEdipine XL 60 MG TAB PO SCH (11:23)
[2022-01-10] MEDS: METOPROLOL TARTRATE 25 MG TAB PO SCH ×2 (11:23→21:48)
[2022-01-10 20:42] VITALS: BP 118/67
== END 2022-01-10 23:13 | DRG 65 ==
LOC: ED 13:49 → 4A 21:53
PROVIDERS: ADMIT Hospitalist; ATTEND Hospitalist
DX: I63.9 Cerebral infarction, unspecified (principal); G81.91 Hemiplegia, unspecified affecting right dominant side; I10 Essential (primary) hypertension; E11.9 Type 2 diabetes mellitus without complications; Z89.519 Acquired absence of unspecified leg below knee; Z82.49 Family history of ischemic heart disease and other diseases of the circulatory system; Z83.3 Family history of diabetes mellitus
CPT/HCPCS: 36415; 70450; 70496; 70498; 70544; 70551; 80048; 80061; 82962; 84484; 84703; 85025; 85610; 85670; 85730; 87641; 93005; 93306; 94640; 96374; 99285; G0378; J3490; Q0177; Q9967; C8929; J1815; J2270; J2405; J7030